=== PATIENT | male | born 1940 | race Caucasian/White ===

== ENCOUNTER → 2018-02-15 | Outpatient (CLI) | payer MEDICARE ==
[~2018-02-15] MED LIST: ADAL40KI SQ; AMLO10TA6 PO; APIX2.5T PO; ATOR40TA71 PO; FLUR15CA14 PO; FURO40TA5 PO; LEVO25TA54 PO; METO-409 PO; OMEP20CA10 PO; POTA10CA44 PO; PRAM0.5T3 PO; RAMI10CA69 PO; REGADENOSON 0.4 MG/5 ML PF SYG IVP SCH
== END | disposition home or self-care (01) ==
LOC: SHCH 07:44
PROVIDERS: ATTEND Internal Medicine Cardiovascular Disease
DX: I25.10 Atherosclerotic heart disease of native coronary artery without angina pectoris (principal); I11.0 Hypertensive heart disease with heart failure; I50.22 Chronic systolic (congestive) heart failure; I48.2 Chronic atrial fibrillation
CPT/HCPCS: 78452; 93017; 96374; A9500 ×2; J2785

== ENCOUNTER → 2018-03-01 | Outpatient (CLI) | payer MEDICARE ==
[~2018-03-01] MED LIST changes: -AMLO10TA6 PO; +AMLO10TA7 PO; -REGADENOSON 0.4 MG/5 ML PF SYG IVP SCH
== END | disposition home or self-care (01) ==
LOC: SHCH 10:26
PROVIDERS: ATTEND Internal Medicine Cardiovascular Disease
DX: I25.10 Atherosclerotic heart disease of native coronary artery without angina pectoris (principal); I50.22 Chronic systolic (congestive) heart failure; I48.2 Chronic atrial fibrillation; I87.2 Venous insufficiency (chronic) (peripheral)
CPT/HCPCS: 93306

== ENCOUNTER → 2018-03-19 | Outpatient (CLI) | payer MEDICARE ==
[~2018-03-19] MED LIST changes: +AMLO10TA6 PO; -AMLO10TA7 PO
== END | disposition home or self-care (01) ==
LOC: RAH 09:32
PROVIDERS: ATTEND Internal Medicine
DX: M25.552 Pain in left hip (principal)
CPT/HCPCS: 73502

== ENCOUNTER → 2021-05-03 | Outpatient (CLI) | payer MEDICARE ==
[~2021-05-03] MED LIST changes: +AMLO-258 PO; -AMLO10TA6 PO; -OMEP20CA10 PO; +OMEP20CA12 PO
== END | disposition home or self-care (01) ==
LOC: RAH 07:39
PROVIDERS: ATTEND Internal Medicine
DX: K80.20 Calculus of gallbladder without cholecystitis without obstruction (principal); K76.89 Other specified diseases of liver
CPT/HCPCS: 76705

== ENCOUNTER 2022-03-18 09:18 | Emergency (ER) | payer MEDICARE ==
[~2022-03-18] VITALS: Ht 185.4 cm; Wt 93.0 kg
[~2022-03-18 09:18] MED LIST changes: -POTA10CA44 PO; +POTA10CA45 PO
[2022-03-18 10:01] LABS: BASOPHILS % (AUTO) 0.3 % (0.0-5.0); EOSINOPHILS % (AUTO) 2.2 % (0.0-8.0); HEMATOCRIT 40.7 % (42-54); LYMPHOCYTES % (AUTO) 12.9 % (21.0-51.0); MEAN CORPUSCULAR HEMOGLOBIN 32.6 pg (27.0-33.0); MEAN CORPUSCULAR HGB CONC 32.7 g/dL (32.0-36.0); MEAN CORPUSCULAR VOLUME 99.8 fL (79-99); MONOCYTES % (AUTO) 10.4 % (3.0-13.0); NEUTROPHILS % (AUTO) 73.5 % (40.0-77.0); PLATELET COUNT (AUTO) 134 K/uL (130-400); RED BLOOD CELL COUNT(AUTO) 4.08 MIL/uL (4.50-6.20); RED CELL DISTRIBUTION WIDTH 14.9 % (11.0-15.5); WHITE BLOOD COUNT (AUTO) 7.7 K/uL (4.8-10.8)
[2022-03-18 10:10] LABS: CREATININE 1.3 mg/dL (0.5-1.5); POTASSIUM 3.3 mmol/L (3.5-5.1)
[2022-03-18 10:15] LABS: ALBUMIN 3.1 g/dL (3.5-5.0); TOTAL PROTEIN, SERUM 6.9 g/dL (6.0-8.3)
[2022-03-18] MEDS ORDERED: ZOSYN 3.375GM +NS 50ML IV STA (10:33)
[2022-03-18] MEDS ORDERED: CLINDAMYCIN IVPB 300MG/50ML 50 ML IV SCH (11:00)
[2022-03-18] MEDS ORDERED: AMOX1TAB16 PO (12:05)
[2022-03-18] MEDS ORDERED: CLIN-141 PO (12:05)
[2022-03-18 12:28] VITALS: BP 127/72
== END 2022-03-18 12:27 | disposition home or self-care (01) ==
LOC: EDH 09:18
DX: S81.812A Laceration without foreign body, left lower leg, initial encounter (principal); L97.929 Non-pressure chronic ulcer of unspecified part of left lower leg with unspecified severity; L03.116 Cellulitis of left lower limb; I11.9 Hypertensive heart disease without heart failure; I48.91 Unspecified atrial fibrillation; Z79.01 Long term (current) use of anticoagulants; Z79.899 Other long term (current) drug therapy; Z95.5 Presence of coronary angioplasty implant and graft; Z95.810 Presence of automatic (implantable) cardiac defibrillator; W45.8XXA Other foreign body or object entering through skin, initial encounter; Y93.89 Activity, other specified; Y92.89 Other specified places as the place of occurrence of the external cause; Y99.8 Other external cause status
CPT/HCPCS: 99284; 96365; 80053; 85025; 87040 ×2; 36415; 96368; J2543; J3490; 96375

== ENCOUNTER → 2022-03-23 | Outpatient (CLI) | payer MEDICARE ==
[~2022-03-23] MED LIST changes: +AMOX1TAB16 PO; +CLIN-141 PO
== END | disposition home or self-care (01) ==
LOC: WHH 09:06
PROVIDERS: ATTEND Family Medicine
DX: I87.333 Chronic venous hypertension (idiopathic) with ulcer and inflammation of bilateral lower extremity (principal); L97.812 Non-pressure chronic ulcer of other part of right lower leg with fat layer exposed; L97.822 Non-pressure chronic ulcer of other part of left lower leg with fat layer exposed; I89.0 Lymphedema, not elsewhere classified; I11.9 Hypertensive heart disease without heart failure; I48.20 Chronic atrial fibrillation, unspecified; Z79.01 Long term (current) use of anticoagulants; Z79.899 Other long term (current) drug therapy; Z95.810 Presence of automatic (implantable) cardiac defibrillator; Z95.5 Presence of coronary angioplasty implant and graft
CPT/HCPCS: 11042; A6021; A6197; A4450

== ENCOUNTER → 2022-03-30 | Outpatient (CLI) | payer MEDICARE ==
[~2022-03-30] MED LIST changes: +LIDOCAINE HCL 4% LTA SOL 4 ML VIAL TP ONE
== END | disposition home or self-care (01) ==
LOC: WHH 09:01
PROVIDERS: ATTEND Family Medicine
DX: I87.333 Chronic venous hypertension (idiopathic) with ulcer and inflammation of bilateral lower extremity (principal); E11.622 Type 2 diabetes mellitus with other skin ulcer; L97.812 Non-pressure chronic ulcer of other part of right lower leg with fat layer exposed; L97.822 Non-pressure chronic ulcer of other part of left lower leg with fat layer exposed; I89.0 Lymphedema, not elsewhere classified; I11.9 Hypertensive heart disease without heart failure; I48.20 Chronic atrial fibrillation, unspecified; Z79.01 Long term (current) use of anticoagulants; Z79.899 Other long term (current) drug therapy; Z95.810 Presence of automatic (implantable) cardiac defibrillator; Z95.5 Presence of coronary angioplasty implant and graft
CPT/HCPCS: 11042; A6248; A6021; A6197

== ENCOUNTER → 2022-04-10 | Outpatient (CLI) | payer MEDICARE ==
[~2022-04-10] MED LIST changes: +SILVER NITRATE APPLICATOR 1 SWAB TP ONE
== END | disposition home or self-care (01) ==
LOC: WHH 09:42
PROVIDERS: ATTEND Family Medicine
DX: I87.333 Chronic venous hypertension (idiopathic) with ulcer and inflammation of bilateral lower extremity (principal); E11.622 Type 2 diabetes mellitus with other skin ulcer; L97.812 Non-pressure chronic ulcer of other part of right lower leg with fat layer exposed; L97.822 Non-pressure chronic ulcer of other part of left lower leg with fat layer exposed; I89.0 Lymphedema, not elsewhere classified; I11.9 Hypertensive heart disease without heart failure; I48.20 Chronic atrial fibrillation, unspecified; Z79.01 Long term (current) use of anticoagulants; Z79.899 Other long term (current) drug therapy; Z95.810 Presence of automatic (implantable) cardiac defibrillator; Z95.5 Presence of coronary angioplasty implant and graft
CPT/HCPCS: 11042; A6021; A6197

== ENCOUNTER → 2022-04-17 | Outpatient (CLI) | payer MEDICARE ==
[~2022-04-17] MED LIST changes: -SILVER NITRATE APPLICATOR 1 SWAB TP ONE
== END | disposition home or self-care (01) ==
LOC: WHH 10:16
PROVIDERS: ATTEND Family Medicine
DX: I87.333 Chronic venous hypertension (idiopathic) with ulcer and inflammation of bilateral lower extremity (principal); E11.622 Type 2 diabetes mellitus with other skin ulcer; L97.812 Non-pressure chronic ulcer of other part of right lower leg with fat layer exposed; L97.822 Non-pressure chronic ulcer of other part of left lower leg with fat layer exposed; I89.0 Lymphedema, not elsewhere classified; I11.9 Hypertensive heart disease without heart failure; I48.20 Chronic atrial fibrillation, unspecified; Z79.01 Long term (current) use of anticoagulants; Z79.899 Other long term (current) drug therapy; Z95.810 Presence of automatic (implantable) cardiac defibrillator; Z95.5 Presence of coronary angioplasty implant and graft
CPT/HCPCS: 11042; A6021; A6197; A4450

== ENCOUNTER → 2022-04-24 | Outpatient (CLI) | payer MEDICARE | END | disposition home or self-care (01) | LOC: WHH 09:14 | PROVIDERS: ATTEND Family Medicine | DX: I87.333 Chronic venous hypertension (idiopathic) with ulcer and inflammation of bilateral lower extremity (principal); E11.622 Type 2 diabetes mellitus with other skin ulcer; L97.812 Non-pressure chronic ulcer of other part of right lower leg with fat layer exposed; L97.822 Non-pressure chronic ulcer of other part of left lower leg with fat layer exposed; I89.0 Lymphedema, not elsewhere classified; I11.9 Hypertensive heart disease without heart failure; I48.20 Chronic atrial fibrillation, unspecified; Z79.01 Long term (current) use of anticoagulants; Z79.899 Other long term (current) drug therapy; Z95.810 Presence of automatic (implantable) cardiac defibrillator; Z95.5 Presence of coronary angioplasty implant and graft | CPT/HCPCS: 11042; A6021; A6197 ==

== ENCOUNTER → 2022-05-01 | Outpatient (CLI) | payer MEDICARE | END | disposition home or self-care (01) | LOC: WHH 09:51 | PROVIDERS: ATTEND Family Medicine | DX: I87.333 Chronic venous hypertension (idiopathic) with ulcer and inflammation of bilateral lower extremity (principal); E11.622 Type 2 diabetes mellitus with other skin ulcer; L97.812 Non-pressure chronic ulcer of other part of right lower leg with fat layer exposed; L97.822 Non-pressure chronic ulcer of other part of left lower leg with fat layer exposed; I89.0 Lymphedema, not elsewhere classified; I11.9 Hypertensive heart disease without heart failure; I48.20 Chronic atrial fibrillation, unspecified; Z79.01 Long term (current) use of anticoagulants; Z79.899 Other long term (current) drug therapy; Z95.810 Presence of automatic (implantable) cardiac defibrillator; Z95.5 Presence of coronary angioplasty implant and graft | CPT/HCPCS: 11042; A6021; A6197 ==

== ENCOUNTER → 2022-05-09 | Outpatient (CLI) | payer MEDICARE ==
[~2022-05-09] MED LIST changes: -LIDOCAINE HCL 4% LTA SOL 4 ML VIAL TP ONE
== END | disposition home or self-care (01) ==
LOC: SHCH 15:15
PROVIDERS: ATTEND Internal Medicine Cardiovascular Disease
DX: I34.0 Nonrheumatic mitral (valve) insufficiency (principal); I34.81 Nonrheumatic mitral (valve) annulus calcification; I11.9 Hypertensive heart disease without heart failure; E78.5 Hyperlipidemia, unspecified; Z95.2 Presence of prosthetic heart valve; Z95.0 Presence of cardiac pacemaker; Z95.1 Presence of aortocoronary bypass graft
CPT/HCPCS: 93306

== ENCOUNTER → 2022-05-15 | Outpatient (CLI) | payer MEDICARE ==
[~2022-05-15] MED LIST changes: +LIDOCAINE HCL 4% LTA SOL 4 ML VIAL TP ONE
== END | disposition home or self-care (01) ==
LOC: WHH 09:03
PROVIDERS: ATTEND Family Medicine
DX: I87.333 Chronic venous hypertension (idiopathic) with ulcer and inflammation of bilateral lower extremity (principal); E11.622 Type 2 diabetes mellitus with other skin ulcer; L97.812 Non-pressure chronic ulcer of other part of right lower leg with fat layer exposed; L97.822 Non-pressure chronic ulcer of other part of left lower leg with fat layer exposed; I89.0 Lymphedema, not elsewhere classified; I11.9 Hypertensive heart disease without heart failure; I48.20 Chronic atrial fibrillation, unspecified; Z79.01 Long term (current) use of anticoagulants; Z79.899 Other long term (current) drug therapy; Z95.810 Presence of automatic (implantable) cardiac defibrillator; Z95.5 Presence of coronary angioplasty implant and graft
CPT/HCPCS: 11042; A6021; A6197

== ENCOUNTER → 2022-05-22 | Outpatient (CLI) | payer MEDICARE | END | disposition home or self-care (01) | LOC: WHH 08:48 | PROVIDERS: ATTEND Family Medicine | DX: I87.333 Chronic venous hypertension (idiopathic) with ulcer and inflammation of bilateral lower extremity (principal); E11.622 Type 2 diabetes mellitus with other skin ulcer; L97.822 Non-pressure chronic ulcer of other part of left lower leg with fat layer exposed; L97.812 Non-pressure chronic ulcer of other part of right lower leg with fat layer exposed; I89.0 Lymphedema, not elsewhere classified; I11.9 Hypertensive heart disease without heart failure; I48.20 Chronic atrial fibrillation, unspecified; Z79.01 Long term (current) use of anticoagulants; Z79.899 Other long term (current) drug therapy; Z95.810 Presence of automatic (implantable) cardiac defibrillator; Z95.5 Presence of coronary angioplasty implant and graft | CPT/HCPCS: 11042; A6021; A6197 ==

== ENCOUNTER → 2022-05-23 | Outpatient (CLI) | payer MEDICARE ==
[~2022-05-23] MED LIST changes: -LIDOCAINE HCL 4% LTA SOL 4 ML VIAL TP ONE
== END | disposition home or self-care (01) ==
LOC: SHCH 09:45
PROVIDERS: ATTEND Internal Medicine Cardiovascular Disease
DX: I87.2 Venous insufficiency (chronic) (peripheral) (principal)
CPT/HCPCS: 93970

== ENCOUNTER → 2022-06-06 | Outpatient (CLI) | payer MEDICARE ==
[~2022-06-06] MED LIST changes: +HONEY 1 APPL/ML TUBE TP ONE; +LIDOCAINE HCL 4% LTA SOL 4 ML VIAL TP ONE
== END | disposition home or self-care (01) ==
LOC: WHH 09:15
PROVIDERS: ATTEND Family Medicine
DX: I87.333 Chronic venous hypertension (idiopathic) with ulcer and inflammation of bilateral lower extremity (principal); E11.622 Type 2 diabetes mellitus with other skin ulcer; L97.822 Non-pressure chronic ulcer of other part of left lower leg with fat layer exposed; L97.812 Non-pressure chronic ulcer of other part of right lower leg with fat layer exposed; I89.0 Lymphedema, not elsewhere classified; I11.9 Hypertensive heart disease without heart failure; I48.20 Chronic atrial fibrillation, unspecified; Z79.01 Long term (current) use of anticoagulants; Z79.899 Other long term (current) drug therapy; Z95.810 Presence of automatic (implantable) cardiac defibrillator; Z95.5 Presence of coronary angioplasty implant and graft
CPT/HCPCS: 11042; A6197; A4450

== ENCOUNTER → 2022-06-13 | Outpatient (CLI) | payer MEDICARE ==
[~2022-06-13] MED LIST changes: -HONEY 1 APPL/ML TUBE TP ONE
== END | disposition home or self-care (01) ==
LOC: WHH 08:59
PROVIDERS: ATTEND Family Medicine
DX: I87.333 Chronic venous hypertension (idiopathic) with ulcer and inflammation of bilateral lower extremity (principal); E11.622 Type 2 diabetes mellitus with other skin ulcer; L97.812 Non-pressure chronic ulcer of other part of right lower leg with fat layer exposed; L97.822 Non-pressure chronic ulcer of other part of left lower leg with fat layer exposed; I89.0 Lymphedema, not elsewhere classified; I11.9 Hypertensive heart disease without heart failure; I48.20 Chronic atrial fibrillation, unspecified; Z79.01 Long term (current) use of anticoagulants; Z79.899 Other long term (current) drug therapy; Z95.810 Presence of automatic (implantable) cardiac defibrillator; Z95.5 Presence of coronary angioplasty implant and graft
CPT/HCPCS: 11042; A6197

== ENCOUNTER → 2022-07-04 | Outpatient (CLI) | payer MEDICARE | END | disposition home or self-care (01) | LOC: WHH 10:29 | PROVIDERS: ATTEND Family Medicine | DX: I87.333 Chronic venous hypertension (idiopathic) with ulcer and inflammation of bilateral lower extremity (principal); E11.622 Type 2 diabetes mellitus with other skin ulcer; L97.812 Non-pressure chronic ulcer of other part of right lower leg with fat layer exposed; L97.822 Non-pressure chronic ulcer of other part of left lower leg with fat layer exposed; I89.0 Lymphedema, not elsewhere classified; I11.9 Hypertensive heart disease without heart failure; E78.5 Hyperlipidemia, unspecified; I25.10 Atherosclerotic heart disease of native coronary artery without angina pectoris; I48.20 Chronic atrial fibrillation, unspecified; Z79.01 Long term (current) use of anticoagulants; Z79.899 Other long term (current) drug therapy; Z95.810 Presence of automatic (implantable) cardiac defibrillator; Z95.5 Presence of coronary angioplasty implant and graft | CPT/HCPCS: 11042; A6196; A4450 ==

== ENCOUNTER → 2022-07-11 | Outpatient (CLI) | payer MEDICARE ==
[~2022-07-11] MED LIST changes: -LIDOCAINE HCL 4% LTA SOL 4 ML VIAL TP ONE; +REGADENOSON 0.4 MG/5 ML PF SYG IVP ONE
== END | disposition home or self-care (01) ==
LOC: SHCH 08:15
PROVIDERS: ATTEND Internal Medicine Cardiovascular Disease
DX: I25.110 Atherosclerotic heart disease of native coronary artery with unstable angina pectoris (principal); I48.91 Unspecified atrial fibrillation; R94.39 Abnormal result of other cardiovascular function study; I11.9 Hypertensive heart disease without heart failure; I25.5 Ischemic cardiomyopathy; I87.2 Venous insufficiency (chronic) (peripheral); I87.1 Compression of vein; E78.49 Other hyperlipidemia; Z95.1 Presence of aortocoronary bypass graft; Z95.0 Presence of cardiac pacemaker; Z79.899 Other long term (current) drug therapy
CPT/HCPCS: 78452; 96374; 93017; J2785; A9500 ×2

== ENCOUNTER → 2023-05-14 | Outpatient (CLI) | payer MEDICARE ==
[~2023-05-14] MED LIST changes: +LIDOCAINE HCL 4% LTA SOL 4 ML VIAL TP ONE; -POTA10CA45 PO; +POTA10CA85 PO; -REGADENOSON 0.4 MG/5 ML PF SYG IVP ONE
== END | disposition home or self-care (01) ==
LOC: WHH 09:41
PROVIDERS: ATTEND Nurse Practitioner Family
DX: S81.812A Laceration without foreign body, left lower leg, initial encounter (principal); L97.822 Non-pressure chronic ulcer of other part of left lower leg with fat layer exposed; K21.9 Gastro-esophageal reflux disease without esophagitis; I73.9 Peripheral vascular disease, unspecified; G25.81 Restless legs syndrome; I10 Essential (primary) hypertension; E03.9 Hypothyroidism, unspecified; H26.9 Unspecified cataract; I25.10 Atherosclerotic heart disease of native coronary artery without angina pectoris; Z87.891 Personal history of nicotine dependence; Z79.899 Other long term (current) drug therapy; W22.8XXA Striking against or struck by other objects, initial encounter; Y93.89 Activity, other specified; Y92.89 Other specified places as the place of occurrence of the external cause; Y99.8 Other external cause status
CPT/HCPCS: 11042; 87070; 87077; 87186; 11045; A6248; A4450; A6260

== ENCOUNTER → 2023-05-21 | Outpatient (CLI) | payer MEDICARE ==
[~2023-05-21] MED LIST changes: -LIDOCAINE HCL 4% LTA SOL 4 ML VIAL TP ONE
== END | disposition home or self-care (01) ==
LOC: WHH 09:43
PROVIDERS: ATTEND Nurse Practitioner Family
DX: S81.812D Laceration without foreign body, left lower leg, subsequent encounter (principal); S81.802D Unspecified open wound, left lower leg, subsequent encounter; L97.822 Non-pressure chronic ulcer of other part of left lower leg with fat layer exposed; K21.9 Gastro-esophageal reflux disease without esophagitis; I73.9 Peripheral vascular disease, unspecified; G25.81 Restless legs syndrome; I10 Essential (primary) hypertension; E03.9 Hypothyroidism, unspecified; H26.9 Unspecified cataract; M10.9 Gout, unspecified; I25.10 Atherosclerotic heart disease of native coronary artery without angina pectoris; Z98.49 Cataract extraction status, unspecified eye; Z90.49 Acquired absence of other specified parts of digestive tract; Z87.891 Personal history of nicotine dependence; Z79.899 Other long term (current) drug therapy; W22.8XXD Striking against or struck by other objects, subsequent encounter
CPT/HCPCS: 11042; 11045; A6250; A6197

== ENCOUNTER → 2023-05-28 | Outpatient (CLI) | payer MEDICARE | END | disposition home or self-care (01) | LOC: WHH 09:40 | PROVIDERS: ATTEND Nurse Practitioner Family | DX: S81.812D Laceration without foreign body, left lower leg, subsequent encounter (principal); L97.822 Non-pressure chronic ulcer of other part of left lower leg with fat layer exposed; K21.9 Gastro-esophageal reflux disease without esophagitis; I73.9 Peripheral vascular disease, unspecified; I10 Essential (primary) hypertension; I25.10 Atherosclerotic heart disease of native coronary artery without angina pectoris; E03.9 Hypothyroidism, unspecified; M10.9 Gout, unspecified; G25.81 Restless legs syndrome; Z87.891 Personal history of nicotine dependence; Z79.899 Other long term (current) drug therapy; Z98.49 Cataract extraction status, unspecified eye; Z90.49 Acquired absence of other specified parts of digestive tract; W22.8XXD Striking against or struck by other objects, subsequent encounter | CPT/HCPCS: 11042; 11045; A6250; A6197; A6260 ==

== ENCOUNTER → 2023-05-29 | Outpatient (CLI) | payer MEDICARE | END | disposition home or self-care (01) | LOC: WHH 10:12 | PROVIDERS: ATTEND Nurse Practitioner Family | DX: S81.812D Laceration without foreign body, left lower leg, subsequent encounter (principal); L97.822 Non-pressure chronic ulcer of other part of left lower leg with fat layer exposed; K21.9 Gastro-esophageal reflux disease without esophagitis; I73.9 Peripheral vascular disease, unspecified; I10 Essential (primary) hypertension; I25.10 Atherosclerotic heart disease of native coronary artery without angina pectoris; E03.9 Hypothyroidism, unspecified; M10.9 Gout, unspecified; G25.81 Restless legs syndrome; Z98.49 Cataract extraction status, unspecified eye; Z90.49 Acquired absence of other specified parts of digestive tract; Z87.891 Personal history of nicotine dependence; Z79.899 Other long term (current) drug therapy; W22.8XXD Striking against or struck by other objects, subsequent encounter | CPT/HCPCS: 93922; A6197 ==

== ENCOUNTER → 2023-06-04 | Outpatient (CLI) | payer MEDICARE ==
[~2023-06-04] MED LIST changes: +LIDOCAINE HCL 4% LTA SOL 4 ML VIAL TP ONE
== END | disposition home or self-care (01) ==
LOC: WHH 10:25
PROVIDERS: ATTEND Nurse Practitioner Family
DX: S81.812D Laceration without foreign body, left lower leg, subsequent encounter (principal); L97.822 Non-pressure chronic ulcer of other part of left lower leg with fat layer exposed; K21.9 Gastro-esophageal reflux disease without esophagitis; I73.9 Peripheral vascular disease, unspecified; I10 Essential (primary) hypertension; I25.10 Atherosclerotic heart disease of native coronary artery without angina pectoris; E03.9 Hypothyroidism, unspecified; M10.9 Gout, unspecified; G25.81 Restless legs syndrome; Z98.49 Cataract extraction status, unspecified eye; Z90.49 Acquired absence of other specified parts of digestive tract; Z87.891 Personal history of nicotine dependence; Z79.899 Other long term (current) drug therapy; W22.8XXD Striking against or struck by other objects, subsequent encounter
CPT/HCPCS: 11042; 11045; A6197; A4450

== ENCOUNTER → 2023-06-11 | Outpatient (CLI) | payer MEDICARE | END | disposition home or self-care (01) | LOC: WHH 09:59 | PROVIDERS: ATTEND Nurse Practitioner Family | DX: S81.812D Laceration without foreign body, left lower leg, subsequent encounter (principal); L97.822 Non-pressure chronic ulcer of other part of left lower leg with fat layer exposed; I87.8 Other specified disorders of veins; I10 Essential (primary) hypertension; I73.9 Peripheral vascular disease, unspecified; K21.9 Gastro-esophageal reflux disease without esophagitis; I25.10 Atherosclerotic heart disease of native coronary artery without angina pectoris; E03.9 Hypothyroidism, unspecified; M10.9 Gout, unspecified; G25.81 Restless legs syndrome; Z98.49 Cataract extraction status, unspecified eye; Z90.49 Acquired absence of other specified parts of digestive tract; Z87.891 Personal history of nicotine dependence; Z79.899 Other long term (current) drug therapy; W22.8XXD Striking against or struck by other objects, subsequent encounter | CPT/HCPCS: 11042; 11045; A6196; A6022 ==

== ENCOUNTER → 2023-06-18 | Outpatient (CLI) | payer MEDICARE | END | disposition home or self-care (01) | LOC: WHH 09:47 | PROVIDERS: ATTEND Nurse Practitioner Family | DX: S81.802D Unspecified open wound, left lower leg, subsequent encounter (principal); I87.8 Other specified disorders of veins; I10 Essential (primary) hypertension; I73.9 Peripheral vascular disease, unspecified; K21.9 Gastro-esophageal reflux disease without esophagitis; I25.10 Atherosclerotic heart disease of native coronary artery without angina pectoris; E03.9 Hypothyroidism, unspecified; M10.9 Gout, unspecified; G25.81 Restless legs syndrome; Z98.49 Cataract extraction status, unspecified eye; Z90.49 Acquired absence of other specified parts of digestive tract; Z87.891 Personal history of nicotine dependence; Z79.899 Other long term (current) drug therapy; W22.8XXD Striking against or struck by other objects, subsequent encounter | CPT/HCPCS: 11042; 11045; A6197; A6022 ==

== ENCOUNTER → 2023-06-25 | Outpatient (CLI) | payer MEDICARE | END | disposition home or self-care (01) | LOC: WHH 08:29 | PROVIDERS: ATTEND Nurse Practitioner Family | DX: L97.822 Non-pressure chronic ulcer of other part of left lower leg with fat layer exposed (principal); S81.802D Unspecified open wound, left lower leg, subsequent encounter; I87.8 Other specified disorders of veins; I10 Essential (primary) hypertension; I73.9 Peripheral vascular disease, unspecified; K21.9 Gastro-esophageal reflux disease without esophagitis; E03.9 Hypothyroidism, unspecified; I25.10 Atherosclerotic heart disease of native coronary artery without angina pectoris; G25.81 Restless legs syndrome; M10.9 Gout, unspecified; Z98.49 Cataract extraction status, unspecified eye; Z90.49 Acquired absence of other specified parts of digestive tract; Z87.891 Personal history of nicotine dependence; Z79.899 Other long term (current) drug therapy; W22.8XXD Striking against or struck by other objects, subsequent encounter | CPT/HCPCS: 11042; A6250; A6197; A6022 ==

== ENCOUNTER → 2023-06-29 | Emergency (ER) | payer MEDICARE ==
[~2023-06-29] VITALS: Ht 185.4 cm; Wt 90.7 kg
[~2023-06-29] MED LIST changes: -LIDOCAINE HCL 4% LTA SOL 4 ML VIAL TP ONE
[2023-06-29 11:24] LABS: BASOPHILS # (AUTO) 0.05 K/uL (0.00-0.20); BASOPHILS % (AUTO) 0.7 % (0.0-5.0); EOSINOPHILS % (AUTO) 2.8 % (0.0-8.0); HEMATOCRIT 32.7 % (42-54); IMMATURE GRANULOCYTE ABSOLUTE 0.03 K/uL (0-1); LYMPHOCYTES # (AUTO) 1.1 K/uL (1.0-4.8); LYMPHOCYTES % (AUTO) 15.1 % (21.0-51.0); MEAN CORPUSCULAR HEMOGLOBIN 28.6 pg (27.0-33.0); MEAN CORPUSCULAR HGB CONC 30.9 g/dL (32.0-36.0); MEAN CORPUSCULAR VOLUME 92.6 fL (79-99); MONOCYTES # (AUTO) 0.6 K/uL (0.1-1.0); MONOCYTES % (AUTO) 8.3 % (3.0-13.0); NEUTROPHILS # (AUTO) 5.2 K/uL (1.8-7.7); NEUTROPHILS % (AUTO) 72.7 % (40.0-77.0); PLATELET COUNT (AUTO) 169 K/uL (130-400); RED BLOOD CELL COUNT(AUTO) 3.53 MIL/uL (4.50-6.20); RED CELL DISTRIBUTION WIDTH 17.4 % (11.0-15.5); WHITE BLOOD COUNT (AUTO) 7.2 K/uL (4.8-10.8)
[2023-06-29 11:36] LABS: INR 1.07 (0.85-1.15); PROTHROMBIN TIME 12.6 SEC (9.6-11.6)
[2023-06-29 11:37] LABS: PARTIAL THROMBOPLASTIN TIME 34.8 SEC (26.3-35.5)
[2023-06-29 11:41] LABS: ALBUMIN 3.1 g/dL (3.5-5.0); BILIRUBIN,TOTAL 1.9 mg/dL (0.2-1.0); CREATININE 1.8 mg/dL (0.5-1.3); TOTAL PROTEIN, SERUM 6.8 g/dL (6.0-8.3)
[2023-06-29 12:11] LABS: APPEARANCE,URINE CLEAR (CLEAR); BILIRUBIN,URINE NEGATIVE (NEGATIVE); COLOR,URINE LIGHT-YELLOW (YELLOW); GLUCOSE, URINE (UA) NEGATIVE (NEGATIVE); KETONES,URINE NEGATIVE (NEGATIVE); LEUKOCYTE ESTERASE ,URINE NEGATIVE Leu/uL (NEGATIVE); NITRATE,URINE NEGATIVE (NEGATIVE); OCCULT BLOOD,URINE NEGATIVE (NEGATIVE); PH,URINE 5.5 (5.0-8.0); PROTEIN,URINE NEGATIVE (NEGATIVE); UROBILINOGEN,URINE 0.2 mg/dL (0.2-1.0)
[2023-06-29] MEDS: POTASSIUM CHLORIDE 20MEQ/100ML 100 ML IV ONE (12:11)
[2023-06-29 12:12] LABS: ADD UA MICROSCOPIC NO
[2023-06-29 12:16] LABS: B-TYPE NATRIURETIC PEPTIDE 602 pg/mL (0-100)
[2023-06-29 14:19] VITALS: BP 145/87; PULSE 87; RESP 18; O2SAT 94
== END ==
LOC: EDH 10:52
DX: I50.23 Acute on chronic systolic (congestive) heart failure (principal); L97.829 Non-pressure chronic ulcer of other part of left lower leg with unspecified severity; R06.02 Shortness of breath; I10 Essential (primary) hypertension; I48.91 Unspecified atrial fibrillation; Z79.899 Other long term (current) drug therapy; Z95.5 Presence of coronary angioplasty implant and graft; Z98.890 Other specified postprocedural states
CPT/HCPCS: 99285; 96365; 71045; 84484; 80053; 83880; 85025; 85610; 85730; 81003; 36415; 93005; J3480

== ENCOUNTER → 2023-07-02 | Outpatient (CLI) | payer MEDICARE ==
[~2023-07-02] MED LIST changes: +LIDOCAINE HCL 4% LTA SOL 4 ML VIAL TP ONE
== END | disposition home or self-care (01) ==
LOC: WHH 09:38
PROVIDERS: ATTEND Nurse Practitioner Family
DX: L97.822 Non-pressure chronic ulcer of other part of left lower leg with fat layer exposed (principal); S81.802D Unspecified open wound, left lower leg, subsequent encounter; I87.8 Other specified disorders of veins; I10 Essential (primary) hypertension; I73.9 Peripheral vascular disease, unspecified; K21.9 Gastro-esophageal reflux disease without esophagitis; E03.9 Hypothyroidism, unspecified; I25.10 Atherosclerotic heart disease of native coronary artery without angina pectoris; G25.81 Restless legs syndrome; M10.9 Gout, unspecified; Z98.49 Cataract extraction status, unspecified eye; Z90.49 Acquired absence of other specified parts of digestive tract; Z87.891 Personal history of nicotine dependence; Z79.899 Other long term (current) drug therapy; W22.8XXD Striking against or struck by other objects, subsequent encounter
CPT/HCPCS: 11042; A6197; A6022; A4450

== ENCOUNTER 2024-02-05 19:18 | Inpatient (IN) | payer MEDICARE ==
[~2024-02-05] VITALS: Ht 182.9 cm; Wt 95.6 kg
[~2024-02-05 19:18] MED LIST changes: -LIDOCAINE HCL 4% LTA SOL 4 ML VIAL TP ONE; -POTA10CA85 PO; +POTA10CA95 PO; -RAMI10CA69 PO; +RAMI10CA76 PO
[2024-02-05 20:24] LABS: BASOPHILS # (AUTO) 0.02 K/uL (0.00-0.20); BASOPHILS % (AUTO) 0.2 % (0.0-5.0); EOSINOPHILS # (AUTO) 0.07 K/uL (0.00-0.70); EOSINOPHILS % (AUTO) 0.8 % (0.0-8.0); HEMATOCRIT 35.5 % (42-54); IMMATURE GRANULOCYTE ABSOLUTE 0.02 K/uL (0-1); LYMPHOCYTES # (AUTO) 1.1 K/uL (1.0-4.8); LYMPHOCYTES % (AUTO) 11.9 % (21.0-51.0); MEAN CORPUSCULAR HEMOGLOBIN 28.8 pg (27.0-33.0); MEAN CORPUSCULAR HGB CONC 32.1 g/dL (32.0-36.0); MEAN CORPUSCULAR VOLUME 89.6 fL (79-99); MONOCYTES # (AUTO) 0.6 K/uL (0.1-1.0); MONOCYTES % (AUTO) 6.4 % (3.0-13.0); NEUTROPHILS # (AUTO) 7.2 K/uL (1.8-7.7); NEUTROPHILS % (AUTO) 80.5 % (40.0-77.0); PLATELET COUNT (AUTO) 160 K/uL (130-400); RED BLOOD CELL COUNT(AUTO) 3.96 MIL/uL (4.50-6.20); RED CELL DISTRIBUTION WIDTH 18.6 % (11.0-15.5)
[2024-02-05 20:45] LABS: ALBUMIN 3.2 g/dL (3.5-5.0); BILIRUBIN,TOTAL 3.2 mg/dL (0.2-1.0); CREATININE 1.4 mg/dL (0.5-1.3); POTASSIUM 3.1 mmol/L (3.5-5.1); TOTAL PROTEIN, SERUM 7.1 g/dL (6.0-8.3)
[2024-02-05 20:51] LABS: APPEARANCE,URINE CLEAR (CLEAR); BILIRUBIN,URINE NEGATIVE (NEGATIVE); COLOR,URINE LIGHT-YELLOW (YELLOW); GLUCOSE, URINE (UA) NEGATIVE (NEGATIVE); KETONES,URINE NEGATIVE (NEGATIVE); LEUKOCYTE ESTERASE ,URINE NEGATIVE Leu/uL (NEGATIVE); NITRATE,URINE NEGATIVE (NEGATIVE); OCCULT BLOOD,URINE NEGATIVE (NEGATIVE); PH,URINE 6.5 (5.0-8.0); PROTEIN,URINE NEGATIVE (NEGATIVE); UROBILINOGEN,URINE 0.2 mg/dL (0.2-1.0)
--- NOTE | 2024-02-05 20:54 | HMCIMG ---
CHEST 1VW CLINICAL HISTORY: PAIN COMPARISON: 06/29/2023 TECHNIQUE: Single view of the chest was obtained. FINDINGS: Lungs are clear. The cardiac size is enlarged but stable. Again demonstrates changes of prior median sternotomy. The pacemaker is unchanged. IMPRESSION: Stable cardiomegaly
[2024-02-05 20:56] LABS: ADD UA MICROSCOPIC NO
--- NOTE | 2024-02-05 21:08 | HMCIMG ---
CT ABDOMEN/PELVIS W/O CONTRAST CLINICAL HISTORY: PAIN COMPARISON: 04/13/2016 TECHNIQUE: Sequential axial images of abdomen and pelvis without contrast and with sagittal and coronal reconstructions. CT was performed with one or more of the following dose reduction techniques: automated exposure control, adjustment of the mA and/or kV according to patient size, or use of iterative reconstruction technique FINDINGS: There is mild atelectasis lung bases. There is demonstrated is cardiomegaly and artifact from pacemaker wires. The liver is and spleen are unremarkable. There are multiple gallbladder calculi. The pancreas adrenal glands and right kidney and bladder are unremarkable. Note is made of a stable exophytic left renal cortical cyst and left renal cortical thinning. There is no identified bowel obstruction. There is no bulky abdominal or retroperitoneal lymphadenopathy. There is no free air or free fluid. The appendix is not identified but there are no findings to suggest acute appendicitis. The prostate gland appears unremarkable. There is stable advanced degenerative changes of the spine. There is also very mild calcified atherosclerotic vascular disease of the aorta without aneurysm dilatation. IMPRESSION: Stable cardiomegaly. Cholelithiasis. Left renal exophytic cortical cyst with renal cortical thinning.
--- NOTE | 2024-02-05 21:56 | ERN ---
ED Note History of Present Illness Stated Complaint: DIARRHEA, LUQ ABDOMINAL PAIN Chief Complaint: Abdominal Pain Time Seen by MD: 19:32 Time Seen by Midlevel: 19:32 Dictation: 84-year-old male who presents to the emergency department per EMS due to re ported having epigastric pain and left upper quadrant pain that began 1 hour prior to arrival. He states that the pain was particularly sharp and lasted approximately 20 minutes. There was no report of any fever or chills associated with this. Patient does report having some mild difficulty when this occurred. At this time, he denies having any chest pain, chest pressure or shortness of breath. Patient states that he does have a longstanding cardiac history and is concerned that this might be related to it. 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: IV Home Meds Active Scripts Clindamycin HCl (Clindamycin HCl) 300 Mg Capsule, 1 CAP PO QID for 10 Days, #40 CAP 0 Refills Prov:ARTEMIO PINEDO MD 03/18/22 Amoxicillin/Potassium Clav (Amox Tr-K Clv 875-125 mg Tab) 1 Each Tablet, 1 EACH PO BID for 10 Days, #20 TAB Prov:ARTEMIO PINEDO MD 03/18/22 Reported Medications Potassium Chloride (Potassium Chloride) 10 Meq Capsule.er, 10 MEQ PO DAILY, CAP 04/13/16 Flurazepam HCl (Flurazepam HCl) 15 Mg Capsule, 15 MG PO HS, CAP 04/13/16 Amlodipine Besylate (Amlodipine Besylate) 10 Mg Tablet, 10 MG PO DAILY, TAB 04/13/16 Metoprolol Succinate (Metoprolol Succinate) 100 Mg Tab.er.24h, 100 MG PO DAILY, TAB 04/13/16 Ramipril (Ramipril) 10 Mg Capsule, 20 MG PO DAILY, CAP 06/06/15 Pramipexole Di-HCl (Mirapex) 0.5 Mg Tablet, 0.5 MG PO HS, TAB 06/06/15 Omeprazole (Omeprazole) 20 Mg Capsule.dr, 20 MG PO DAILY, CAP 06/06/15 Levothyroxine Sodium (Levothyroxine Sodium) 25 Mcg Tablet, 25 MCG PO BID, TAB 06/06/15 Furosemide (Furosemide) 40 Mg Tablet, 40 MG PO DAILY, TAB 06/06/15 Apixaban (Eliquis) 2.5 Mg Tablet, 5 MG PO BID, TAB 06/06/15 Atorvastatin Calcium (Atorvastatin Calcium) 40 Mg Tablet, 40 MG PO DAILY, TAB 06/06/15 Adalimumab (Humira) 40 Mg/0.8 Ml Kit, 40 MG SQ [id number], KIT 03/17/14 Past Medical History Past Medical History: A-Fib, Heart Disease, Hypertension Surgical History: Pacer/AICD Surgical History Other: HEART STENTS, PIG VALVE Social History: ETOH, Lives with family RN Note Reviewed/Agreed w/PFSH: Yes Review of System Dictation Respiratory: Shortness of breath Abdomen/GI: Abdominal pain Initial Vital Sign VS Vital Signs Date Time Temp Pulse Resp B/P (MAP) Pulse Ox O2 Delivery O2 Flow Rate FiO2 02/05/24 19:20 110 20 139/92 98 Room Air 0 02/05/24 20:16 98.8 21 Physical Exam Dictation General: awake, alert, NAD Head/Face: Normocephalic, atraumatic Eyes: PERRL, EOMI ENT: Oral mucosa moist Neck: Trachea midline, supple Cardiovascular: Irregular, 1+ pitting edema both lower extremities Respiratory: Symmetrical, non-labored Abdomen: Soft, non-tender, non-distended, no guarding. Skin: Warm, dry, good turgor, no rash MS/Extremity: Pulses equal, no cyanosis, neurovascular intact, FROM Neuro: COAx4, GCS 15, steady gait, Psych: Normal behavior, mood, and affect normal Results (Laboratory/Radiology) Laboratory/Radiology Laboratory Tests Test 02/05/24 19:51 02/05/24 20:11 02/05/24 21:20 Urine Color LIGHT-YELLOW (YELLOW) Urine Appearance CLEAR (CLEAR) Urine pH 6.5 (5.0-8.0) Urine Specific [place] 1.008 (1.001-1.031) Urine Protein NEGATIVE mg/dL (NEGATIVE) Urine Glucose (UA) NEGATIVE mg/dL (NEGATIVE) Urine Ketones NEGATIVE mg/dL (NEGATIVE) Urine Occult Blood NEGATIVE (NEGATIVE) Urine Nitrate NEGATIVE (NEGATIVE) Urine Bilirubin NEGATIVE mg/dL (NEGATIVE) Urine Urobilinogen 0.2 mg/dL (0.2-1.0) Urine Leukocyte Esterase NEGATIVE Vin/uL White Blood Count 9.0 K/uL (4.8-10.8) Red Blood Count 3.96 MIL/uL (4.50-6.20) L Hemoglobin 11.4 g/dL (14.0-18.0) L Hematocrit 35.5 % (42-54) L Mean Corpuscular Volume 89.6 fL (79-99) Mean Corpuscular Hemoglobin 28.8 pg (27.0-33.0) Mean Corpuscular Hemoglobin Concent 32.1 g/dL (32.0-36.0) Red Cell Distribution Width 18.6 % (11.0-15.5) H Platelet Count 160 K/uL (130-400) Mean Platelet Volume 12.0 fL (7.5-10.5) H Immature Granulocyte % (Auto) 0.2 % (0-1) Neutrophils (%) (Auto) 80.5 % (40.0-77.0) H Lymphocytes (%) (Auto) 11.9 % (21.0-51.0) L Monocytes (%) (Auto) 6.4 % (3.0-13.0) Eosinophils (%) (Auto) 0.8 % (0.0-8.0) Basophils (%) (Auto) 0.2 % (0.0-5.0) Neutrophils # (Auto) 7.2 K/uL (1.8-7.7) Lymphocytes # (Auto) 1.1 K/uL (1.0-4.8) Monocytes # (Auto) 0.6 K/uL (0.1-1.0) Eosinophils # (Auto) 0.07 K/uL (0.00-0.70) Basophils # (Auto) 0.02 K/uL (0.00-0.20) Absolute Immature Granulocyte (auto 0.02 K/uL (0-1) Nucleated Red Blood Cells 0.0 % (0.0-0.19) Red Blood Cell Morphology See comments Sodium Level 140 mmol/L (136-145) Potassium Level 3.1 mmol/L (3.5-5.1) L Chloride Level 102 mmol/L (101-111) Carbon Dioxide Level 27 mmol/L (21-32) Blood Urea Nitrogen 20 mg/dL (7-18) H Creatinine 1.4 mg/dL (0.5-1.3) H Glomerular Filtration Rate Calc 49 mL/min (>90) Random Glucose 112 mg/dL (70-105) H Total Calcium 8.7 mg/dL (8.5-10.1) Total Bilirubin 3.2 mg/dL (0.2-1.0) H Aspartate Amino Transf (AST/SGOT) 21 U/L (10-37) Alanine Aminotransferase (ALT/SGPT) 20 U/L (12-78) Alkaline Phosphatase 175 U/L (50-136) H Troponin I High Sensitivity 84 ng/L (4-75) *H Total Protein 7.1 g/dL (6.0-8.3) Albumin 3.2 g/dL (3.5-5.0) L Lipase 40 U/L (16-77) B-Type Natriuretic Peptide 699 pg/mL (0-100) H Labs Reviewed?: Yes EKG Comment: EKG DONE 02/05/2024 AT 7:39 P.M. VENTRICULAR RATE 98 BEATS PER MINUTE QRS 113 MS QT 389 MS ATRIAL FIBRILLATION WITH A CONTROLLED RATE. ED Course ED Course Orders Procedure Category Date Status Time 12 Lead Ekg Tracing- EKG 02/05/24 Logged Technical 19:48 Urinalysis Profile LAB 02/05/24 Complete 19:50 Troponin I High LAB 02/05/24 Complete Sensitivity 20:00 Cbc With Differential LAB 02/05/24 Complete 20:00 Comprehensive LAB 02/05/24 Complete Metabolic Panel 20:00 Lipase LAB 02/05/24 Complete 20:00 Chest 1vw RAD 02/05/24 Resulted 20:01 Ct Abdomen/Pelvis W/O CT 02/05/24 Resulted Contrast 20:03 B-Type Natriuretic LAB 02/05/24 Complete Peptide 21:49 Troponin I High LAB 02/05/24 In Process Sensitivity 21:49 Arterial Blood Gas + RT 02/05/24 Transmitted 22:01 Drug Screen Urine LAB 02/05/24 In Process 22:03 Aspirin 81mg Chew Tab PHA 02/05/24 Verified (Aspirin 81mg Chew 23:00 Vital Signs Date Time Temp Pulse Resp B/P (MAP) Pulse Ox O2 Delivery O2 Flow Rate FiO2 02/05/24 20:16 98.8 102 22 136/86 94 Room Air* 0 21 02/05/24 19:20 110 20 139/92 98 Room Air 0 HEART Score Response (Comments) Value History: Moderate suspicion (+1) 1 EKG: Normal 0 Age: > 65yrs (+2) 2 Risk Factors: 3+ risk factors (+2) 2 Initial Troponin: 1-3x Normal Limit (+1) 1 HEART Score Risk: Mod Risk for MACE (4-6) Total 6 Medical Decision Making MDM MDM: DIFFERENTIAL DIAGNOSIS: ACUTE ABDOMINAL PAIN, ACUTE PANCREATITIS, NON STEMI. RATIONALE: TESTS CONSIDERED AND ORDERED SECONDARY TO SHARED DECISION MAKING INCLUDE: PREVIOUS OUTSIDE RECORDS REVIEWED: OLD ER VISITS. RISK OF COMPLICATION AND/OR MORBIDITY OR MORTALITY OF PATIENT MANAGEMENT: NONE MEDICATIONS-PER MEDICATION RECONCILIATION NEED FOR HOSPITALIZATION: PATIENT DOES NOT MEET CRITERIA FOR HOSPITALIZATION. NEED FOR EMERGENCY MAJOR/MINOR SURGERY: NO THERE ARE NO SOCIAL CONCERNS WITH THIS PATIENT. PRESCRIPTION DRUG MANAGEMENT PRESCRIPTIONS WILL INCLUDE SYMPTOMATIC CARE PATIENT'S PRIOR EXTERNAL MEDICAL RECORDS FROM OTHER ER VISITS WERE REVIEWED BY ME INDICATED. PRIOR TESTING AND RESULTS FROM PREVIOUS VISITS WERE REVIEWED. PRIOR TESTS WERE TAKEN INTO ACCOUNT WITH MEDICAL DECISION MAKING AND RESOURCE UTILIZATION, INDEPENDENT HISTORIAN/HISTORIANS WERE USED TO OBTAIN COMPLETE MEDICAL HISTORY. I INDEPENDENTLY INTERPRETED THE TEST THAT WERE PERFORMED, RESULTS WERE REVIEWED BY ME AND CONSIDERED FINDINGS ON RADIOLOGY IF ORDERED. MEDICAL MANAGEMENT AND EXAMINATION INTERPRETATION DISCUSSIONS WERE HAD BY ME WITH OTHER QUALIFIED HEALTHCARE PROFESSIONALS INDICATED FOR THE PATIENT'S CARE. DX & DISP Disposition: Inpatient Decision to Admit Date: Feb 05, 2024 Decision to Admit Time: 20:20 Departure Impression: Primary Impression: Elevated troponin Additional Impressions: Acute abdominal pain, History of atrial fibrillation, Acute hypokalemia Condition: Stable Referrals: JAG MCMAHAN MD (PCP) I have reviewed the case, and I agree with, Diagnosis and Plan DORIE YAÑEZ Feb 05, 2024 21:56
[2024-02-05 22:19] LABS: AMPHET/METH SCREEN,URINE NEGATIVE (NEGATIVE); BARBITURATE SCREEN, URINE NEGATIVE (NEGATIVE); BENZODIAZEPINES SCREEN,URINE NEGATIVE (NEGATIVE); CANNABINOID SCREEN,URINE NEGATIVE (NEGATIVE); COCAINE SCREEN,URINE NEGATIVE (NEGATIVE); OPIATE SCREEN,URINE NEGATIVE (NEGATIVE); PHENCYCLIDINE SCREEN,URINE NEGATIVE (NEGATIVE)
[2024-02-05 22:43] LABS: ABG BASE EXCESS -0.5 mmol/L (-2.0-3.0); ABG HCO3 22.2 mmol/L (21.0-28.0); ABG OXYGEN SATURATION 90.9 % (94.0-98.0); ABG PCO2 30 mmHg (35-48); ABG PH 7.482 (7.350-7.450); CARBON MONOXIDE 0.3 % (0.5-1.5); PO2, ARTERIAL BG 63.2 mmHg (83.0-108.0); VENT MODE, BG ROOMAIR (ROOM AIR)
[2024-02-05] MEDS ORDERED: ALLO100T PO (23:10)
[2024-02-05] MEDS ORDERED: LEVO50CA4 PO (23:10)
[2024-02-05] MEDS: PoTASSium BIcarbonate/CIT AC 25 MEQ TABLET.EFF PO ONE (23:16)
[2024-02-05] MEDS: ASPIRIN 81MG CHEW TAB PO ONE (23:16)
[2024-02-05] MEDS ORDERED: GABA-529 PO (23:26)
[2024-02-05] MEDS ORDERED: ROPI1TAB46 PO (23:26)
[2024-02-05] MEDS ORDERED: APIX2.5T PO (23:26)
[2024-02-05] MEDS ORDERED: POTA-200 PO (23:26)
[2024-02-05] MEDS ORDERED: DOXY100C5 PO (23:26)
[2024-02-05] MEDS ORDERED: ATOR10 PO (23:26)
[2024-02-05] MEDS ORDERED: BUME2TAB5 PO (23:26)
[2024-02-05] MEDS ORDERED: IBUP-2070 PO (23:26)
[2024-02-05] MEDS ORDERED: METO-391 PO (23:26)
[2024-02-05] MEDS ORDERED: NITR0.4T50 SL (23:26)
[2024-02-05] MEDS ORDERED: LORA2ORA5 PO ×2 (23:26)
--- NOTE | 2024-02-05 23:26 | HP ---
[facility] HISTORY [facility] PHYSICAL Date of Service: Feb 05, 2024 Time of Service: 23:26 PCP: Kevin Doyle HISTORY OF PRESENT ILLNESS: This is an 84-year-old male with bilateral hearing impairment a winter [place] from [place] with past medical history of hypertension, hyperlipidemia, hypothyroidism, CHF, atrial fibrillation on chronic anticoagulation, coronary artery disease with cardiac stent ,Pig valve and AICD who was brought by EMS to the ED for complaints of sudden onset of epigastric pain and left upper quadrant pain associated with shortness of breath.Patient described pain as sharp .Patient states he had an extensive cardiac history and concerned for hearet attack that he had in 2009 he said.Patient reports Seen and examined patient in the ED awake,alert and coherent appears uncomfortable continue to complain of abdominal pain and mild shortness of breath on 2 L nasal cannula,on palpation has tenderness to right upper quadrant on palpation.Patient also reports having 2 episodes of loose BM prior to ER arrival.Patient denies fever,chills,nausea,vomiting,chest pain,palpitation and cough. Vital signs upon arrival to ER heart rate 110, blood pressure 139/92 saturation 98%. Latest vital signs temperature 98.8, heart rate 102, respiration 22, blood pressure 136/86 saturation 94% on room air. Labs: Hemoglobin 11.4, hematocrit 35.5, platelet count 160. Potassium 3.1, BUN 20, creatinine 1.4, GFR 49 total bilirubin 3.2: Phosphatase 175 troponin 84 to 93 , BNP 699 albumin 3.2. Urine toxicology negative. Urinalysis is normal. ECG result revealed atrial fibrillation heart rate 98 with ventricular premature complex incomplete left bundle branch block probable left ventricular hypertrophy. CT abdomen and pelvis without contrast result revealed stable cardiomegaly. Cholelithiasis. Left renal exophytic cortical cyst with renal cortical thinning. Chest x-ray result revealed stable cardiomegaly. While in the ER patient received potassium 25 mEq p.o. and aspirin 324 mg p.o. we will admit patient for further medical management. REVIEW OF SYSTEMS CONSTITUTIONAL: Denies fevers, chills, or night sweats. No unintentional weight loss reported. NEUROLOGICAL: Denies headache, amaurosis fugax, motor weakness, sensory deficit, vertigo/spinning sensation, gait abnormalities, or tremors. ENT: No hearing loss, otalgia, otorrhea, rhinitis, rhinorrhea, hoarseness, or sore throat. CARDIOVASCULAR: Denies any exertional angina, dyspnea on exertion, orthopnea, paroxysmal nocturnal dyspnea, palpitations, life-threatening arrhythmias, claudication. PULMONARY: Positive shortness of breath Denies cough, phlegm/sputum, hemoptysis, pleuritic chest pain. SLEEP: Denies morning headaches, daytime somnolence or napping. Denies difficulty falling asleep, staying asleep, waking from sleep. Denies knowledge of snoring. GASTROINTESTINAL: Positive abdominal pain and diarrhea Denies any type of dysphagia to either liquids or solids. Denies nausea, vomiting, pyrosis, early satiety, constipation, or changes in stool consistency or caliber. Denies coffee-ground emesis, hematemesis, hematochezia, or melanotic stools. GENITOURINARY: Denies frequency, urgency, nocturia, hematuria or incontinence (Storage/Irritative symptoms.) Low urinary stream, straining to void, urinary intermittency or hesitancy, splitting of the voiding stream, terminal dribbling. ENDOCRINOLOGIC: Denies polyuria, polydipsia, polyphagia or heat/cold intoler ances. HEMATOLOGIC: Denies thrombophilia/previous clots, or coagulopathy/bleeding disorders. ONCOLOGIC: Denies personal history of malignancy. DERMATOLOGIC: Denies rashes or pruritus. PSYCHIATRIC: Denies any suicidal or homicidal ideation. Denies hallucinations. PAST MEDICAL HISTORY: [ hypertension, hyperlipidemia, hypothyroidism, CHF, atrial fibrillation on chronic anticoagulation, coronary artery disease with cardiac stent ,Pig valve and AICD ] PAST SURGICAL HISTORY: [ AICD, cardiac stent x4 2010, pig valve ] PAST SOCIAL HISTORY: [ Patient is a winter [place] he lives with his . Patient denies cigarette smoking and recreational drug use admits to drinking 2-3 glasses of wine per ] FAMILY HISTORY: [ Hypertension and cardiovascular disease] Coded Allergies: No Known Allergies (Verified Allergy, Unknown, 06/04/23) PHYSICAL EXAM GENERAL APPEARANCE: The patient is awake, alert, and oriented, in no acute cardiopulmonary distress. NEUROLOGICAL: Cranial nerves II-XII grossly intact. Motor is 5/5 in bilateral upper and lower extremities proximal to distal. No sensory deficits. HEENT: Face is symmetric. Pupils are equal and reactive. Extraocular movements are intact. NECK: Supple. No JVD. No thyromegaly. No submental, submandibular, pre- /postauricular, occipital or supraclavicular lymphadenopathy. CHEST: Normal chest expansion. No Telemetry. LUNGS: Absence of any rales, rhonchi or any wheezing. CARDIOVASCULAR: Regular. S1 and S2 normal. No appreciable rubs, murmurs or gallops. ABDOMEN: Positive tenderness around right upper quadrant Soft and nondistended. There is voluntary guarding, or rigidity. : Deferred. No Castañeda. EXTREMITIES: Trace edema to bilateral lower extremities SKIN: No skin breakdown. Vital Sign (Last 24 Hours) 02/05/24 20:16 Temp 98.8 Pulse 102 Resp 22 B/P (MAP) 136/86 Pulse Ox 94 O2 Delivery Room Air* O2 Flow Rate 0 FiO2 21 LABS: Laboratory: Test 02/05/24 22:41 02/05/24 21:20 02/05/24 20:11 02/05/24 19:51 Range/Units Blood Gas Specimen Type Arterial Arterial Blood pH 7.482 H 7.350-7.450 Arterial Blood Partial Pressure CO2 30 L 35-48 mmHg Arterial Blood Partial Pressure O2 63.2 L 83.0-108.0 mmHg Arterial Blood HCO3 22.2 21.0-28.0 mmol/L Arterial Blood Oxygen Saturation 90.9 L 94.0-98.0 % Arterial Blood Base Excess -0.5 -2.0-3.0 mmol/L Hemoglobin (Blood Gas) 12.0 L 13.5-17.5 g/dL Sodium (Blood Gas) 141 136-145 MMOL/L Bedside Potassium (Blood Gas) 3.2 L 3.4-4.5 MMOL/L Bedside Chloride (Blood Gas) 104 98-107 MMOL/L Bedside Glucose (Blood Gas) 97 H 65-95 MG/DL Bedside Ionized Calcium (Blood Gas) 1.10 L 1.15-1.33 MMOL/L Bedside Lactic Acid (Blood Gas) 2.26 H 0.36-0.75 MMOL/L Blood Gas Temperature 37.0 35.5-37.0 CELSIUS Blood Gas Vent Mode ROOMAIR ROOM AIR FiO2 21.0 % Blood Gas Specimen Comment RB Troponin I High Sensitivity 93 *H 4-75 ng/L B-Type Natriuretic Peptide 699 H 0-100 pg/mL Urine Opiates Screen NEGATIVE NEGATIVE Urine Barbiturates Screen NEGATIVE NEGATIVE Urine Phencyclidine Screen NEGATIVE NEGATIVE Urine Amphetamines Screen NEGATIVE NEGATIVE Urine Benzodiazepines Screen NEGATIVE NEGATIVE Urine Cocaine Screen NEGATIVE NEGATIVE Urine Marijuana (THC) Screen NEGATIVE NEGATIVE White Blood Count 9.0 4.8-10.8 K/uL Red Blood Count 3.96 L 4.50-6.20 MIL/uL Hemoglobin 11.4 L 14.0-18.0 g/dL Hematocrit 35.5 L 42-54 % Mean Corpuscular Volume 89.6 79-99 fL Mean Corpuscular Hemoglobin 28.8 27.0-33.0 pg Mean Corpuscular Hemoglobin Concent 32.1 32.0-36.0 g/dL Red Cell Distribution Width 18.6 H 11.0-15.5 % Platelet Count 160 130-400 K/uL Mean Platelet Volume 12.0 H 7.5-10.5 fL Immature Granulocyte % (Auto) 0.2 0-1 % Neutrophils (%) (Auto) 80.5 H 40.0-77.0 % Lymphocytes (%) (Auto) 11.9 L 21.0-51.0 % Monocytes (%) (Auto) 6.4 3.0-13.0 % Eosinophils (%) (Auto) 0.8 0.0-8.0 % Basophils (%) (Auto) 0.2 0.0-5.0 % Neutrophils # (Auto) 7.2 1.8-7.7 K/uL Lymphocytes # (Auto) 1.1 1.0-4.8 K/uL Monocytes # (Auto) 0.6 0.1-1.0 K/uL Eosinophils # (Auto) 0.07 0.00-0.70 K/uL Basophils # (Auto) 0.02 0.00-0.20 K/uL Absolute Immature Granulocyte (auto 0.02 0-1 K/uL Nucleated Red Blood Cells 0.0 0.0-0.19 % Red Blood Cell Morphology See comments Sodium Level 140 136-145 mmol/L Potassium Level 3.1 L 3.5-5.1 mmol/L Chloride Level 102 101-111 mmol/L Carbon Dioxide Level 27 21-32 mmol/L Blood Urea Nitrogen 20 H 7-18 mg/dL Creatinine 1.4 H 0.5-1.3 mg/dL Glomerular Filtration Rate Calc 49 >90 mL/min Random Glucose 112 H 70-105 mg/dL Total Calcium 8.7 8.5-10.1 mg/dL Total Bilirubin 3.2 H 0.2-1.0 mg/dL Aspartate Amino Transf (AST/SGOT) 21 10-37 U/L Alanine Aminotransferase (ALT/SGPT) 20 12-78 U/L Alkaline Phosphatase 175 H 50-136 U/L Total Protein 7.1 6.0-8.3 g/dL Albumin 3.2 L 3.5-5.0 g/dL Lipase 40 16-77 U/L Urine Color LIGHT-YELLOW YELLOW Urine Appearance CLEAR CLEAR Urine pH 6.5 5.0-8.0 Urine Specific [place] 1.008 1.001-1.031 Urine Protein NEGATIVE NEGATIVE mg/dL Urine Glucose (UA) NEGATIVE NEGATIVE mg/dL Urine Ketones NEGATIVE NEGATIVE mg/dL Urine Occult Blood NEGATIVE NEGATIVE Urine Nitrate NEGATIVE NEGATIVE Urine Bilirubin NEGATIVE NEGATIVE mg/dL Urine Urobilinogen 0.2 0.2-1.0 mg/dL Urine Leukocyte Esterase NEGATIVE NEGATIVE Vin/uL DIAGNOSTICS / RADIOLOGY: [ ] ASSESSMENT: Elevated troponin rule out ACS POA Acute on chronic CHF POA Acute respiratory failure POA Persistent atrial fibrillation POA Hypokalemia POA Intractable abdominal pain POA Suspected gastroenteritis POA Elevated liver enzymes POA Acute on chronic renal insufficiency POA Anemia POA Hypertension POA Hyperlipidemia POA Hypothyroidism POA Coronary artery disease with cardiac stent x4 POA History of aortic valve replacement POA AICD status POA PLAN: We will admit patient in PCCU We will keep patient nothing by mouth We will continue aspirin 81 mg p.o. daily We will start on Famotidine 20 mg IV daily for GI prophylaxis We will replace electrolytes as needed per protocol We will start on insulin sliding scale AC & HS with hypoglycemia protocol We will add prn medication for fever,pain,nausea and vomiting We will reconcile home meds once medlist available We will trend troponin q.6 x3 We will obtain echocardiogram We will seek Cardiology consultation We will seek pulmonology consultation May continue oxygen supplementation We will request labs in am Further orders to follow depending on above results Case discussed with attending physician and came up with above treatment and plan of care. ADVANCED CARE PLANNING 1. Which of the following were discussed? Hospice Care - No Therapeutic options - Yes Advance Directives - No Other discussions - 2. Discussed with who? Patient 3. Voluntary nature of this service was explained to the patient? Yes 4. Amount of time spent - __20 5. Reviewed by Physician? (if this service was performed by NPP) Yes Patient seen and examined by me. Agree with note by EYELET PUNCH OPERATOR SEE ADDITIONAL ORDERS PER CHART DISCUSSED WITH NURSING STAFF NORAH WHITE NURSING DIRECTOR Feb 05, 2024 23:26
[2024-02-06] VITALS (17 sets, daily range): BP systolic 105–123; BP diastolic 67–77; PULSE 63–95; RESP 16–20; TEMP 97.7–98.2; O2SAT 92–99
[2024-02-06] MEDS ORDERED: ondanSETRON 4MG INJ IV PRN
[2024-02-06] MEDS ORDERED: NITROGLYCERIN 0.4 MG SL TAB SL SCH
[2024-02-06] MEDS ORDERED: hydrALAZine 20MG/ML VIAL IV PRN
[2024-02-06] MEDS ORDERED: acetaMINOPHEN 325 MG TAB PO PRN ×2
[2024-02-06] MEDS: IpraTROPium/alBUTERol SULFATE 3 ML SOLUTION IH SCH (02:00)
[2024-02-06 05:09] LABS: BASOPHILS # (AUTO) 0.03 K/uL (0.00-0.20); BASOPHILS % (AUTO) 0.5 % (0.0-5.0); EOSINOPHILS # (AUTO) 0.06 K/uL (0.00-0.70); EOSINOPHILS % (AUTO) 1.1 % (0.0-8.0); IMMATURE GRANULOCYTE ABSOLUTE 0.02 K/uL (0-1); LYMPHOCYTES # (AUTO) 1.1 K/uL (1.0-4.8); LYMPHOCYTES % (AUTO) 19.4 % (21.0-51.0); MEAN CORPUSCULAR HEMOGLOBIN 28.6 pg (27.0-33.0); MEAN CORPUSCULAR HGB CONC 31.2 g/dL (32.0-36.0); MEAN CORPUSCULAR VOLUME 91.6 fL (79-99); MONOCYTES # (AUTO) 0.5 K/uL (0.1-1.0); MONOCYTES % (AUTO) 8.7 % (3.0-13.0); NEUTROPHILS # (AUTO) 3.9 K/uL (1.8-7.7); NEUTROPHILS % (AUTO) 69.9 % (40.0-77.0); PLATELET COUNT (AUTO) 129 K/uL (130-400); RED BLOOD CELL COUNT(AUTO) 3.71 MIL/uL (4.50-6.20); RED CELL DISTRIBUTION WIDTH 18.6 % (11.0-15.5); WHITE BLOOD COUNT (AUTO) 5.6 K/uL (4.8-10.8)
[2024-02-06 05:31] LABS: HEMOGLOBIN A1C 5.9 % (4.0-6.0)
[2024-02-06 05:37] LABS: ALBUMIN 2.9 g/dL (3.5-5.0); BILIRUBIN,TOTAL 3.4 mg/dL (0.2-1.0); CREATININE 1.4 mg/dL (0.5-1.3); MAGNESIUM 1.5 mg/dL (1.80-2.40); THYROID STIMULATING HORMONE 9.73 uIU/mL (0.36-3.74); TOTAL PROTEIN, SERUM 6.2 g/dL (6.0-8.3)
[2024-02-06 05:41] LABS: B-TYPE NATRIURETIC PEPTIDE 775 pg/mL (0-100)
[2024-02-06] MEDS: levoTHYROxine 50 MCG TABLET PO SCH (06:06)
[2024-02-06] MEDS: PoTASSium chloRIDE 10MEQ/100ML 100 ML IV PRN (06:15)
[2024-02-06 06:23] LABS: ERYTHROCYTE SEDIMENTATION RATE 22 MM/HR (0-20)
[2024-02-06] MEDS ORDERED: PoTASSium chloRIDE 20MEQ/100ML 100 ML IV PRN ×2 (06:30)
--- NOTE | 2024-02-06 06:53 | EKG ---
[facility] Test Date: 2024-02-05 Test Time: 19:39:44 Pat Name: MEGAN ODELL Department: [facility] Room: 223 1 Gender: M Electronic Assembler Group Leader: [id number] : 1940 Requested By: DORIE YAÑEZ Order Number: [id number] Reading MD: Desean Gama Measurements Intervals [place] Rate: 98 P: 0 MO: 0 QRS: -29 QRSD: 113 T: 58 QT: 389 QTc: 496 Interpretive Statements Atrial fibrillation Ventricular premature complex Incomplete left bundle branch block Probable left ventricular hypertrophy Compared to ECG 06/29/2023 10:54:55 Left bundle-branch block now present Intraventricular conduction delay no longer present Electronically Signed On 02-07-2024 18:33:27 HOSPITAL CARRIER by Desean Gama Please click the below link to view image of tracing.
[2024-02-06] MEDS: metRONIDazole 500MG/100ML BAG 100 ML IVPB SCH (06:54)
[2024-02-06] MEDS ORDERED: MAGNESIUM 2GM PREMIX 50ML 50 ML IV PRN (07:00)
[2024-02-06] MEDS ORDERED: alloPURInol 100 MG TABLET PO SCH (09:00)
[2024-02-06] MEDS ORDERED: PoTASSium chloRIDE 10MEQ SR 10 MEQ/TAB TAB.SR.24H PO SCH (09:00)
[2024-02-06] MEDS: metOPROLol sucCINATE 50 MG TAB.SR.24H PO SCH (09:05)
[2024-02-06] MEDS: BUMETANIDE 1 MG TAB PO SCH (09:06)
[2024-02-06] MEDS: ropiNIRole HCL 1 MG TABLET PO SCH (09:07)
[2024-02-06] MEDS: ASPIRIN 81 MG EC TAB PO SCH (09:12)
[2024-02-06] MEDS: GABApentin 100 MG CAPSULE PO SCH ×2 (09:13→22:11)
[2024-02-06] MEDS: FAMOTIDINE 20MG VIAL IV SCH (09:14)
[2024-02-06] MEDS: APIXaban 2.5 MG TABLET PO SCH (09:14)
--- NOTE | 2024-02-06 09:16 | HMCIMG ---
US ABDOMINAL COMPLETE HISTORY: Abdominal pain COMPARISON: None TECHNIQUE: Multiple transverse and longitudinal ultrasound images of the abdomen were obtained. FINDINGS: Abdominal aorta and inferior vena cava are unremarkable. The visualized portion of the pancreas is within normal limits. Liver measures 16.2 cm. Liver is echogenic consistent with liver parenchymal disease. Gallstones are seen in the distended gallbladder. Common duct measures 3 mm. No evidence of gallbladder wall thickening is seen. There is right renal cyst measuring 10 mm x 13 mm. There is left renal cyst measuring 2.4 cm x 3.3 cm. The study is limited due to overlying bowel gas. Both kidneys are seen. Right kidney measures 11.5 x 6.4 x 5.7 cm. Left kidney measures 10 x 5.2 x 5.9 cm. No hydronephrosis is seen of the both kidneys. Spleen measures 11.9 cm. The spleen is grossly unremarkable. IMPRESSION: 1. Gallstones in the distended gallbladder. No ductal dilatation is seen. 2. No hydronephrosis is seen. Bilateral renal cysts.
[2024-02-06] MEDS: LORazepam 0.5 MG TABLET PO PRN (09:35)
--- NOTE | 2024-02-06 11:22 | PN ---
[facility] PROGRESS NOTE Date of Service: Feb 06, 2024 Time of Service: 11:17 SUBJECTIVE: The patient has been seen and examined during my rounding, no acute events overnight, BP 114/70, afebrile, saturating normal on room air, he denied chest pain, shortness shortness for breath, no nausea, no vomiting, no abdominal discomfort. No family members at bedside during my visit. REVIEW OF SYSTEMS CONSTITUTIONAL: Denies fevers, chills, or night sweats. No unintentional weight loss reported. NEUROLOGICAL: Denies headache, amaurosis fugax, motor weakness, sensory deficit, vertigo/spinning sensation, gait abnormalities, or tremors. ENT: No hearing loss, otalgia, otorrhea, rhinitis, rhinorrhea, hoarseness, or sore throat. CARDIOVASCULAR: Denies any exertional angina, dyspnea on exertion, orthopnea, paroxysmal nocturnal dyspnea, palpitations, life-threatening arrhythmias, claudication. PULMONARY: Positive shortness of breath Denies cough, phlegm/sputum, hemoptysis, pleuritic chest pain. SLEEP: Denies morning headaches, daytime somnolence or napping. Denies difficulty falling asleep, staying asleep, waking from sleep. Denies knowledge of snoring. GASTROINTESTINAL: Positive abdominal pain and diarrhea Denies any type of dysphagia to either liquids or solids. Denies nausea, vomiting, pyrosis, early satiety, constipation, or changes in stool consistency or caliber. Denies coffee-ground emesis, hematemesis, hematochezia, or melanotic stools. GENITOURINARY: Denies frequency, urgency, nocturia, hematuria or incontinence (Storage/Irritative symptoms.) Low urinary stream, straining to void, urinary intermittency or hesitancy, splitting of the voiding stream, terminal dribbling. ENDOCRINOLOGIC: Denies polyuria, polydipsia, polyphagia or heat/cold intolerances. HEMATOLOGIC: Denies thrombophilia/previous clots, or coagulopathy/bleeding disorders. ONCOLOGIC: Denies personal history of malignancy. DERMATOLOGIC: Denies rashes or pruritus. PSYCHIATRIC: Denies any suicidal or homicidal ideation. Denies hallucinations. PHYSICAL EXAM GENERAL APPEARANCE: The patient is awake, alert, and oriented, in no acute cardiopulmonary distress. NEUROLOGICAL: Cranial nerves II-XII grossly intact. Motor is 5/5 in bilateral upper and lower extremities proximal to distal. No sensory deficits. HEENT: Face is symmetric. Pupils are equal and reactive. Extraocular movements are intact. NECK: Supple. No JVD. No thyromegaly. No submental, submandibular, pre- /postauricular, occipital or supraclavicular lymphadenopathy. CHEST: Normal chest expansion. No Telemetry. LUNGS: Absence of any rales, rhonchi or any wheezing. CARDIOVASCULAR: Regular. S1 and S2 normal. No appreciable rubs, murmurs or gallops. ABDOMEN: Positive tenderness around right upper quadrant Soft and nondistended. There is voluntary guarding, or rigidity. : Deferred. No Castañeda. EXTREMITIES: Trace edema to bilateral lower extremities SKIN: No skin breakdown. Vital Signs (last 8hr) Date Time Temp Pulse Resp B/P (MAP) Pulse Ox O2 Delivery O2 Flow Rate FiO2 02/06/24 09:43 95 20 N/A Room Air 21 02/06/24 09:40 95 18 02/06/24 07:38 97.9 63 18 114/70 96 Nasal Cannula 2.0 02/06/24 06:17 83 18 N/Cannula Low lpm 2.0 28 02/06/24 06:15 86 18 02/06/24 04:30 98.2 88 18 123/77 96 Nasal Cannula 02/06/24 04:15 96 Nasal Cannula* 2 28 02/06/24 04:01 91 18 125/84 97 Nasal Cannula* 2 28 LABS: Laboratory: Test 02/06/24 04:45 02/05/24 22:41 02/05/24 21:20 02/05/24 20:11 Range/Units White Blood Count 5.6 # 4.8-10.8 K/uL Red Blood Count 3.71 L 4.50-6.20 MIL/uL Hemoglobin 10.6 L 14.0-18.0 g/dL Hematocrit 34.0 L 42-54 % Mean Corpuscular Volume 91.6 79-99 fL Mean Corpuscular Hemoglobin 28.6 27.0-33.0 pg Mean Corpuscular Hemoglobin Concent 31.2 L 32.0-36.0 g/dL Red Cell Distribution Width 18.6 H 11.0-15.5 % Platelet Count 129 L 130-400 K/uL Mean Platelet Volume 11.9 H 7.5-10.5 fL Immature Granulocyte % (Auto) 0.4 0-1 % Neutrophils (%) (Auto) 69.9 40.0-77.0 % Lymphocytes (%) (Auto) 19.4 L 21.0-51.0 % Monocytes (%) (Auto) 8.7 3.0-13.0 % Eosinophils (%) (Auto) 1.1 0.0-8.0 % Basophils (%) (Auto) 0.5 0.0-5.0 % Neutrophils # (Auto) 3.9 1.8-7.7 K/uL Lymphocytes # (Auto) 1.1 1.0-4.8 K/uL Monocytes # (Auto) 0.5 0.1-1.0 K/uL Eosinophils # (Auto) 0.06 0.00-0.70 K/uL Basophils # (Auto) 0.03 0.00-0.20 K/uL Absolute Immature Granulocyte (auto 0.02 0-1 K/uL Nucleated Red Blood Cells 0.0 0.0-0.19 % Erythrocyte Sedimentation Rate 22 H 0-20 MM/HR Sodium Level 141 136-145 mmol/L Potassium Level 3.0 *L 3.5-5.1 mmol/L Chloride Level 103 101-111 mmol/L Carbon Dioxide Level 28 21-32 mmol/L Blood Urea Nitrogen 20 H 7-18 mg/dL Creatinine 1.4 H 0.5-1.3 mg/dL Glomerular Filtration Rate Calc 49 >90 mL/min Random Glucose 107 H 70-105 mg/dL Hemoglobin A1c 5.9 4.0-6.0 % Estimated Average Glucose (eAG) 123 70-126 mg/dL Total Calcium 8.4 L 8.5-10.1 mg/dL Magnesium Level 1.50 L 1.80-2.40 mg/dL Total Bilirubin 3.4 H 0.2-1.0 mg/dL Aspartate Amino Transf (AST/SGOT) 22 10-37 U/L Alanine Aminotransferase (ALT/SGPT) 16 12-78 U/L Alkaline Phosphatase 157 H 50-136 U/L Troponin I High Sensitivity 107 *H 4-75 ng/L B-Type Natriuretic Peptide 775 H 0-100 pg/mL Total Protein 6.2 6.0-8.3 g/dL Albumin 2.9 L 3.5-5.0 g/dL Triglycerides Level 61 30-200 mg/dL Cholesterol Level 78 <200 mg/dL LDL Cholesterol 41 0-99 mg/dL HDL Cholesterol 37 29-71 mg/dL Thyroid Stimulating Hormone (TSH) 9.73 H 0.36-3.74 uIU/mL Blood Gas Specimen Type Arterial Arterial Blood pH 7.482 H 7.350-7.450 Arterial Blood Partial Pressure CO2 30 L 35-48 mmHg Arterial Blood Partial Pressure O2 63.2 L 83.0-108.0 mmHg Arterial Blood HCO3 22.2 21.0-28.0 mmol/L Arterial Blood Oxygen Saturation 90.9 L 94.0-98.0 % Arterial Blood Base Excess -0.5 -2.0-3.0 mmol/L Hemoglobin (Blood Gas) 12.0 L 13.5-17.5 g/dL Sodium (Blood Gas) 141 136-145 MMOL/L Bedside Potassium (Blood Gas) 3.2 L 3.4-4.5 MMOL/L Bedside Chloride (Blood Gas) 104 98-107 MMOL/L Bedside Glucose (Blood Gas) 97 H 65-95 MG/DL Bedside Ionized Calcium (Blood Gas) 1.10 L 1.15-1.33 MMOL/L Bedside Lactic Acid (Blood Gas) 2.26 H 0.36-0.75 MMOL/L Blood Gas Temperature 37.0 35.5-37.0 CELSIUS Blood Gas Vent Mode ROOMAIR ROOM AIR FiO2 21.0 % Blood Gas Specimen Comment KIM PELAYO Urine Opiates Screen NEGATIVE NEGATIVE Urine Barbiturates Screen NEGATIVE NEGATIVE Urine Phencyclidine Screen NEGATIVE NEGATIVE Urine Amphetamines Screen NEGATIVE NEGATIVE Urine Benzodiazepines Screen NEGATIVE NEGATIVE Urine Cocaine Screen NEGATIVE NEGATIVE Urine Marijuana (THC) Screen NEGATIVE NEGATIVE Red Blood Cell Morphology See comments Lipase 40 16-77 U/L Test 02/05/24 19:51 Range/Units Urine Color LIGHT-YELLOW YELLOW Urine Appearance CLEAR CLEAR Urine pH 6.5 5.0-8.0 Urine Specific [place] 1.008 1.001-1.031 Urine Protein NEGATIVE NEGATIVE mg/dL Urine Glucose (UA) NEGATIVE NEGATIVE mg/dL Urine Ketones NEGATIVE NEGATIVE mg/dL Urine Occult Blood NEGATIVE NEGATIVE Urine Nitrate NEGATIVE NEGATIVE Urine Bilirubin NEGATIVE NEGATIVE mg/dL Urine Urobilinogen 0.2 0.2-1.0 mg/dL Urine Leukocyte Esterase NEGATIVE NEGATIVE Vin/uL Current Medications Medications (Trade) Dose Ordered Sig/Trisha Route PRN Reason Start Time Stop Time Status Last Admin Dose Admin Acetaminophen (TYLenol 325MG TAB) 650 mg Q4H PRN PO MILD PAIN (1-3) 02/06/24 00:00 03/07/24 00:00 Acetaminophen (TYLenol 325MG TAB) 650 mg Q6H PRN PO TEMPERATURE GREATER THAN 101.5 02/06/24 00:00 03/07/24 00:00 Albuterol (DUOneb) 1 udvial [id number] IH 02/06/24 02:00 03/07/24 01:59 02/06/24 09:39 1 UDVIAL Allopurinol (ZYLOprim 100MG) 200 mg DAILY PO 02/06/24 09:00 03/07/24 08:59 Hold Apixaban (EliquIS 2.5 mg) 2.5 mg BID PO 02/06/24 09:00 03/07/24 08:59 02/06/24 09:14 2.5 MG Aspirin (Aspirin 81mg Ec Tab) 81 mg DAILY PO 02/06/24 09:00 03/07/24 08:59 02/06/24 09:12 81 MG Atorvastatin Calcium (LIPItor 20MG) 20 mg HS PO 02/06/24 21:00 03/07/24 20:59 Bumetanide (Bumex 1mg Tab) 2 mg DAILY PO 02/06/24 09:00 03/07/24 08:59 02/06/24 09:06 2 MG Famotidine (Pepcid 20mg Vial) 20 mg DAILY IV 02/06/24 09:00 03/07/24 08:59 02/06/24 09:14 20 MG Gabapentin (NEURontin 100 mg CAP) 300 mg DAILY PO 02/06/24 09:00 03/07/24 08:59 02/06/24 09:13 300 MG Hydralazine HCl (APRESOLine 20MG INJ) 10 mg Q6H PRN IV For:SBP above 160;DBP above 90 02/06/24 00:00 03/07/24 00:00 Levothyroxine Sodium (SYNTHroid 50MCG TAB) 50 mcg SYN PO 02/06/24 06:30 03/07/24 06:29 Lorazepam (AtiVAN) 0.5 mg Q6H PRN PO ANXIETY/AGITATION 02/06/24 00:30 12/6/24 00:29 02/06/24 09:35 0.5 MG Magnesium Sulfate 50 ml @ 0 mls/hr PROTOCOL PRN IV OTHER [SEE ORDER COMMENTS] 02/06/24 00:00 03/07/24 00:00 Magnesium Sulfate 50 ml @ 0 mls/hr PROTOCOL PRN IV LOW MAGNESIUM 02/06/24 07:00 03/07/24 06:59 Metoprolol Succinate (TopROL XL) 50 mg DAILY PO 02/06/24 09:00 03/07/24 08:59 02/06/24 09:05 50 MG Metronidazole/ Sodium Chloride 100 ml @ 100 mls/hr Q8H6 IVPB 02/06/24 06:00 02/16/24 05:59 02/06/24 06:54 100 MLS/HR Nitroglycerin (Nitrostat) 0.4 mg AD SL 02/06/24 00:00 03/07/24 00:00 Ondansetron HCl (zoFRAN 4MG INJ) 4 mg Q6H PRN IV NAUSEA/VOMITING 02/06/24 00:00 03/07/24 00:00 Potassium Chloride 100 ml @ 50 mls/hr AD PRN IV POTASSIUM PROTOCOL 02/06/24 06:30 02/06/24 06:35 DC Potassium Chloride 100 ml @ 100 mls/hr AD PRN IV POTASSIUM PROTOCOL 02/06/24 00:00 02/06/24 06:34 DC 02/06/24 06:15 100 MLS/HR Potassium Chloride 100 ml @ 100 mls/hr AD PRN IV POTASSIUM PROTOCOL 02/06/24 06:30 03/07/24 06:29 Potassium Chloride (K-Dur 10meq Sr Tab) 10 meq DAILY PO 02/06/24 09:00 02/06/24 06:34 DC Potassium Chloride (K-Dur/Klor-Con 20meq) 20 meq AD PRN PO POTASSIUM PROTOCOL 02/06/24 06:30 03/07/24 06:29 Potassium Chloride (KCl 10% Elixir 20meq/15ml) 20 meq AD PRN PO POTASSIUM PROTOCOL 02/06/24 06:30 03/07/24 06:29 Ropinirole HCl (REquip) 1 mg BID PO 02/06/24 09:00 03/07/24 08:59 02/06/24 09:07 1 MG DIAGNOSTICS / RADIOLOGY: [ ] CHEST 1VW CLINICAL HISTORY: PAIN COMPARISON: 06/29/2023 TECHNIQUE: Single view of the chest was obtained. FINDINGS: Lungs are clear. The cardiac size is enlarged but stable. Again demonstrates changes of prior median sternotomy. The pacemaker is unchanged. 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 daily Continue on Famotidine 20 mg IV daily for GI prophylaxis We will replace electrolytes as needed per protocol Continue on insulin sliding scale AC & HS with hypoglycemia protocol Continue prn medication for fever,pain,nausea and vomiting Reconcile home meds Replace electrolytes IV per protocol GI and DVT prophylaxis Further orders to follow depending on above results Plan of action discussed, all questions answered, agreed and understood the information provided Total time spent greater than 30 minutes LAURA GRAJEDA MD Feb 06, 2024 11:22
--- NOTE | 2024-02-06 11:29 | CONS ---
[facility] CONSULTATION NOTE Date Patient Seen: Feb 06, 2024 Time of Visit: 11:29 Supervising Physician: Keith Smith MD Reason for Consultation: Acute resp failure Primary Care Physician: Kevin Doyle MD Outpatient Specialists: Inpatient Consults: Dr Desean Gama MD, LUTHER Carrasco Attending physician: Daniel Chang MD PROBLEM LIST: Acute hypoxic respiratory failure, POA Acute metabolic encephalopathy, POA Elevated troponin, POA Acute on chronic CHF POA Suspected CAP, POA Chronic atrial fibrillation on chronic anticoagulation with Eliquis, POA Hypokalemia POA Intractable abdominal pain POA Gallstones in the distended gallbladder, POA on ultrasound 02/06/24 Bilateral renal cysts, POA 02/06/24 Cardiomegaly, POA Elevated liver enzymes POA Liver parenchymal disease, POA ALVINO on CKD, POA Normocytic Anemia POA Thrombocytopenia, not POA Hypertension POA Hyperlipidemia POA Hypothyroidism POA CAD s/p CABG in 2009, with bioprosthetic aortic valve replacement History of aortic valve replacement POA s/p Medtronic [place] XT NSR MRI [id number] VVIR pacemaker implantation in [place], [place] S/p Pat[place] Vein ablation to the [facility] on 04/19/2018 Days ETOH 2-3 one glasses today Former Occasional smoker for 10 years HPI: This is a winteran, 84-year-old male with a pertinent history for hypertension, hyperlipidemia, hypothyroidism, CHF, atrial fibrillation on chronic anticoagulation, CAD status post CABG, in 2009 with bioprosthetic aortic valve replacement, who is brought in on 02/05/24 for epigastric pain that radiated to left upper quadrant with the associated shortness of breath. Patient was admitted by the [facility] team to PCCU and we were consulted for acute respiratory failure. On assessment patient was awake alert but confused. As per who was at be dside that is not his baseline progressively been confused prior to admission. Patient is afebrile heart rate in the 80s respiratory 18 unlabored saturating 95% with 2 L via nasal cannula hemodynamically stable with a blood pressure 105/71. On laboratory today patient has been H&H slightly decreased from yesterday from 11.4/35.5 to 10.6/34 platelet count is decreased from yesterday from 160-129 today. Neutrophils have improved from yesterday which were 80.5 today 69.9. Sodium 140 potassium is 3.0 BUN is 20 creatinine 1.6 GFR of 42 slightly decreased from yesterday total bili 4.1 AST 26 ALT 15 alkaline phosphatase 165, BNP 775, albumin 3.1. TSH is 9.73. Chest x-ray from 02/05/24 shows stable cardiomegaly, increased pulmonary vascular congestion and pacemaker in place. On CT abdomen and pelvis without contrast shows stable cardiomegaly cholelithiasis left renal exophytic cortisol cyst with renal cortical thinning. On ultrasound of the abdomen gallstones and distended gallbladder no ductal dilation is seen no hydronephrosis bilateral renal cyst. Liver measures 16.2 cm liver is echogenic consistent with liver parenchyma disease. General surgery has been consulted for distended gallbladder. Cardiology following for elevated troponin and CHF. PAST MEDICAL HX: winter from [place] Hypertension Hyperlipidemia Chronic atrial fibrillation on chronic anticoagulation with Eliquis Combined systolic and diastolic heart failure, 2D echo in 05/2022 with an EF of 40-45% PAST SURGICAL HX: CAD status post CABG in 2009 Bioprosthetic aortic valve replacement in 2009, s/p Medtronic [id number] [place] XT SR MRI pacemaker implantation on 12/02/2021 in [place], [place], SOCIAL HISTORY: No tobacco, Drinks 2-3 one glasses today No illicit drug use Coded Allergies: No Known Allergies (Verified Allergy, Unknown, 06/04/23) REVIEW OF SYSTEMS: Unable to obtain due to patient confused. PHYSICAL EXAM: GENERAL: alert, awake generalized weakness oriented to name HEENT: EOMI, Sclera non icteric, moist mucosa NECK: Supple, no JVD, trachea midline LUNGS: Diminished breath sounds bilaterally. wheezes HEART: Regular rate and rhythm. Normal S1 and S2, without murmurs ABD: Abdomen soft, nontender. Bowel sounds present EXT: No clubbing cyanosis or edema NEURO: Alert and oriented to person, follows commands Vital Signs (last 8hr) Date Time Temp Pulse Resp B/P (MAP) Pulse Ox O2 Delivery O2 Flow Rate FiO2 02/06/24 09:43 95 20 N/A Room Air 21 02/06/24 09:40 95 18 02/06/24 07:38 97.9 63 18 114/70 96 Nasal Cannula 2.0 02/06/24 06:17 83 18 N/Cannula Low lpm 2.0 28 02/06/24 06:15 86 18 02/06/24 04:30 98.2 88 18 123/77 96 Nasal Cannula 02/06/24 04:15 96 Nasal Cannula* 2 28 02/06/24 04:01 91 18 125/84 97 Nasal Cannula* 2 28 LABS: Hematology Labs: Test 02/06/24 04:45 02/05/24 20:11 Range/Units White Blood Count 5.6 # 4.8-10.8 K/uL Red Blood Count 3.71 L 4.50-6.20 MIL/uL Hemoglobin 10.6 L 14.0-18.0 g/dL Hematocrit 34.0 L 42-54 % Mean Corpuscular Volume 91.6 79-99 fL Mean Corpuscular Hemoglobin 28.6 27.0-33.0 pg Mean Corpuscular Hemoglobin Concent 31.2 L 32.0-36.0 g/dL Red Cell Distribution Width 18.6 H 11.0-15.5 % Platelet Count 129 L 130-400 K/uL Mean Platelet Volume 11.9 H 7.5-10.5 fL Immature Granulocyte % (Auto) 0.4 0-1 % Neutrophils (%) (Auto) 69.9 40.0-77.0 % Lymphocytes (%) (Auto) 19.4 L 21.0-51.0 % Monocytes (%) (Auto) 8.7 3.0-13.0 % Eosinophils (%) (Auto) 1.1 0.0-8.0 % Basophils (%) (Auto) 0.5 0.0-5.0 % Neutrophils # (Auto) 3.9 1.8-7.7 K/uL Lymphocytes # (Auto) 1.1 1.0-4.8 K/uL Monocytes # (Auto) 0.5 0.1-1.0 K/uL Eosinophils # (Auto) 0.06 0.00-0.70 K/uL Basophils # (Auto) 0.03 0.00-0.20 K/uL Absolute Immature Granulocyte (auto 0.02 0-1 K/uL Nucleated Red Blood Cells 0.0 0.0-0.19 % Erythrocyte Sedimentation Rate 22 H 0-20 MM/HR Red Blood Cell Morphology See comments Chemistry Labs: Test 02/06/24 04:45 02/05/24 20:11 Range/Units Sodium Level 141 136-145 mmol/L Potassium Level 3.0 *L 3.5-5.1 mmol/L Chloride Level 103 101-111 mmol/L Carbon Dioxide Level 28 21-32 mmol/L Blood Urea Nitrogen 20 H 7-18 mg/dL Creatinine 1.4 H 0.5-1.3 mg/dL Glomerular Filtration Rate Calc 49 >90 mL/min Random Glucose 107 H 70-105 mg/dL Hemoglobin A1c 5.9 4.0-6.0 % Estimated Average Glucose (eAG) 123 70-126 mg/dL Total Calcium 8.4 L 8.5-10.1 mg/dL Magnesium Level 1.50 L 1.80-2.40 mg/dL Total Bilirubin 3.4 H 0.2-1.0 mg/dL Aspartate Amino Transf (AST/SGOT) 22 10-37 U/L Alanine Aminotransferase (ALT/SGPT) 16 12-78 U/L Alkaline Phosphatase 157 H 50-136 U/L Troponin I High Sensitivity 107 *H 4-75 ng/L B-Type Natriuretic Peptide 775 H 0-100 pg/mL Total Protein 6.2 6.0-8.3 g/dL Albumin 2.9 L 3.5-5.0 g/dL Triglycerides Level 61 30-200 mg/dL Cholesterol Level 78 <200 mg/dL LDL Cholesterol 41 0-99 mg/dL HDL Cholesterol 37 29-71 mg/dL Thyroid Stimulating Hormone (TSH) 9.73 H 0.36-3.74 uIU/mL Lipase 40 16-77 U/L DIAGNOSTICS / RADIOLOGY RESULTS: Signed PATIENT: MEGAN ODELL MR#: [id number] : 1940 SEX: M AGE: 84 LOCATION: [facility] ORDER 01 STATUS: REG REPORT#: [id number] SERVICE 00 REASON: PAIN ORDERING PHYSICIAN: DORIE YAÑEZ PROCEDURE: CXR1VW - CHEST 1VW CHEST 1VW CLINICAL HISTORY: PAIN COMPARISON: 06/29/2023 TECHNIQUE: Single view of the chest was obtained. FINDINGS: Lungs are clear. The cardiac size is enlarged but stable. Again demonstrates changes of prior median sternotomy. The pacemaker is unchanged. IMPRESSION: Stable cardiomegaly DICTATED BY: AXEL NGUYEN DO DATE: 02/05/242050 ELECTRONICALLY SIGNED BY: AXEL NGUYEN DO DATE: 02/05/242053 PATIENT: MEGAN ODELL MR#: [id number] : 1940 SEX: M AGE: 84 LOCATION: [facility] ORDER 02 STATUS: REG ER REPORT#: [id number] SERVICE 02 REASON: PAIN ORDERING PHYSICIAN: DORIE YAÑEZ PROCEDURE: ABD PEL WO - CT ABDOMEN/PELVIS W/O CONTRAST CT ABDOMEN/PELVIS W/O CONTRAST CLINICAL HISTORY: PAIN COMPARISON: 04/13/2016 TECHNIQUE: Sequential axial images of abdomen and pelvis without contrast and with sagittal and coronal reconstructions. CT was performed with one or more of the following dose reduction techniques: automated exposure control, adjustment of the mA and/or kV according to patient size, or use of iterative reconstruction technique FINDINGS: There is mild atelectasis lung bases. There is demonstrated is cardiomegaly and artifact from pacemaker wires. The liver is and spleen are unremarkable. There are multiple gallbladder calculi. The pancreas adrenal glands and right kidney and bladder are unremarkable. Note is made of a stable exophytic left renal cortical cyst and left renal cortical thinning. There is no identified bowel obstruction. There is no bulky abdominal or retroperitoneal lymphadenopathy. There is no free air or free fluid. The appendix is not identified but there are no findings to suggest acute appendicitis. The prostate gland appears unremarkable. There is stable advanced degenerative changes of the spine. There is also very mild calcified atherosclerotic vascular disease of the aorta without aneurysm dilatation. IMPRESSION: Stable cardiomegaly. Cholelithiasis. Left renal exophytic cortical cyst with renal cortical thinning. DICTATED BY: AXEL NGUYEN DO DATE: 02/05/242058 ELECTRONICALLY SIGNED BY: AXEL NGUYEN DO DATE: 02/05/242107 Signed PATIENT: MEGAN ODELL MR#: [id number] : 1940 SEX: M AGE: 84 LOCATION: [facility] ORDER 9 STATUS: ADM IN REPORT#: [id number] SERVICE 0529 REASON: abdominal pain ORDERING PHYSICIAN: NORAH WHITE PROCEDURE: ABDOMEN - US ABDOMINAL COMPLETE US ABDOMINAL COMPLETE HISTORY: Abdominal pain COMPARISON: None TECHNIQUE: Multiple transverse and longitudinal ultrasound images of the abdomen were obtained. FINDINGS: Abdominal aorta and inferior vena cava are unremarkable. The visualized portion of the pancreas is within normal limits. Liver measures 16.2 cm. Liver is echogenic consistent with liver parenchymal disease. Gallstones are seen in the distended gallbladder. Common duct measures 3 mm. No evidence of gallbladder wall thickening is seen. There is right renal cyst measuring 10 mm x 13 mm. There is left renal cyst measuring 2.4 cm x 3.3 cm. The study is limited due to overlying bowel gas. Both kidneys are seen. Right kidney measures 11.5 x 6.4 x 5.7 cm. Left kidney measures 10 x 5.2 x 5.9 cm. No hydronephrosis is seen of the both kidneys. Spleen measures 11.9 cm. The spleen is grossly unremarkable. IMPRESSION: 1. Gallstones in the distended gallbladder. No ductal dilatation is seen. 2. No hydronephrosis is seen. Bilateral renal cysts. DICTATED BY: VISHNU ROBLEDO MD DATE: 02/06/24908 ELECTRONICALLY SIGNED BY: VISHNU ROBLEDO MD DATE: 02/06/24915 PLAN Telemetry monitoring CBC, CMP BNP in a.m. Monitor electrolytes and replace accordingly Supplement O2 as needed to maintain saturations above 92% ABG as needed for symptoms of respiratory failure Chest x-ray in a.m. Strict I&O and daily weights Hydralazine p.r.n. for hypertension Continue with Bumex 2 mg p.o. b.i.d. Pending 2D echo reading Fluid restriction of 1.5 L a day Continue with aspirin, Eliquis Statin therapy Respiratory culture Influenza and COVID-19 swabs NEURO: Minimize central acting medications as possible. Maintain fall precautions, adequate lighting during the day PULMONARY: Supplemental 02 as needed. Maintain aspiration precautions at all times CARDIOVASCULAR: Follow hemodynamics. Vital signs per facility protocol GI & NUTRITION: Continue with nutritional support. Continue stool softeners and laxatives as needed. KIDNEYS & ELECTROLYTES: Strict monitoring of intake, output and overall fluid balance. Avoid nephrotoxic medications to the extent possible. Medications to be dosed according to renal function. Monitor electrolytes and replace as needed ENDOCRINE: Maintain blood glucose between 100-180 at all times. Hypoglycemia protocol in place INFECTIOUS DISEASE: Trend temperature, WBC and procalcitonin level Follow cultures, deescalate antibiotics as soon as possible. Panculture if new onset fever ONCOLOGY/HEMATOLOGY/COAGULATION: Monitor for s/s of bleeding Monitor hemoglobin, coagulation studies as needed SKIN: Pressure ulcer prevention per facility protocol Specialty mattress ORTHO/REHAB: Continue PT/OT Prophylaxis: Continue GI and DVT prophylaxis Code Status: Full Resuscitation Disposition: TBD Other: Total patient care time exceeds 35 minutes excluding all procedures. CRISTIN LUNA [facility] Feb 06, 2024 11:29
[2024-02-06] MEDS: PoTASSium chl 10% ELIXIR 20MEQ 20 MEQ/15 ML UDCUP PO PRN (15:10)
[2024-02-06] MEDS: DOXYCYCLINE 100MG+NS 250ML 250 ML IV SCH (15:11)
[2024-02-06] MEDS: ZOSYN 3.375GM +NS 50ML IV SCH (15:11)
[2024-02-06] MEDS: MAGNESIUM 2GM PREMIX 50ML 50 ML IV PRN (15:11)
[2024-02-06 16:41] LABS: ALBUMIN 3.1 g/dL (3.5-5.0); BILIRUBIN,TOTAL 4.1 mg/dL (0.2-1.0); CREATININE 1.6 mg/dL (0.5-1.3); TOTAL PROTEIN, SERUM 6.8 g/dL (6.0-8.3)
--- NOTE | 2024-02-06 17:07 | CONS ---
[facility] CARDIOLOGY CONSULTATION REPORT Cardiology consultation note dictated for Per Sifuentes MD Primary Bleach Boiler Packer: Desean Gama MD Date Patient Seen: Feb 06, 2024 Requesting Physician: ANNMARIE Arteaga Reason for Consultation: Elevated Troponin, CHF History of Present Illness: This is an 84[facility] [place] with a past medical history of hypertension, hyperlipidemia, chronic atrial fibrillation on chronic anticoagulation with Eliquis, combined systolic and diastolic heart failure, CAD s/p CABG in 2009, with bioprosthetic aortic valve replacement, s/p Medtronic [id number] Luda XT SR MRI pacemaker implantation on 12/02/2021 in [place], [place], 2D echo in 05/2022 with an EF of 40-45% with peak gradient of 15mmHg, Lexiscan stress test in 07/2022 demonstrated a moderate size area of mild mid and distal anterior wall ischemia with an EF 49%, severe bilateral venous insuf ficiency, May-Thurner syndrome, RLS, hypothyroidism, Crohn's disease, hard of hearing, and dementia who presented to the ED with complaints of shortness of breath and epigastric pain. Abdominal ultrasound demonstrated gallstones in the distended gallbladder. CT of the abdomen revealed cholelithiasis. The patient is pending a HIDA scan and a general surgery consult. Cardiology was consulted for elevated troponin and CHF exacerbation. The patient is confused, the at bedside also has memory problems but was able to aid in HPI in addition to medical records. The was able to state the patient began to have abdominal pain, shortness of breath and loose stools yesterday. Troponin 84, 93, 108, 107, and 105 which are mildly elevated and in a flat pattern. EKG on admission demonstrated atrial fibrillation with a heart rate of 98bpm with a PVC and is ventricular pacing, without signs of ischemia. The patient denies chest pain, chest pressure, palpitations, dizziness, nausea, or vomiting. The patient does admit to intermittent shortness of breath and right upper abdominal quadrant pain upon palpation. BNP OF 775. Chest x-ray with cardiomegaly. Upon assessment, no signs of JVD. He is short of breath with movement. Past Medical History: As per HPI and summarized Past Surgical History: s/p Medtronic Luda XT NSR MRI [id number] VVIR pacemaker implantation in [place], [place] CAD s/p CABG in 2009, with bioprosthetic aortic valve replacement S/p Patito Vein ablation to the SV on 04/19/2018 Family History: Noncontributory Social History: The patient lives with his . Habits: The denies that the patient uses alcohol, tobacco, or illicit drugs. Home Meds: Current Meds: Current Medications Medications Dose Ordered Sig/Trisha Start Time Stop Time Status Last Admin Allopurinol 200 mg DAILY 02/06/24 09:00 03/07/24 08:59 Hold Apixaban 2.5 mg BID 02/06/24 09:00 03/07/24 08:59 02/06/24 09:14 Atorvastatin Calcium 20 mg HS 02/06/24 21:00 03/07/24 20:59 Gabapentin 300 mg DAILY 02/06/24 09:00 03/07/24 08:59 02/06/24 09:13 Metoprolol Succinate 50 mg DAILY 02/06/24 09:00 03/07/24 08:59 02/06/24 09:05 Nitroglycerin 0.4 mg AD 02/06/24 00:00 03/07/24 00:00 Ropinirole HCl 1 mg BID 02/06/24 09:00 03/07/24 08:59 02/06/24 09:07 Bumetanide 2 mg DAILY 02/06/24 09:00 03/07/24 08:59 02/06/24 09:06 Levothyroxine Sodium 50 mcg SYN 02/06/24 06:30 03/07/24 06:29 Lorazepam 0.5 mg Q6H PRN 02/06/24 00:30 03/07/24 00:29 02/06/24 09:35 Acetaminophen 650 mg Q6H PRN 02/06/24 00:00 03/07/24 00:00 Acetaminophen 650 mg Q4H PRN 02/06/24 00:00 03/07/24 00:00 Ondansetron HCl 4 mg Q6H PRN 02/06/24 00:00 03/07/24 00:00 Albuterol 1 udvial [id number] 02/06/24 02:00 03/07/24 01:59 02/06/24 13:45 Hydralazine HCl 10 mg Q6H PRN 02/06/24 00:00 03/07/24 00:00 Famotidine 20 mg DAILY 02/06/24 09:00 03/07/24 08:59 02/06/24 09:14 Aspirin 81 mg DAILY 02/06/24 09:00 03/07/24 08:59 02/06/24 09:12 Magnesium Sulfate 50 ml @ 0 mls/hr PROTOCOL PRN 02/06/24 00:00 03/07/24 00:00 02/06/24 15:11 Potassium Chloride 100 ml @ 100 mls/hr AD PRN 02/06/24 06:30 03/07/24 06:29 Potassium Chloride 20 meq AD PRN 02/06/24 06:30 03/07/24 06:29 02/06/24 15:10 Potassium Chloride 20 meq AD PRN 02/06/24 06:30 03/07/24 06:29 Magnesium Sulfate 50 ml @ 0 mls/hr PROTOCOL PRN 02/06/24 07:00 03/07/24 06:59 Piperacillin Sod/ Tazobactam Sod 3.375 gm Q8H 02/06/24 14:00 02/16/24 13:59 02/06/24 15:11 Doxycycline Hyclate 250 ml @ 125 mls/hr Q12H 02/06/24 12:00 02/16/24 11:59 02/06/24 15:11 Review of Systems: CONST: No fever, fatigue, or weight changes. EYES: No recent vision problems. ENT: No congestion, ear pain, or sore throat. C/V: No chest pain, palpitations, or edema. RESP: No cough, congestion, wheezing or shortness of breath. GI: Admits to right upper quadrant pain upon palpation. No nausea, vomiting, or constipation. Admits to loose stools. : No incontinence or dysuria. SKIN: No rash. NEURO: No headache, focal numbness or weakness, dizziness, or seizures. PSYCH: No depression or anxiety. HEME: No abnormal bruising or bleeding. LYMPH: No swollen glands. Physical Examination: GENERAL: No acute distress. HEAD: Normal with no signs of head trauma. EYES: PERRLA, EOMI, conjunctiva and sclera normal. ENT: Hearing grossly intact, normal oropharynx. NECK: Supple without JVD. There is no tenderness, lymphadenopathy, or masses. No thyromegaly. Normal carotid upstrokes without bruits. LUNGS: Minimal rales to bases bilaterally. HEART: Irregularly irregular rate and rhythm. VASC: Unable to palpate bilateral DP pulses. BLE with darkened discoloration and scaly skin. ABD: Bowel sounds normal, soft, no masses, no organomegaly. No audible bruits. RUQ with pain upon palpation. : Not examined LYMPH: No lymphadenopathy noted. EXT: No clubbing, cyanosis or edema. SKIN: No rashes or lesions noted. NEURO: Alert, confused. Unable to answer some questions appropriately. Vital Signs (last 8hr) Date Time Temp Pulse Resp B/P (MAP) Pulse Ox O2 Delivery O2 Flow Rate FiO2 02/06/24 13:45 90 18 02/06/24 12:11 97.7 85 18 105/71 89 Nasal Cannula 2.0 02/06/24 09:43 95 20 N/A Room Air 21 02/06/24 09:40 95 18 Laboratory: Hematology Labs: Test 02/06/24 04:45 02/05/24 20:11 Range/Units White Blood Count 5.6 # 4.8-10.8 K/uL Red Blood Count 3.71 L 4.50-6.20 MIL/uL Hemoglobin 10.6 L 14.0-18.0 g/dL Hematocrit 34.0 L 42-54 % Mean Corpuscular Volume 91.6 79-99 fL Mean Corpuscular Hemoglobin 28.6 27.0-33.0 pg Mean Corpuscular Hemoglobin Concent 31.2 L 32.0-36.0 g/dL Red Cell Distribution Width 18.6 H 11.0-15.5 % Platelet Count 129 L 130-400 K/uL Mean Platelet Volume 11.9 H 7.5-10.5 fL Immature Granulocyte % (Auto) 0.4 0-1 % Neutrophils (%) (Auto) 69.9 40.0-77.0 % Lymphocytes (%) (Auto) 19.4 L 21.0-51.0 % Monocytes (%) (Auto) 8.7 3.0-13.0 % Eosinophils (%) (Auto) 1.1 0.0-8.0 % Basophils (%) (Auto) 0.5 0.0-5.0 % Neutrophils # (Auto) 3.9 1.8-7.7 K/uL Lymphocytes # (Auto) 1.1 1.0-4.8 K/uL Monocytes # (Auto) 0.5 0.1-1.0 K/uL Eosinophils # (Auto) 0.06 0.00-0.70 K/uL Basophils # (Auto) 0.03 0.00-0.20 K/uL Absolute Immature Granulocyte (auto 0.02 0-1 K/uL Nucleated Red Blood Cells 0.0 0.0-0.19 % Erythrocyte Sedimentation Rate 22 H 0-20 MM/HR Red Blood Cell Morphology See comments Chemistry Labs: Test 02/06/24 12:10 02/06/24 04:45 02/05/24 20:11 Range/Units Troponin I High Sensitivity 105 *H 4-75 ng/L Sodium Level 141 136-145 mmol/L Potassium Level 3.0 *L 3.5-5.1 mmol/L Chloride Level 103 101-111 mmol/L Carbon Dioxide Level 28 21-32 mmol/L Blood Urea Nitrogen 20 H 7-18 mg/dL Creatinine 1.4 H 0.5-1.3 mg/dL Glomerular Filtration Rate Calc 49 >90 mL/min Random Glucose 107 H 70-105 mg/dL Hemoglobin A1c 5.9 4.0-6.0 % Estimated Average Glucose (eAG) 123 70-126 mg/dL Total Calcium 8.4 L 8.5-10.1 mg/dL Magnesium Level 1.50 L 1.80-2.40 mg/dL Total Bilirubin 3.4 H 0.2-1.0 mg/dL Aspartate Amino Transf (AST/SGOT) 22 10-37 U/L Alanine Aminotransferase (ALT/SGPT) 16 12-78 U/L Alkaline Phosphatase 157 H 50-136 U/L B-Type Natriuretic Peptide 775 H 0-100 pg/mL Total Protein 6.2 6.0-8.3 g/dL Albumin 2.9 L 3.5-5.0 g/dL Triglycerides Level 61 30-200 mg/dL Cholesterol Level 78 <200 mg/dL LDL Cholesterol 41 0-99 mg/dL HDL Cholesterol 37 29-71 mg/dL Thyroid Stimulating Hormone (TSH) 9.73 H 0.36-3.74 uIU/mL Lipase 40 16-77 U/L Diagnostics / Radiology: Impression and Plan: Cholelithiasis with distended gallbladder Acute on chronic combined systolic and diastolic heart failure Elevated troponin Electrolyte derangement CKD stage IIIA HTN HLD Chronic atrial fibrillation on chronic anticoagulation with Eliquis Combined systolic and diastolic heart failure CAD s/p CABG in 2009, with bioprosthetic aortic valve replacement S/p Medtronic [id number] Luda XT SR MRI pacemaker implantation on 12/02/2021 in [place], [place] 2D echo in 05/2022 with an EF of 40-45%, peak gradient of 15mmHg Lexiscan stress test in 07/2022 demonstrated a moderate size area of mild mid and distal anterior wall ischemia with an EF 49% Severe bilateral venous insufficiency May-Thurner syndrome RLS Hypothyroidism Crohn's disease Hard of hearing Dementia Cholelithiasis with distended gallbladder -HIDA scan pending -General surgery consultation pending -If surgery is indicated, Eliquis will need to be held Acute on chronic combined systolic and diastolic heart failure BNP 775 Chest x-ray demonstrating cardiomegaly The patient is short of breath with movement -Lasix 20mg IV x1 -Continue on home medication of Bumex 2mg daily tomorrow -Continue metoprolol succinate 50 mg daily -Initiate Lisinopril 5mg daily as part of GDMT -Observe renal function, BMP and Mg in AM Elevated troponin Troponin 84, 93, 108, 107, and 105 which are mildly elevated and in a flat pattern EKG on admission demonstrated atrial fibrillation with a heart rate of 98bpm with a PVC and is ventricular pacing, without signs of ischemia The patient denies chest pain, chest pressure, palpitations, dizziness, nausea, or vomiting. -Of note, outpatient [facility] was cancelled by the as they were out of state in August 2023 Chronic atrial fibrillation on chronic anticoagulation with Eliquis Telemetry reporting NSR hr 90's -Continue metoprolol succinate 50 mg daily and Eliquis 2.5 mg b.i.d. ATTESTATION BY PHYSICIAN I have seen and examined the patient, reviewed the above documentation, participated in medical decision making, made necessary modifications, and agree with the treatment plan as documented by my mid-level provider above. My best impression is that the patient has borderline elevation of troponin relates to his noncardiac medical illness, not to an acute coronary syndrome. Patient is well known to Dr. Gama who will assume care of his case in the morning. MD ZOE Gabriel VALERIE L [facility] Feb 06, 2024 17:07 PER SIFUENTES MD Feb 06, 2024 21:53
[2024-02-06] MEDS: furoSEMIDE 20MG VIAL IV ONE (18:02)
[2024-02-06] MEDS ORDERED: BUMETANIDE 1 MG TAB PO SCH (19:00)
[2024-02-06] MEDS: monteLUKAST sodIUM 10 MG TAB PO SCH (22:11)
[2024-02-06] MEDS: atorVAStatin 20 MG TABLET PO SCH (22:11)
[2024-02-06] MEDS: predniSONE 20 MG TABLET PO SCH (22:11)
[2024-02-06] MEDS: IpraTROPium 0.5 MG/2.5 ML INH IH SCH (22:46)
[2024-02-06] MEDS: SODIUM CHLORIDE 3% FOR INHALATION 4 ML/AMP VIAL.NEB IH ONE (22:46)
[2024-02-07] VITALS (13 sets, daily range): BP systolic 114–141; BP diastolic 83–104; PULSE 63–137; RESP 16–20; TEMP 96.7–98.3; O2SAT 96–98
--- NOTE | 2024-02-07 00:28 | HMCIMG ---
NM HIDA WO EF/CCK REASON: Distended gallbladder. COMPARISON: None TECHNIQUE: Hepatobiliary imaging study was performed with 6.5 mCi of Choletec through intravenous route. 2 hour delayed images were obtained. FINDINGS: Normal visualization of gallbladder and bowel activity. IMPRESSION: Normal hepatobiliary imaging study.
[2024-02-07] MEDS: HALOPERIDOL INJ 5 MG/ML VIAL IM ONE (00:47)
[2024-02-07] MEDS: ZIPRASIDONE MESYLATE 20 MG/VIAL IM ONE ×2 (01:33→04:24)
[2024-02-07 04:13] LABS: HEMATOCRIT 37.2 % (42-54); MEAN CORPUSCULAR HEMOGLOBIN 28.3 pg (27.0-33.0); MEAN CORPUSCULAR HGB CONC 30.6 g/dL (32.0-36.0); MEAN CORPUSCULAR VOLUME 92.3 fL (79-99); RED BLOOD CELL COUNT(AUTO) 4.03 MIL/uL (4.50-6.20); RED CELL DISTRIBUTION WIDTH 18.9 % (11.0-15.5); WHITE BLOOD COUNT (AUTO) 7.9 K/uL (4.8-10.8)
[2024-02-07 04:39] LABS: ALBUMIN 3.3 g/dL (3.5-5.0); BILIRUBIN,TOTAL 4.8 mg/dL (0.2-1.0); CREATININE 1.8 mg/dL (0.5-1.3); POTASSIUM 4.3 mmol/L (3.5-5.1)
--- NOTE | 2024-02-07 05:42 | EKG ---
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
[2024-02-07] MEDS: BUMETANIDE 1MG/4ML VIAL IVP SCH (06:18)
[2024-02-07] MEDS: SODIUM CHLORIDE 3% FOR INHALATION 4 ML/AMP VIAL.NEB IH ONE ×2 (06:37→14:27)
[2024-02-07] MEDS: metoPROLOL tartRATE 1 MG/ML 5ML VIAL IV PRN (06:56)
--- NOTE | 2024-02-07 07:32 | PN ---
PROGRESS NOTE PROBLEM LIST: Cholelithiasis with distended gallbladder Acute on chronic combined systolic and diastolic heart failure Elevated troponin Electrolyte derangement CKD stage IIIA HTN HLD Chronic atrial fibrillation on chronic anticoagulation with Eliquis Combined systolic and diastolic heart failure CAD s/p CABG in 2009, with bioprosthetic aortic valve replacement S/p Medtronic [id number] Luda XT SR MRI pacemaker implantation on 12/02/2021 in [place], [place] 2D echo in 05/2022 with an EF of 40-45%, peak gradient of 15mmHg Lexiscan stress test in 07/2022 demonstrated a moderate size area of mild mid and distal anterior wall ischemia with an EF 49% Severe bilateral venous insufficiency May-Thurner syndrome RLS Hypothyroidism Crohn's disease Hard of hearing Dementia INTERIM HISTORY OF PRESENT ILLNESS: Patient had significant issues with being combative last night he was had to receive Haldol this morning. He has also been kept NPO and he has had episodes of tachycardia from his atrial fibrillation likely because of beta juan manuel withdrawal. He did have intravenous Lopressor administered this morning. HIDA scan results are pending. Other imaging studies did show evidence of cholelithiasis REVIEW OF SYSTEMS: No fever, headache, chest pain, abdominal pain, nausea, vomiting, or diarrhea. VITAL SIGNS Vital Signs Date Time Temp Pulse Resp B/P (MAP) Pulse Ox O2 Delivery O2 Flow Rate FiO2 02/07/24 06:56 118 141/100 02/07/24 06:29 20 N/Cannula Low lpm 2.0 28 02/07/24 04:30 97.5 97 Laboratory Tests 02/06/24 15:47 02/07/24 04:03 LABS/MEDS Laboratory Tests Test 02/06/24 12:10 02/06/24 15:47 02/07/24 04:03 Troponin I High Sensitivity 105 ng/L (4-75) *H Sodium Level 140 mmol/L (136-145) 141 mmol/L (136-145) Potassium Level 3.0 mmol/L (3.5-5.1) *L 4.3 mmol/L (3.5-5.1) Chloride Level 101 mmol/L (101-111) 102 mmol/L (101-111) Carbon Dioxide Level 30 mmol/L (21-32) 25 mmol/L (21-32) Blood Urea Nitrogen 20 mg/dL (7-18) H 23 mg/dL (7-18) H Creatinine 1.6 mg/dL (0.5-1.3) H 1.8 mg/dL (0.5-1.3) H Glomerular Filtration Rate Calc 42 mL/min (>90) 36 mL/min (>90) Random Glucose 100 mg/dL (70-105) 159 mg/dL (70-105) #H Total Calcium 8.6 mg/dL (8.5-10.1) 8.9 mg/dL (8.5-10.1) Total Bilirubin 4.1 mg/dL (0.2-1.0) #H 4.8 mg/dL (0.2-1.0) H Aspartate Amino Transf (AST/SGOT) 26 U/L (10-37) 36 U/L (10-37) Alanine Aminotransferase (ALT/SGPT) 15 U/L (12-78) 17 U/L (12-78) Alkaline Phosphatase 165 U/L (50-136) H 164 U/L (50-136) H Total Protein 6.8 g/dL (6.0-8.3) 7.0 g/dL (6.0-8.3) Albumin 3.1 g/dL (3.5-5.0) L 3.3 g/dL (3.5-5.0) L White Blood Count 7.9 K/uL (4.8-10.8) # Red Blood Count 4.03 MIL/uL (4.50-6.20) L Hemoglobin 11.4 g/dL (14.0-18.0) L Hematocrit 37.2 % (42-54) L Mean Corpuscular Volume 92.3 fL (79-99) Mean Corpuscular Hemoglobin 28.3 pg (27.0-33.0) Mean Corpuscular Hemoglobin Concent 30.6 g/dL (32.0-36.0) L Red Cell Distribution Width 18.9 % (11.0-15.5) H Platelet Count 152 K/uL (130-400) Mean Platelet Volume 11.5 fL (7.5-10.5) H Nucleated Red Blood Cells 0.0 % (0.0-0.19) Ammonia 18 umol/L (11-32) Current Medications Aspirin 324 mg ONCE ONCE PO Last administered on 02/05/24at 23:16; Start 02/05/24 at 23:00; Stop 02/05/24 at 23:01; Status DC Potassium Bicarbonate 25 meq ONCE ONCE PO Last administered on 02/05/24at 23:16; Start 02/05/24 at 23:00; Stop 02/05/24 at 23:01; Status DC Allopurinol 200 mg DAILY PO; Start 02/06/24 at 09:00; Stop 02/06/24 at 17:11; Status DC Apixaban 2.5 mg BID PO Last administered on 02/06/24at 22:11; Start 02/06/24 at 09:00; Stop 02/07/24 at 07:24; Status DC Atorvastatin Calcium 20 mg HS PO Last administered on 02/06/24at 22:11; Start 02/06/24 at 21:00; Stop 03/07/24 at 20:59 Gabapentin 300 mg DAILY PO Last administered on 02/06/24at 09:13; Start 02/06/24 at 09:00; Stop 02/06/24 at 18:47; Status DC Metoprolol Succinate 50 mg DAILY PO Last administered on 02/06/24at 09:05; Start 02/06/24 at 09:00; Stop 03/07/24 at 08:59 Nitroglycerin 0.4 mg AD SL; Start 02/06/24 at 00:00; Stop 03/07/24 at 00:00 Potassium Chloride 10 meq DAILY PO; Start 02/06/24 at 09:00; Stop 02/06/24 at 06:34; Status DC Ropinirole HCl 1 mg BID PO Last administered on 02/06/24at 22:11; Start 02/06/24 at 09:00; Stop 03/07/24 at 08:59 Bumetanide 2 mg DAILY PO Last administered on 02/06/24at 09:06; Start 02/06/24 at 09:00; Stop 02/06/24 at 18:44; Status DC Levothyroxine Sodium 50 mcg SYN PO; Start 02/06/24 at 06:30; Stop 03/07/24 at 06:29 Lorazepam 0.5 mg Q6H PRN PO Last administered on 02/06/24at 22:11; Start 02/06/24 at 00:30; Stop 02/07/24 at 00:35; Status DC Acetaminophen 650 mg Q6H PRN PO; Start 02/06/24 at 00:00; Stop 03/07/24 at 00:00 Acetaminophen 650 mg Q4H PRN PO; Start 02/06/24 at 00:00; Stop 03/07/24 at 00:00 Ondansetron HCl 4 mg Q6H PRN IV; Start 02/06/24 at 00:00; Stop 03/07/24 at 00:00 Albuterol 1 udvial [id number] IH Last administered on 02/06/24at 18:41; Start 02/06/24 at 02:00; Stop 02/06/24 at 18:47; Status DC Hydralazine HCl 10 mg Q6H PRN IV; Start 02/06/24 at 00:00; Stop 03/07/24 at 00:00 Famotidine 20 mg DAILY IV Last administered on 02/06/24at 09:14; Start 02/06/24 at 09:00; Stop 03/07/24 at 08:59 Aspirin 81 mg DAILY PO Last administered on 02/06/24at 09:12; Start 02/06/24 at 09:00; Stop 03/07/24 at 08:59 Potassium Chloride 100 ml @ 100 mls/hr AD PRN IV Last administered on 02/06/24at 06:15; Start 02/06/24 at 00:00; Stop 02/06/24 at 06:34; Status DC Magnesium Sulfate 50 ml @ 0 mls/hr PROTOCOL PRN IV Last administered on 02/06/24at 15:11; Start 02/06/24 at 00:00; Stop 03/07/24 at 00:00 Metronidazole/ Sodium Chloride 100 ml @ 100 mls/hr Q8H6 IVPB Last administered on 02/06/24at 06:54; Start 02/06/24 at 06:00; Stop 02/06/24 at 11:43; Status DC Potassium Chloride 100 ml @ 100 mls/hr AD PRN IV; Start 02/06/24 at 06:30; Stop 03/07/24 at 06:29 Potassium Chloride 20 meq AD PRN PO Last administered on 02/06/24at 22:15; Start 02/06/24 at 06:30; Stop 03/07/24 at 06:29 Potassium Chloride 20 meq AD PRN PO; Start 02/06/24 at 06:30; Stop 03/07/24 at 06:29 Potassium Chloride 100 ml @ 50 mls/hr AD PRN IV; Start 02/06/24 at 06:30; Stop 02/06/24 at 06:35; Status DC Magnesium Sulfate 50 ml @ 0 mls/hr PROTOCOL PRN IV; Start 02/06/24 at 07:00; Stop 02/06/24 at 17:11; Status DC Piperacillin Sod/ Tazobactam Sod 3.375 gm Q8H IV Last administered on 02/07/24at 06:18; Start 02/06/24 at 14:00; Stop 02/16/24 at 13:59 Doxycycline Hyclate 250 ml @ 125 mls/hr Q12H IV Last administered on 02/07/24at 01:38; Start 02/06/24 at 12:00; Stop 02/16/24 at 11:59 Furosemide 20 mg ONCE ONCE IV Last administered on 02/06/24at 18:02; Start 02/06/24 at 17:00; Stop 02/06/24 at 17:01; Status DC Lisinopril 5 mg DAILY PO; Start 02/07/24 at 09:00; Stop 03/08/24 at 08:59 Bumetanide 2 mg BID PO; Start 02/06/24 at 19:00; Stop 02/06/24 at 19:08; Status DC Gabapentin 100 mg BID PO Last administered on 02/06/24at 22:11; Start 02/06/24 at 21:00; Stop 03/07/24 at 08:59 Prednisone 20 mg BID PO Last administered on 02/06/24at 22:11; Start 02/06/24 at 21:00; Stop 02/11/24 at 20:59 Ipratropium [place] 0.5 MG [id number] IH Last administered on 02/07/24at 06:26; Start 02/06/24 at 22:00; Stop 03/07/24 at 21:59 Montelukast Sodium 10 mg HS PO Last administered on 02/06/24at 22:11; Start 02/06/24 at 21:00; Stop 03/07/24 at 20:59 Bumetanide 2 mg BID PO; Start 02/07/24 at 09:00; Stop 02/06/24 at 19:12; Status DC Bumetanide 1 mg BID IVP Last administered on 02/07/24at 06:18; Start 02/07/24 at 06:00; Stop 03/08/24 at 05:59 Sodium Chloride 4 ml STK-MED ONCE IH Last administered on 02/06/24at 22:46; Start 02/06/24 at 22:35; Stop 02/06/24 at 22:35; Status DC Haloperidol Lactate 2.5 mg ONCE ONCE IM Last administered on 02/07/24at 00:47; Start 02/07/24 at 00:30; Stop 02/07/24 at 00:35; Status DC Ziprasidone 10 mg ONCE ONCE IM Last administered on 02/07/24at 04:24; Start 02/07/24 at 01:30; Stop 02/07/24 at 01:31; Status DC Ziprasidone 20 mg STK-MED ONCE IM; Start 02/07/24 at 01:26; Stop 02/07/24 at 01:27; Status DC Sterile Water 10 ml STK-MED ONCE .ROUTE Last administered on 02/07/24at 04:24; Start 02/07/24 at 01:27; Stop 02/07/24 at 01:27; Status DC Sodium Chloride 4 ml STK-MED ONCE IH Last administered on 02/07/24at 06:37; Start 02/07/24 at 06:35; Stop 02/07/24 at 06:35; Status DC Metoprolol Tartrate 10 mg AD PRN IV Last administered on 02/07/24at 06:56; Start 02/07/24 at 07:00; Stop 03/08/24 at 06:59 PHYSICAL EXAMINATION: GENERAL: No acute distress. HEENT: Normocephalic, atraumatic. CARDIAC: Positive S1 and S2, irregularly irregular tachycardic. No murmurs. LUNGS: Clear to auscultation bilaterally. ABDOMEN: Bowel sounds present, soft, nontender. EXTREMITIES: No edema bilaterally. NEUROLOGIC: Cranial nerves 2-12 grossly intact. PSYCHIATRIC: Calm. TELEMETRY: AFib with RVR ASSESSMENT: [] See above PLAN: [] At this time I am going to schedule intravenous Lopressor ordered at 10 mg q.6 hours. We will await Dr. Graf and patient may be kept NPO. Patient has had an abnormal stress test in the past related to mid and distal anterior wall ischemia treated medically. I would not recommend any invasive studies from an angiographic standpoint coronary giordano on this admission and patient moving forward would be considered intermediate risk to proceed with low risk operation. We will continue to follow. Patient should continue on telemetry. I anticoagulation will be held. ANNA LOPEZ MD Feb 07, 2024 07:32
[2024-02-07] MEDS ORDERED: LISINOPRIL 5 MG TABLET PO SCH (09:00)
[2024-02-07] MEDS ORDERED: BUMETANIDE 1 MG TAB PO SCH (09:00)
[2024-02-07] MEDS: metoPROLOL tartRATE 1 MG/ML 5ML VIAL IV SCH (09:23)
--- NOTE | 2024-02-07 10:21 | HMCIMG ---
CT HEAD/BRAIN W/O CONTRAST HISTORY: Altered mental status COMPARISON: None TECHNIQUE: Multiple sequential axial images of the head were obtained from the base of the skull through vertex. Patient was not given contrast through intravenous route. FINDINGS: The ventricles and extraventricular CSF spaces are dilated consistent with cerebral atrophy. Nonspecific white matter changes seen. There is no midline shift, mass effect or herniation. No acute intracranial bleed is seen. Visualized portion of the paranasal sinuses are grossly within normal limits. There is atherosclerosis. IMPRESSION: 1. No acute intracranial bleed is seen. 2. Atrophy with white matter changes. CT was performed with one or more following dose reduction techniques: automated exposure control, adjustment of the mA and kv according to patient's size, or use of a iterative reconstruction technique.
--- NOTE | 2024-02-07 10:54 | CONS ---
CONSULT NOTE: Consulting physician: Dr. Chang Consulting service: General surgery Reason for consultation: Cholecystitis History of present illness: This is an 84-year-old male with a significant medical history listed below with bilateral hearing impairment that has been consulted to surgery for concerns of possible cholecystitis. Patient with at bedside and helping with patient's HPI due to patient's slightly confused state for medication reports that patient had began with the epigastric discomfort and mild shortness of breath prompting her to bring patient to the hospital for further evaluation. Patient with an extensive cardiac history all noted below. On presentation patient noted to have elevated troponins. WBCs unremarkable and hemoglobin stable patient however with an elevated bilirubin of 4.8 and normal LFTs. For that reason patient was sent for HIDA scan which was negative cholecystitis. At time of exam patient showing no abdominal pain on palpation. Patient currently NPO. Patient is pending cardiac workup at this time Medical history: hypertension, hyperlipidemia, hypothyroidism, CHF, atrial fibrillation on chronic anticoagulation, coronary artery disease with cardiac stent ,Pig valve and AICD PAST SURGICAL HISTORY: AICD, cardiac stent x4 2010, pig valve PAST SOCIAL HISTORY: Patient is a winter [place] he lives with his . Patient denies cigarette smoking and recreational drug use admits to drinking 2-3 glasses of wine per FAMILY HISTORY: Hypertension and cardiovascular disease Coded Allergies: No Known Allergies (Verified Allergy, Unknown, 06/04/23) Review of systems: General: No Fever, No Chills, No Night Sweats, No Fatigue, No Malaise, No Appetite, No Other HEENT: No Head Aches, No Visual Changes, No Eye Pain, No Ear Pain, No Dysphasia, No Sinus Congestion, No Post Nasal Drip, No Sore Throat, No Other Pulmonary: No Dyspnea, No Cough, No Pleuritic Chest Pain, No Other Cardiovascular: No: Chest Pain, Palpitations, Orthopnea, Paroxysmal No Dyspnea, Edema, Lt Headedness, Other Gastrointestinal: No: Nausea, Vomiting, Diarrhea, Constipation, Melena, Hematochezia, Other Genitourinary: No Dysuria, No Frequency, No Incontinence, No Hematuria, No Retention, No Other Musculoskeletal: No: other, neck pain, shoulder pain, arm pain, back pain, hand pain, leg pain, foot pain Skin: No Urticaria, No Rash, No Other Neurological: No: Weakness, Numbness, Incoordination, Change in speech, Confusion, Seizures, Other Physical exam: General: Confused Heart: Regular rate and rhythm} Lungs: [Clear to auscultation no distress Abdomen: [Soft, nontender, nondistended Assessment: This is an 84-year-old male consulted to surgery for concerns of cholecystitis recently pulled out with HIDA scan Plan: Recommendation will be for MRCP afebrile to be performed with patient's history AICD No immediate surgical intervention planned at this time Patient is cleared from surgical standpoint to have liquids if cleared by primary team Patient to continue with current cardiac workup for elevated troponins Dr. Graf to be updated in patient's status and surgical team to follow patient closely OMAR CARO Jr. Feb 07, 2024 10:54
--- NOTE | 2024-02-07 11:32 | PN ---
[facility] PROGRESS NOTE Date Patient Seen: Feb 07, 2024 Time of Visit: 11:32 Supervising Physician: Hank Pinon MD Primary Care Physician: Kevin Doyle MD Outpatient Specialists: Inpatient Consults: Dr Desean Gama MD, LUTHER Carrasco Attending physician: Daniel Chang MD PROBLEM LIST: Acute hypoxic respiratory failure, POA Acute metabolic encephalopathy, POA Elevated troponin, POA Acute on chronic CHF POA Suspected CAP, POA Chronic atrial fibrillation on chronic anticoagulation with Eliquis, POA Hypokalemia POA Intractable abdominal pain POA Gallstones in the distended gallbladder, POA on ultrasound 02/06/24 Bilateral renal cysts, POA 02/06/24 Cardiomegaly, POA Elevated liver enzymes POA Liver parenchymal disease, POA ALVINO on CKD, POA Normocytic Anemia POA Thrombocytopenia, not POA Hypertension POA Hyperlipidemia POA Hypothyroidism POA CAD s/p CABG in 2009, with bioprosthetic aortic valve replacement History of aortic valve replacement POA s/p [employer] [place] XT NSR MRI [id number] VVIR pacemaker implantation in [place], [place] S/p Pat[place] Vein ablation to the [facility] on 04/19/2018 Days ETOH 2-3 one glasses today Former Occasional smoker for 10 years INTERVAL HISTORY: Patient is awake alert and oriented times name but continues confused. Overnight became increasingly aggressive. CT of the head was performed and negative for any intracranial bleeding or acute processes. Shows atrophy with white matter changes. He is hemodynamically stable AFib in the 90s on tele monitor. O2 saturation 98% on 2 L via nasal cannula. Started patient on thiamine and folic acid IV given his history of drinking wine daily. Patient on CIWA protocol. We will continue to wean O2 as tolerated to maintain O2 sats above 92%. We will continue to wean Bumex as needed. REVIEW OF SYSTEMS: Unable to obtain due to patient confused. PHYSICAL EXAM: GENERAL: alert, awake generalized weakness oriented to name HEENT: EOMI, Sclera non icteric, moist mucosa NECK: Supple, no JVD, trachea midline LUNGS: Diminished breath sounds bilaterally. wheezes HEART: Regular rate and rhythm. Normal S1 and S2, without murmurs ABD: Abdomen soft, nontender. Bowel sounds present EXT: No clubbing cyanosis or edema NEURO: Alert and oriented to person, follows commands Vital Signs (last 8hr) Date Time Temp Pulse Resp B/P (MAP) Pulse Ox O2 Delivery O2 Flow Rate FiO2 02/07/24 09:23 103 118/86 02/07/24 07:00 98 Room Air* 0 21 02/07/24 07:00 97.2 106 18 118/86 98 Nasal Cannula 2.0 02/07/24 06:56 118 141/100 02/07/24 06:53 141/100 02/07/24 06:29 121 20 N/Cannula Low lpm 2.0 28 02/07/24 06:26 121 18 02/07/24 04:30 97.5 137 20 134/104 97 Room Air LABS: Hematology Labs: Test 02/07/24 04:03 02/06/24 04:45 02/05/24 20:11 Range/Units White Blood Count 7.9 # 4.8-10.8 K/uL Red Blood Count 4.03 L 4.50-6.20 MIL/uL Hemoglobin 11.4 L 14.0-18.0 g/dL Hematocrit 37.2 L 42-54 % Mean Corpuscular Volume 92.3 79-99 fL Mean Corpuscular Hemoglobin 28.3 27.0-33.0 pg Mean Corpuscular Hemoglobin Concent 30.6 L 32.0-36.0 g/dL Red Cell Distribution Width 18.9 H 11.0-15.5 % Platelet Count 152 130-400 K/uL Mean Platelet Volume 11.5 H 7.5-10.5 fL Nucleated Red Blood Cells 0.0 0.0-0.19 % Immature Granulocyte % (Auto) 0.4 0-1 % Neutrophils (%) (Auto) 69.9 40.0-77.0 % Lymphocytes (%) (Auto) 19.4 L 21.0-51.0 % Monocytes (%) (Auto) 8.7 3.0-13.0 % Eosinophils (%) (Auto) 1.1 0.0-8.0 % Basophils (%) (Auto) 0.5 0.0-5.0 % Neutrophils # (Auto) 3.9 1.8-7.7 K/uL Lymphocytes # (Auto) 1.1 1.0-4.8 K/uL Monocytes # (Auto) 0.5 0.1-1.0 K/uL Eosinophils # (Auto) 0.06 0.00-0.70 K/uL Basophils # (Auto) 0.03 0.00-0.20 K/uL Absolute Immature Granulocyte (auto 0.02 0-1 K/uL Erythrocyte Sedimentation Rate 22 H 0-20 MM/HR Red Blood Cell Morphology See comments Chemistry Labs: Test 02/07/24 11:18 02/07/24 04:03 02/06/24 12:10 02/06/24 04:45 Range/Units Whole Blood Glucose 113 H 70-110 MG/DL Bedside Glucose Comment Notified Nurse Sodium Level 141 136-145 mmol/L Potassium Level 4.3 3.5-5.1 mmol/L Chloride Level 102 101-111 mmol/L Carbon Dioxide Level 25 21-32 mmol/L Blood Urea Nitrogen 23 H 7-18 mg/dL Creatinine 1.8 H 0.5-1.3 mg/dL Glomerular Filtration Rate Calc 36 >90 mL/min Random Glucose 159 #H 70-105 mg/dL Total Calcium 8.9 8.5-10.1 mg/dL Total Bilirubin 4.8 H 0.2-1.0 mg/dL Aspartate Amino Transf (AST/SGOT) 36 10-37 U/L Alanine Aminotransferase (ALT/SGPT) 17 12-78 U/L Alkaline Phosphatase 164 H 50-136 U/L Ammonia 18 11-32 umol/L Total Protein 7.0 6.0-8.3 g/dL Albumin 3.3 L 3.5-5.0 g/dL Troponin I High Sensitivity 105 *H 4-75 ng/L Hemoglobin A1c 5.9 4.0-6.0 % Estimated Average Glucose (eAG) 123 70-126 mg/dL Magnesium Level 1.50 L 1.80-2.40 mg/dL B-Type Natriuretic Peptide 775 H 0-100 pg/mL Triglycerides Level 61 30-200 mg/dL Cholesterol Level 78 <200 mg/dL LDL Cholesterol 41 0-99 mg/dL HDL Cholesterol 37 29-71 mg/dL Thyroid Stimulating Hormone (TSH) 9.73 H 0.36-3.74 uIU/mL Test 02/05/24 20:11 Range/Units Lipase 40 16-77 U/L DIAGNOSTICS / RADIOLOGY RESULTS: Signed PATIENT: MEGAN ODELL MR#: [id number] : 1940 SEX: M AGE: 84 LOCATION: 2D ORDER 1133 STATUS: ADM IN REPORT#: [id number] SERVICE 1132 REASON: Hypoxic respiratory failure ORDERING PHYSICIAN: CRISTIN LUNA PROCEDURE: CXR1VW - CHEST 1VW CHEST 1VW HISTORY: Hypoxia COMPARISON: 02/05/2024 FINDINGS: A frontal projection of the chest was obtained. Mild bilateral pulmonary infiltrates are seen may be related to mild pulmonary vascular congestion with possible superimposed pneumonitis. Poststernotomy changes are seen. The heart is markedly enlarged. Degenerative changes of the thoracolumbar spine are present. Pacemaker is seen entering from the left. No evidence of aortic calcification is seen. IMPRESSION: 1. Mild bilateral pulmonary infiltrates are seen may be related to mild pulmonary vascular congestion with possible superimposed pneumonitis. Markedly enlarged heart. DICTATED BY: VISHNU ROBLEDO MD DATE: 02/07/24 134 ELECTRONICALLY SIGNED BY: VISHNU ROBLEDO MD DATE: 02/07/24 1345 PLAN Telemetry monitoring CBC, CMP BNP in a.m. Monitor electrolytes and replace accordingly Supplement O2 as needed to maintain saturations above 92% ABG as needed for symptoms of respiratory failure Chest x-ray in a.m. Strict I&O and daily weights Hydralazine p.r.n. for hypertension Bumex 1 mg IV push b.i.d. Fluid restriction of 1.5 L a day Continue with aspirin, Eliquis Statin therapy Respiratory culture Influenza and COVID-19 swabs Melatonin 10 mg p.o. at night Reorient patient frequently, during the day keep light on. Thiamine and folic acid NEURO: Minimize central acting medications as possible. Maintain fall precautions, adequate lighting during the day PULMONARY: Supplemental 02 as needed. Maintain aspiration precautions at all times CARDIOVASCULAR: Follow hemodynamics. Vital signs per facility protocol GI & NUTRITION: Continue with nutritional support. Continue stool softeners and laxatives as needed. KIDNEYS & ELECTROLYTES: Strict monitoring of intake, output and overall fluid balance. Avoid nephrotoxic medications to the extent possible. Medications to be dosed according to renal function. Monitor electrolytes and replace as needed ENDOCRINE: Maintain blood glucose between 100-180 at all times. Hypoglycemia protocol in place INFECTIOUS DISEASE: Trend temperature, WBC and procalcitonin level Follow cultures, deescalate antibiotics as soon as possible. Panculture if new onset fever ONCOLOGY/HEMATOLOGY/COAGULATION: Monitor for s/s of bleeding Monitor hemoglobin, coagulation studies as needed SKIN: Pressure ulcer prevention per facility protocol Specialty mattress ORTHO/REHAB: Continue PT/OT Prophylaxis: Continue GI and DVT prophylaxis Code Status: Full Resuscitation Disposition: TBD Other: Total patient care time exceeds 35 minutes excluding all procedures. CRISTIN LUNA [facility] Feb 07, 2024 11:32
[2024-02-07] MEDS ORDERED: COMPOUND IV MISC 1 EACH IVSOLN MISC PRN (12:00)
[2024-02-07] MEDS ORDERED: COMPOUND IV REFRIGERATED 1 EACH IVSOLN MISC PRN (12:00)
[2024-02-07] MEDS: M.V.I. IV [ADULT] 10 ML, FOLic ACID 5 MG/ML VIAL 1 MG, THIAMINE HCL 100 MG in 0.9%NACL ... IV SCH (12:46)
--- NOTE | 2024-02-07 12:48 | PN ---
[facility] PROGRESS NOTE Date of Service: Feb 07, 2024 Time of Service: 12:44 SUBJECTIVE: The patient has been seen and examined during my rounding, no acute events overnight, BP 114/70, afebrile, saturating normal on room air, he denied chest pain, shortness shortness for breath, no nausea, no vomiting, no abdominal discomfort. No family members at bedside during my visit. 02/06 the patient has been seen and examined during my rounding today, per my discussion with the nurse that is taking care of the patient, he became confused last night, during my visit sitter is at bedside, the patient following simple commands, but not agitated, not combative. is at bedside during my visit, updated. Results of HIDA scan reviewed, discussed with her. All questions ans wered. REVIEW OF SYSTEMS CONSTITUTIONAL: Denies fevers, chills, or night sweats. No unintentional weight loss reported. NEUROLOGICAL: Denies headache, amaurosis fugax, motor weakness, sensory deficit, vertigo/spinning sensation, gait abnormalities, or tremors. ENT: No hearing loss, otalgia, otorrhea, rhinitis, rhinorrhea, hoarseness, or sore throat. CARDIOVASCULAR: Denies any exertional angina, dyspnea on exertion, orthopnea, paroxysmal nocturnal dyspnea, palpitations, life-threatening arrhythmias, claudication. PULMONARY: Positive shortness of breath Denies cough, phlegm/sputum, hemoptysis, pleuritic chest pain. SLEEP: Denies morning headaches, daytime somnolence or napping. Denies difficulty falling asleep, staying asleep, waking from sleep. Denies knowledge of snoring. GASTROINTESTINAL: Positive abdominal pain and diarrhea Denies any type of dysphagia to either liquids or solids. Denies nausea, vomiting, pyrosis, early satiety, constipation, or changes in stool consistency or caliber. Denies coffee-ground emesis, hematemesis, hematochezia, or melanotic stools. GENITOURINARY: Denies frequency, urgency, nocturia, hematuria or incontinence (Storage/Irritative symptoms.) Low urinary stream, straining to void, urinary intermittency or hesitancy, splitting of the voiding stream, terminal dribbling. ENDOCRINOLOGIC: Denies polyuria, polydipsia, polyphagia or heat/cold intolerances. HEMATOLOGIC: Denies thrombophilia/previous clots, or coagulopathy/bleeding disorders. ONCOLOGIC: Denies personal history of malignancy. DERMATOLOGIC: Denies rashes or pruritus. PSYCHIATRIC: Denies any suicidal or homicidal ideation. Denies hallucinations. PHYSICAL EXAM GENERAL APPEARANCE: Resting comfortably in bed, confused, dry oral mucosa noted. NEUROLOGICAL: Cranial nerves II-XII grossly intact. Motor is 5/5 in bilateral upper and lower extremities proximal to distal. No sensory deficits. HEENT: Face is symmetric. Pupils are equal and reactive. Extraocular movements are intact. NECK: Supple. No JVD. No thyromegaly. No submental, submandibular, pre- /postauricular, occipital or supraclavicular lymphadenopathy. CHEST: Normal chest expansion. No Telemetry. LUNGS: Absence of any rales, rhonchi or any wheezing. CARDIOVASCULAR: Regular. S1 and S2 normal. No appreciable rubs, murmurs or gallops. ABDOMEN: No rebound tenderness : Deferred. No Castañeda. EXTREMITIES: Trace edema to bilateral lower extremities SKIN: No skin breakdown. Vital Signs (last 8hr) Date Time Temp Pulse Resp B/P (MAP) Pulse Ox O2 Delivery O2 Flow Rate FiO2 02/07/24 11:00 97.0 100 16 130/91 99 Nasal Cannula 02/07/24 09:23 103 118/86 02/07/24 07:00 98 Room Air* 0 21 02/07/24 07:00 97.2 106 18 118/86 98 Nasal Cannula 2.0 02/07/24 06:56 118 141/100 02/07/24 06:53 141/100 02/07/24 06:29 121 20 N/Cannula Low lpm 2.0 28 02/07/24 06:26 121 18 LABS: Laboratory: Test 02/07/24 11:18 02/07/24 04:03 02/06/24 12:10 02/06/24 04:45 Range/Units Whole Blood Glucose 113 H 70-110 MG/DL Bedside Glucose Comment Notified Nurse White Blood Count 7.9 # 4.8-10.8 K/uL Red Blood Count 4.03 L 4.50-6.20 MIL/uL Hemoglobin 11.4 L 14.0-18.0 g/dL Hematocrit 37.2 L 42-54 % Mean Corpuscular Volume 92.3 79-99 fL Mean Corpuscular Hemoglobin 28.3 27.0-33.0 pg Mean Corpuscular Hemoglobin Concent 30.6 L 32.0-36.0 g/dL Red Cell Distribution Width 18.9 H 11.0-15.5 % Platelet Count 152 130-400 K/uL Mean Platelet Volume 11.5 H 7.5-10.5 fL Nucleated Red Blood Cells 0.0 0.0-0.19 % Sodium Level 141 136-145 mmol/L Potassium Level 4.3 3.5-5.1 mmol/L Chloride Level 102 101-111 mmol/L Carbon Dioxide Level 25 21-32 mmol/L Blood Urea Nitrogen 23 H 7-18 mg/dL Creatinine 1.8 H 0.5-1.3 mg/dL Glomerular Filtration Rate Calc 36 >90 mL/min Random Glucose 159 #H 70-105 mg/dL Total Calcium 8.9 8.5-10.1 mg/dL Magnesium Level 2.00 1.6-2.6 mg/dL Total Bilirubin 4.8 H 0.2-1.0 mg/dL Aspartate Amino Transf (AST/SGOT) 36 10-37 U/L Alanine Aminotransferase (ALT/SGPT) 17 12-78 U/L Alkaline Phosphatase 164 H 50-136 U/L Ammonia 18 11-32 umol/L Total Protein 7.0 6.0-8.3 g/dL Albumin 3.3 L 3.5-5.0 g/dL Troponin I High Sensitivity 105 *H 4-75 ng/L Immature Granulocyte % (Auto) 0.4 0-1 % Neutrophils (%) (Auto) 69.9 40.0-77.0 % Lymphocytes (%) (Auto) 19.4 L 21.0-51.0 % Monocytes (%) (Auto) 8.7 3.0-13.0 % Eosinophils (%) (Auto) 1.1 0.0-8.0 % Basophils (%) (Auto) 0.5 0.0-5.0 % Neutrophils # (Auto) 3.9 1.8-7.7 K/uL Lymphocytes # (Auto) 1.1 1.0-4.8 K/uL Monocytes # (Auto) 0.5 0.1-1.0 K/uL Eosinophils # (Auto) 0.06 0.00-0.70 K/uL Basophils # (Auto) 0.03 0.00-0.20 K/uL Absolute Immature Granulocyte (auto 0.02 0-1 K/uL Erythrocyte Sedimentation Rate 22 H 0-20 MM/HR Hemoglobin A1c 5.9 4.0-6.0 % Estimated Average Glucose (eAG) 123 70-126 mg/dL B-Type Natriuretic Peptide 775 H 0-100 pg/mL Triglycerides Level 61 30-200 mg/dL Cholesterol Level 78 <200 mg/dL LDL Cholesterol 41 0-99 mg/dL HDL Cholesterol 37 29-71 mg/dL Thyroid Stimulating Hormone (TSH) 9.73 H 0.36-3.74 uIU/mL Test 02/05/24 22:41 02/05/24 21:20 02/05/24 20:11 02/05/24 19:51 Range/Units Blood Gas Specimen Type Arterial Arterial Blood pH 7.482 H 7.350-7.450 Arterial Blood Partial Pressure CO2 30 L 35-48 mmHg Arterial Blood Partial Pressure O2 63.2 L 83.0-108.0 mmHg Arterial Blood HCO3 22.2 21.0-28.0 mmol/L Arterial Blood Oxygen Saturation 90.9 L 94.0-98.0 % Arterial Blood Base Excess -0.5 -2.0-3.0 mmol/L Hemoglobin (Blood Gas) 12.0 L 13.5-17.5 g/dL Sodium (Blood Gas) 141 136-145 MMOL/L Bedside Potassium (Blood Gas) 3.2 L 3.4-4.5 MMOL/L Bedside Chloride (Blood Gas) 104 98-107 MMOL/L Bedside Glucose (Blood Gas) 97 H 65-95 MG/DL Bedside Ionized Calcium (Blood Gas) 1.10 L 1.15-1.33 MMOL/L Bedside Lactic Acid (Blood Gas) 2.26 H 0.36-0.75 MMOL/L Blood Gas Temperature 37.0 35.5-37.0 CELSIUS Blood Gas Vent Mode ROOMAIR ROOM AIR FiO2 21.0 % Blood Gas Specimen Comment RB Urine Opiates Screen NEGATIVE NEGATIVE Urine Barbiturates Screen NEGATIVE NEGATIVE Urine Phencyclidine Screen NEGATIVE NEGATIVE Urine Amphetamines Screen NEGATIVE NEGATIVE Urine Benzodiazepines Screen NEGATIVE NEGATIVE Urine Cocaine Screen NEGATIVE NEGATIVE Urine Marijuana (THC) Screen NEGATIVE NEGATIVE Red Blood Cell Morphology See comments Lipase 40 16-77 U/L Urine Color LIGHT-YELLOW YELLOW Urine Appearance CLEAR CLEAR Urine pH 6.5 5.0-8.0 Urine Specific Patterson 1.008 1.001-1.031 Urine Protein NEGATIVE NEGATIVE mg/dL Urine Glucose (UA) NEGATIVE NEGATIVE mg/dL Urine Ketones NEGATIVE NEGATIVE mg/dL Urine Occult Blood NEGATIVE NEGATIVE Urine Nitrate NEGATIVE NEGATIVE Urine Bilirubin NEGATIVE NEGATIVE mg/dL Urine Urobilinogen 0.2 0.2-1.0 mg/dL Urine Leukocyte Esterase NEGATIVE NEGATIVE Vin/uL Current Medications Medications (Trade) Dose Ordered Sig/Trisha Route PRN Reason Start Time Stop Time Status Last Admin Dose Admin Acetaminophen (TYLenol 325MG TAB) 650 mg Q4H PRN PO MILD PAIN (1-3) 02/06/24 00:00 03/07/24 00:00 Acetaminophen (TYLenol 325MG TAB) 650 mg Q6H PRN PO TEMPERATURE GREATER THAN 101.5 02/06/24 00:00 03/07/24 00:00 Albuterol (DUOneb) 1 udvial [id number] IH 02/06/24 02:00 02/06/24 18:47 DC 02/06/24 18:41 1 UDVIAL Allopurinol (ZYLOprim 100MG) 200 mg DAILY PO 02/06/24 09:00 02/06/24 17:11 DC Apixaban (EliquIS 2.5 mg) 2.5 mg BID PO 02/06/24 09:00 02/07/24 07:24 DC 02/06/24 22:11 2.5 MG Aspirin (Aspirin 81mg Ec Tab) 81 mg DAILY PO 02/06/24 09:00 03/07/24 08:59 02/07/24 09:23 81 MG Atorvastatin Calcium (LIPItor 20MG) 20 mg HS PO 02/06/24 21:00 03/07/24 20:59 02/06/24 22:11 20 MG Bumetanide (Bumex 1mg Tab) 2 mg BID PO 02/06/24 19:00 02/06/24 19:08 DC Bumetanide (Bumex 1mg Tab) 2 mg BID PO 02/07/24 09:00 02/06/24 19:12 DC Bumetanide (Bumex 1mg Tab) 2 mg DAILY PO 02/06/24 09:00 02/06/24 18:44 DC 02/06/24 09:06 2 MG Bumetanide (Bumex 1mg Vial) 1 mg BID IVP 02/07/24 06:00 03/08/24 05:59 02/07/24 09:24 1 MG Doxycycline Hyclate 250 ml @ 125 mls/hr Q12H IV 02/06/24 12:00 02/16/24 11:59 02/07/24 01:38 125 MLS/HR Famotidine (Pepcid 20mg Vial) 20 mg DAILY IV 02/06/24 09:00 03/07/24 08:59 02/07/24 09:24 20 MG Gabapentin (NEURontin 100 mg CAP) 100 mg BID PO 02/06/24 21:00 03/07/24 08:59 02/07/24 09:24 100 MG Gabapentin (NEURontin 100 mg CAP) 300 mg DAILY PO 02/06/24 09:00 02/06/24 18:47 DC 02/06/24 09:13 300 MG Hydralazine HCl (APRESOLine 20MG INJ) 10 mg Q6H PRN IV For:SBP above 160;DBP above 90 02/06/24 00:00 03/07/24 00:00 Ipratropium Picher (AtrovENT UD) 0.5 MG [id number] IH 02/06/24 22:00 03/07/24 21:59 02/07/24 06:26 0.5 MG Levothyroxine Sodium (SYNTHroid 50MCG TAB) 50 mcg SYN PO 02/06/24 06:30 03/07/24 06:29 Lisinopril (Prinivil 5mg) 5 mg DAILY PO 02/07/24 09:00 02/07/24 07:35 DC Lorazepam (AtiVAN) 0.5 mg Q6H PRN PO ANXIETY/AGITATION 02/06/24 00:30 02/07/24 00:35 DC 02/06/24 22:11 0.5 MG Magnesium Sulfate 50 ml @ 0 mls/hr PROTOCOL PRN IV OTHER [SEE ORDER COMMENTS] 02/06/24 00:00 03/07/24 00:00 02/06/24 15:11 50 MLS/HR Magnesium Sulfate 50 ml @ 0 mls/hr PROTOCOL PRN IV LOW MAGNESIUM 02/06/24 07:00 02/06/24 17:11 DC Metoprolol Succinate (TopROL XL) 50 mg DAILY PO 02/06/24 09:00 03/07/24 08:59 02/06/24 09:05 50 MG Metoprolol Tartrate (loprESSOR) 10 mg AD PRN IV INCREASED HEART RATE 02/07/24 07:00 03/08/24 06:59 02/07/24 06:56 10 MG Metoprolol Tartrate (loprESSOR) 10 mg Q6H IV 02/07/24 08:00 03/08/24 07:59 02/07/24 09:23 10 MG Metronidazole/ Sodium Chloride 100 ml @ 100 mls/hr Q8H6 IVPB 02/06/24 06:00 02/06/24 11:43 DC 02/06/24 06:54 100 MLS/HR Montelukast Sodium (SinguLAIR) 10 mg HS PO 02/06/24 21:00 03/07/24 20:59 02/06/24 22:11 10 MG Multivitamins/ Minerals 10 ml/ Folic Acid 1 mg/ Thiamine HCl 100 mg/Sodium Chloride 1,010 ml @ 75 mls/hr DAILY IV 02/07/24 12:00 03/08/24 11:59 Nitroglycerin (Nitrostat) 0.4 mg AD SL 02/06/24 00:00 03/07/24 00:00 Ondansetron HCl (zoFRAN 4MG INJ) 4 mg Q6H PRN IV NAUSEA/VOMITING 02/06/24 00:00 03/07/24 00:00 Piperacillin Sod/ Tazobactam Sod (Zosyn 3.375gm+NS 50ml) 3.375 gm Q8H IV 02/06/24 14:00 02/16/24 13:59 02/07/24 06:18 3.375 GM Potassium Chloride 100 ml @ 50 mls/hr AD PRN IV POTASSIUM PROTOCOL 02/06/24 06:30 02/06/24 06:35 DC Potassium Chloride 100 ml @ 100 mls/hr AD PRN IV POTASSIUM PROTOCOL 02/06/24 00:00 02/06/24 06:34 DC 02/06/24 06:15 100 MLS/HR Potassium Chloride 100 ml @ 100 mls/hr AD PRN IV POTASSIUM PROTOCOL 02/06/24 06:30 03/07/24 06:29 Potassium Chloride (K-Dur 10meq Sr Tab) 10 meq DAILY PO 02/06/24 09:00 02/06/24 06:34 DC Potassium Chloride (K-Dur/Klor-Con 20meq) 20 meq AD PRN PO POTASSIUM PROTOCOL 02/06/24 06:30 03/07/24 06:29 Potassium Chloride (KCl 10% Elixir 20meq/15ml) 20 meq AD PRN PO POTASSIUM PROTOCOL 02/06/24 06:30 03/07/24 06:29 02/06/24 22:15 20 MEQ Prednisone (deltaSONE/ oraSONE 20MG TAB) 20 mg BID PO 02/06/24 21:00 02/11/24 20:59 02/07/24 09:22 20 MG Ropinirole HCl (REquip) 1 mg BID PO 02/06/24 09:00 03/07/24 08:59 02/07/24 09:23 1 MG DIAGNOSTICS / RADIOLOGY: [ ] NM HIDA WO EF/CCK REASON: Distended gallbladder. COMPARISON: None TECHNIQUE: Hepatobiliary imaging study was performed with 6.5 mCi of Choletec through intravenous route. 2 hour delayed images were obtained. FINDINGS: Normal visualization of gallbladder and bowel activity. IMPRESSION: Normal hepatobiliary imaging study. ASSESSMENT: Elevated troponin rule out ACS POA Acute on chronic CHF POA Acute respiratory failure POA Persistent atrial fibrillation POA Hypokalemia POA Intractable abdominal pain POA Suspected gastroenteritis POA Elevated liver enzymes POA Acute on chronic renal insufficiency POA Anemia POA Hypertension POA Hyperlipidemia POA Hypothyroidism POA Coronary artery disease with cardiac stent x4 POA History of aortic valve replacement POA AICD status POA PLAN: Remains admitted to the PCU Continue bus monitor Currently NPO Cardiology consultation requested, input noted and appreciated HIDA scan unremarkable Continue aspirin 81 mg p.o. daily Continue on Famotidine 20 mg IV daily for GI prophylaxis We will replace electrolytes as needed per protocol Continue on insulin sliding scale AC & HS with hypoglycemia protocol Continue prn medication for fever,pain,nausea and vomiting Reconcile home meds Replace electrolytes IV per protocol GI and DVT prophylaxis Further orders to follow depending on above results Disposition: Patient remains admitted to the PCU, start the patient on multivitamin IV, monitor mental status, CT head without contrast is unremarkable, we will continue with sitter at bedside. Echocardiogram pending to evaluate ejection fraction. cardiology input noted and appreciated, medical management. HIDA scan is unremarkable, discussed with the , all questions answered. Follow creatinine in a.m.. Total time spent greater than 30 minutes LAURA GRAJEDA MD Feb 07, 2024 12:48
[2024-02-07] MEDS: PoTASSium chloRIDE 20MEQ/100ML 100 ML IV ONE (13:00)
--- NOTE | 2024-02-07 13:45 | HMCIMG ---
CHEST 1VW HISTORY: Hypoxia COMPARISON: 02/05/2024 FINDINGS: A frontal projection of the chest was obtained. Mild bilateral pulmonary infiltrates are seen may be related to mild pulmonary vascular congestion with possible superimposed pneumonitis. Poststernotomy changes are seen. The heart is markedly enlarged. Degenerative changes of the thoracolumbar spine are present. Pacemaker is seen entering from the left. No evidence of aortic calcification is seen. IMPRESSION: 1. Mild bilateral pulmonary infiltrates are seen may be related to mild pulmonary vascular congestion with possible superimposed pneumonitis. Markedly enlarged heart.
[2024-02-07] MEDS ORDERED: THIAMINE HCL 100 MG/ML 2ML VIAL IVP SCH (14:00)
[2024-02-07] MEDS ORDERED: PHARMACY COMMUNICATION MISC PRN (14:00)
[2024-02-07] MEDS ORDERED: chlordiazePOXIDE HCL 25 MG CAP PO PRN (14:00)
[2024-02-07] MEDS: THIAMINE HCL 300 MG in 0.9%NACL 100ML 100 ML IV ONE (15:46)
--- NOTE | 2024-02-07 18:05 | HMCSR ---
APPROVED REPORT EXAM: Two-dimensional and M-mode echocardiogram with Doppler and color Doppler. Study Details: hypertension, hyperlipidemia, hypothyroidism, CHF, atrial fibrillation on chronic anti coagulation, coronary artery disease with cardiac stent ,Pig valve and AICD INDICATION ICD: Elevated troponin, shortness of breath 2D Dimensions RVDd5.3 cmLVEF(%)42.6 (>50%)LVED Vol(simp.)180.0 mL IVSd1.1 (0.7-1.1cm)FS(%)22 %LVES Vol(simp.)82.8 mL LVDd6.5 (3.8-5.6cm)LA (2D)5.2 (1.6-4.0cm)LVEF(%, simp.)54 % PWd1.2 (0.7-1.1cm)Ao Root(2D)4.6 (2.0-3.7cm)LA ESV INDEX (4CH)53.50 mL/m2 IVSs1.1 cmLA ESV INDEX (2CH)97.70 mL/m2 LVDs5.1 (2.5-4.0cm)LA ESV INDEX (BP)78.40 mL/m2 PWs1.2 cm Deformation Strain Apical 49.0 % Apical 215.0 % Apical 312.0 % Global Pzcfhl26.0 % M-Mode Dimensions EPSS1.0 cm LA (MM)5.3 (1.6-4.0cm) Ao Root(MM)4.8 (2.0-3.7cm) Aortic Valve AoV VTI0.3 mAo Mean GR9.0 mmHgLVOT VTI0.14 m Mitral Valve MV E Gssn108.3 cm/sDECEL Nftp163 ms MR Max PG98 mmHgP 1/2 T64 ms MVA (PHT)3.4 cm2 TDI E/E' Nequrm34.9E/E' Mrfpiqs48.7 Medial E' Peak V5.20 cm/sLateral E' Peak V8.70 cm/s Pulmonary Valve PV Vmax0.8 m/s PV Peak GR2.7 mmHg Tricuspid Valve TR Vmax2.4 m/s TR Peak GR22.8 mmHg Left Ventricle The left ventricle is severely dilated. Septal dyskinesis There is normal left ventricular wall thick ness. LVEF is 50-55%. Stage III diastolic dysfunction. Right Ventricle The right ventricle is severely dilated. Right ventricular systolic function is severely reduced. Pac er lead noted Atria The left atrium is severely dilated. Evidence of possible PFO by color doppler. The right atrium is s everely dilated. Aortic Valve Prosthetic aortic valve is normal in appearance and well seated. No aortic regurgitation is present. There is no aortic valvular stenosis. Mitral Valve The mitral valve is normal in structure and function. Mitral regurgitation is mild. There is no venkata l valve stenosis. Tricuspid Valve The tricuspid valve is normal in structure and function. No appreciable tricuspid regurgitation docum ented on color flow Doppler interrogation. Pulmonic Valve The pulmonary valve is normal in structure and function. There is no pulmonic valvular regurgitation. Great Vessels The aortic root is normal in size. Pericardium The pericardium appears normal. Conclusion The right ventricle is severely dilated. Right ventricular systolic function is severely reduced. The left atrium is severely dilated. The right atrium is severely dilated. Prosthetic aortic valve is normal in appearance and well seated.
[2024-02-07] MEDS: MELATONIN 5 MG TABLET PO SCH (21:08)
[2024-02-08] VITALS (14 sets, daily range): BP systolic 118–135; BP diastolic 63–89; PULSE 84–108; RESP 18–20; TEMP 97–98.6; O2SAT 87–97
[2024-02-08] MEDS: chlordiazePOXIDE HCL 25 MG CAP PO PRN (03:34)
[2024-02-08 03:54] LABS: BASOPHILS # (AUTO) 0.02 K/uL (0.00-0.20); BASOPHILS % (AUTO) 0.2 % (0.0-5.0); EOSINOPHILS # (AUTO) 0.21 K/uL (0.00-0.70); HEMATOCRIT 38.2 % (42-54); IMMATURE GRANULOCYTE ABSOLUTE 0.06 K/uL (0-1); LYMPHOCYTES # (AUTO) 0.7 K/uL (1.0-4.8); LYMPHOCYTES % (AUTO) 7.2 % (21.0-51.0); MEAN CORPUSCULAR HEMOGLOBIN 28.8 pg (27.0-33.0); MEAN CORPUSCULAR HGB CONC 31.4 g/dL (32.0-36.0); MEAN CORPUSCULAR VOLUME 91.6 fL (79-99); MONOCYTES # (AUTO) 0.4 K/uL (0.1-1.0); MONOCYTES % (AUTO) 3.8 % (3.0-13.0); NEUTROPHILS # (AUTO) 8.9 K/uL (1.8-7.7); NEUTROPHILS % (AUTO) 86.2 % (40.0-77.0); NUCLEATED RED BLOOD CELLS 0.4 % (0.0-0.19); PLATELET COUNT (AUTO) 184 K/uL (130-400); RED BLOOD CELL COUNT(AUTO) 4.17 MIL/uL (4.50-6.20); RED CELL DISTRIBUTION WIDTH 19.8 % (11.0-15.5); WHITE BLOOD COUNT (AUTO) 10.3 K/uL (4.8-10.8)
[2024-02-08 04:17] LABS: BILIRUBIN,TOTAL 5.9 mg/dL (0.2-1.0); CREATININE 2.2 mg/dL (0.5-1.3); POTASSIUM 4.2 mmol/L (3.5-5.1); TOTAL PROTEIN, SERUM 6.4 g/dL (6.0-8.3)
[2024-02-08 04:20] LABS: COVID19 (SARS ANTIGEN RAPID) PRESUMPTIVE NEGATIVE (NEGATIVE); INFLUENZA TYPE A Negative For Type A (NEGATIVE); INFLUENZA TYPE B Negative For Type B (NEGATIVE)
[2024-02-08] MEDS: FOLic ACID 5 MG/ML VIAL IV SCH (09:32)
--- NOTE | 2024-02-08 13:19 | PN ---
[facility] PROGRESS NOTE Date Patient Seen: Feb 08, 2024 Time of Visit: 13:18 Supervising Physician: Hank Pinon MD Primary Care Physician: Kevin Doyle MD Outpatient Specialists: Inpatient Consults: Dr Desean Gama MD, LUTHER Carrasco Attending physician: Daniel Chang MD PROBLEM LIST: Acute hypoxic respiratory failure, POA, resolving Acute metabolic encephalopathy, POA, resolving Elevated troponin, POA Acute on chronic CHF POA Suspected CAP, POA Chronic atrial fibrillation on chronic anticoagulation with Eliquis, POA Hypokalemia POA Intractable abdominal pain POA Gallstones in the distended gallbladder, POA on ultrasound 02/06/24 Bilateral renal cysts, POA 02/06/24 Cardiomegaly, POA Elevated liver enzymes POA Liver parenchymal disease, POA ALVINO on CKD, POA Normocytic Anemia POA Thrombocytopenia, not POA Hypertension POA Hyperlipidemia POA Hypothyroidism POA CAD s/p CABG in 2009, with bioprosthetic aortic valve replacement History of aortic valve replacement POA s/p [employer] [place] XT NSR MRI [id number] VVIR pacemaker implantation in [place], [place] S/p [place] 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 Overnight became increasingly aggressive. CT of the head was performed and negative for any intracranial bleeding or acute processes. Shows atrophy with white matter changes. He is hemodynamically stable AFib in the 90s on tele monitor. O2 saturation 98% on 2 L via nasal cannula. Started patient on thiamine and folic acid IV given his history of drinking wine daily. Patient on CIWA protocol. We will continue to wean O2 as tolerated to maintain O2 sats abo ve 92%. We will continue to wean Bumex as needed. 02/07-patient is awake alert and oriented to name and place. Patient has not been aggressive today. Improving in mental status. H&H is 12/38.2 today platelet count is normal neutrophils 86.2. Chemistry creatinine is 2.2 and GFR is 28 decreased from yesterday. Albumin 3.0. Patient continues on antibiotics for CAP is Rocephin and azithromycin. Plan and respiratory cultures. Patient has been hemodynamically stable afebrile 92 % on bedside monitor without O2 at room air. We will need to 6 minute walk to assess home O2 needs prior to discharge REVIEW OF SYSTEMS: Unable to obtain due to patient confused. PHYSICAL EXAM: GENERAL: alert, awake generalized weakness oriented to name HEENT: EOMI, Sclera non icteric, moist mucosa NECK: Supple, no JVD, trachea midline LUNGS: Diminished breath sounds bilaterally. wheezes HEART: Regular rate and rhythm. Normal S1 and S2, without murmurs ABD: Abdomen soft, nontender. Bowel sounds present EXT: No clubbing cyanosis or edema NEURO: Alert and oriented to person, follows commands Vital Signs (last 8hr) Date Time Temp Pulse Resp B/P (MAP) Pulse Ox O2 Delivery O2 Flow Rate FiO2 02/08/24 11:00 98.6 100 20 126/74 95 Room Air 02/08/24 09:32 109 123/88 02/08/24 07:16 103 18 N/Cannula Low lpm 2.0 28 02/08/24 07:13 103 19 02/08/24 07:00 97.9 100 20 123/88 95 Room Air LABS: Hematology Labs: Test 02/08/24 03:42 Range/Units White Blood Count 10.3 # 4.8-10.8 K/uL Red Blood Count 4.17 L 4.50-6.20 MIL/uL Hemoglobin 12.0 L 14.0-18.0 g/dL Hematocrit 38.2 L 42-54 % Mean Corpuscular Volume 91.6 79-99 fL Mean Corpuscular Hemoglobin 28.8 27.0-33.0 pg Mean Corpuscular Hemoglobin Concent 31.4 L 32.0-36.0 g/dL Red Cell Distribution Width 19.8 H 11.0-15.5 % Platelet Count 184 130-400 K/uL Mean Platelet Volume 12.7 H 7.5-10.5 fL Immature Granulocyte % (Auto) 0.6 0-1 % Neutrophils (%) (Auto) 86.2 H 40.0-77.0 % Lymphocytes (%) (Auto) 7.2 L 21.0-51.0 % Monocytes (%) (Auto) 3.8 3.0-13.0 % Eosinophils (%) (Auto) 2.0 0.0-8.0 % Basophils (%) (Auto) 0.2 0.0-5.0 % Neutrophils # (Auto) 8.9 H 1.8-7.7 K/uL Lymphocytes # (Auto) 0.7 L 1.0-4.8 K/uL Monocytes # (Auto) 0.4 0.1-1.0 K/uL Eosinophils # (Auto) 0.21 0.00-0.70 K/uL Basophils # (Auto) 0.02 0.00-0.20 K/uL Absolute Immature Granulocyte (auto 0.06 0-1 K/uL Nucleated Red Blood Cells 0.4 H 0.0-0.19 % White Cell Morphology Comment See comments Chemistry Labs: Test 02/08/24 11:42 02/08/24 03:42 02/07/24 04:03 Range/Units Whole Blood Glucose 151 H 70-110 MG/DL Bedside Glucose Comment Notified Nurse Sodium Level 143 136-145 mmol/L Potassium Level 4.2 3.5-5.1 mmol/L Chloride Level 105 101-111 mmol/L Carbon Dioxide Level 22 21-32 mmol/L Blood Urea Nitrogen 40 H 7-18 mg/dL Creatinine 2.2 H 0.5-1.3 mg/dL Glomerular Filtration Rate Calc 28 >90 mL/min Random Glucose 122 H 70-105 mg/dL Total Calcium 8.7 8.5-10.1 mg/dL Magnesium Level 2.20 1.6-2.6 mg/dL Total Bilirubin 5.9 #H 0.2-1.0 mg/dL Aspartate Amino Transf (AST/SGOT) 86 H 10-37 U/L Alanine Aminotransferase (ALT/SGPT) 37 # 12-78 U/L Alkaline Phosphatase 141 H 50-136 U/L Total Protein 6.4 6.0-8.3 g/dL Albumin 3.0 L 3.5-5.0 g/dL Ammonia 18 11-32 umol/L DIAGNOSTICS / RADIOLOGY RESULTS: [ ] PLAN Tele to monitor Monitor electrolytes and replace accordingly Supplement O2 as needed to maintain saturations above 92% 6 minute walk before discharge Chest x-ray in a.m. Strict I&O and daily weights Hydralazine p.r.n. for hypertension Fluid restriction of 1.5 L a day Continue with aspirin, Eliquis Statin therapy Respiratory culture Influenza and COVID-19 swabs Melatonin 10 mg p.o. at night Reorient patient frequently, during the day keep light on. Thiamine and folic acid Empiric antibiotic treatment for CAP NEURO: Minimize central acting medications as possible. Maintain fall precautions, adequate lighting during the day PULMONARY: Supplemental 02 as needed. Maintain aspiration precautions at all times CARDIOVASCULAR: Follow hemodynamics. Vital signs per facility protocol GI & NUTRITION: Continue with nutritional support. Continue stool softeners and laxatives as needed. KIDNEYS & ELECTROLYTES: Strict monitoring of intake, output and overall fluid balance. Avoid nephrotoxic medications to the extent possible. Medications to be dosed according to renal function. Monitor electrolytes and replace as needed ENDOCRINE: Maintain blood glucose between 100-180 at all times. Hypoglycemia protocol in place INFECTIOUS DISEASE: Trend temperature, WBC and procalcitonin level Follow cultures, deescalate antibiotics as soon as possible. Panculture if new onset fever ONCOLOGY/HEMATOLOGY/COAGULATION: Monitor for s/s of bleeding Monitor hemoglobin, coagulation studies as needed SKIN: Pressure ulcer prevention per facility protocol Specialty mattress ORTHO/REHAB: Continue PT/OT Prophylaxis: Continue GI and DVT prophylaxis Code Status: Full Resuscitation Disposition: TBD Other: Total patient care time exceeds 35 minutes excluding all procedures. CRISTIN LUNA [facility] Feb 08, 2024 13:18
--- NOTE | 2024-02-08 13:54 | PN ---
[facility] PROGRESS NOTE Date of Service: Feb 08, 2024 Time of Service: 13:52 SUBJECTIVE: The patient has been seen and examined during my rounding, no acute events overnight, BP 114/70, afebrile, saturating normal on room air, he denied chest pain, shortness shortness for breath, no nausea, no vomiting, no abdominal discomfort. No family members at bedside during my visit. 02/06 the patient has been seen and examined during my rounding today, per my discussion with the nurse that is taking care of the patient, he became confused last night, during my visit sitter is at bedside, the patient following simple commands, but not agitated, not combative. is at bedside during my visit, updated. Results of HIDA scan reviewed, discussed with her. All questions ans wered. 02/07 the patient has been seen and examined during my rounding, no acute events overnight, the patient remains with bedside sitter. He is on multivitamin IV, he is still looks more hydrated and more awake today compared to yesterday, not agitated, not combative, he is able to tell me his name. No family members at bedside during my visit. BP 126/74, rest of the vital signs are unremarkable. REVIEW OF SYSTEMS CONSTITUTIONAL: Denies fevers, chills, or night sweats. No unintentional weight loss reported. NEUROLOGICAL: Denies headache, amaurosis fugax, motor weakness, sensory deficit, vertigo/spinning sensation, gait abnormalities, or tremors. ENT: No hearing loss, otalgia, otorrhea, rhinitis, rhinorrhea, hoarseness, or sore throat. CARDIOVASCULAR: Denies any exertional angina, dyspnea on exertion, orthopnea, paroxysmal nocturnal dyspnea, palpitations, life-threatening arrhythmias, claudication. PULMONARY: Positive shortness of breath Denies cough, phlegm/sputum, hemoptysis, pleuritic chest pain. SLEEP: Denies morning headaches, daytime somnolence or napping. Denies difficulty falling asleep, staying asleep, waking from sleep. Denies knowledge of snoring. GASTROINTESTINAL: Positive abdominal pain and diarrhea Denies any type of dysphagia to either liquids or solids. Denies nausea, vomiting, pyrosis, early satiety, constipation, or changes in stool consistency or caliber. Denies coffee-ground emesis, hematemesis, hematochezia, or melanotic stools. GENITOURINARY: Denies frequency, urgency, nocturia, hematuria or incontinence ( Storage/Irritative symptoms.) Low urinary stream, straining to void, urinary intermittency or hesitancy, splitting of the voiding stream, terminal dribbling. ENDOCRINOLOGIC: Denies polyuria, polydipsia, polyphagia or heat/cold intolerances. HEMATOLOGIC: Denies thrombophilia/previous clots, or coagulopathy/bleeding disorders. ONCOLOGIC: Denies personal history of malignancy. DERMATOLOGIC: Denies rashes or pruritus. PSYCHIATRIC: Denies any suicidal or homicidal ideation. Denies hallucinations. PHYSICAL EXAM GENERAL APPEARANCE: Resting comfortably in bed, less confused, dry oral mucosa noted. NEUROLOGICAL: Cranial nerves II-XII grossly intact. Motor is 5/5 in bilateral upper and lower extremities proximal to distal. No sensory deficits. HEENT: Face is symmetric. Pupils are equal and reactive. Extraocular movements are intact. NECK: Supple. No JVD. No thyromegaly. No submental, submandibular, pre- /postauricular, occipital or supraclavicular lymphadenopathy. CHEST: Normal chest expansion. No Telemetry. LUNGS: Absence of any rales, rhonchi or any wheezing. CARDIOVASCULAR: Regular. S1 and S2 normal. No appreciable rubs, murmurs or gallops. ABDOMEN: No rebound tenderness : Deferred. No Castañeda. EXTREMITIES: Trace edema to bilateral lower extremities SKIN: No skin breakdown. Vital Signs (last 8hr) Date Time Temp Pulse Resp B/P (MAP) Pulse Ox O2 Delivery O2 Flow Rate FiO2 02/08/24 11:00 98.6 100 20 126/74 95 Room Air 02/08/24 09:32 109 123/88 02/08/24 07:16 103 18 N/Cannula Low lpm 2.0 28 02/08/24 07:13 103 19 02/08/24 07:00 97.9 100 20 123/88 95 Room Air LABS: Laboratory: Test 02/08/24 11:42 02/08/24 03:42 02/08/24 03:30 02/07/24 04:03 Range/Units Whole Blood Glucose 151 H 70-110 MG/DL Bedside Glucose Comment Notified Nurse White Blood Count 10.3 # 4.8-10.8 K/uL Red Blood Count 4.17 L 4.50-6.20 MIL/uL Hemoglobin 12.0 L 14.0-18.0 g/dL Hematocrit 38.2 L 42-54 % Mean Corpuscular Volume 91.6 79-99 fL Mean Corpuscular Hemoglobin 28.8 27.0-33.0 pg Mean Corpuscular Hemoglobin Concent 31.4 L 32.0-36.0 g/dL Red Cell Distribution Width 19.8 H 11.0-15.5 % Platelet Count 184 130-400 K/uL Mean Platelet Volume 12.7 H 7.5-10.5 fL Immature Granulocyte % (Auto) 0.6 0-1 % Neutrophils (%) (Auto) 86.2 H 40.0-77.0 % Lymphocytes (%) (Auto) 7.2 L 21.0-51.0 % Monocytes (%) (Auto) 3.8 3.0-13.0 % Eosinophils (%) (Auto) 2.0 0.0-8.0 % Basophils (%) (Auto) 0.2 0.0-5.0 % Neutrophils # (Auto) 8.9 H 1.8-7.7 K/uL Lymphocytes # (Auto) 0.7 L 1.0-4.8 K/uL Monocytes # (Auto) 0.4 0.1-1.0 K/uL Eosinophils # (Auto) 0.21 0.00-0.70 K/uL Basophils # (Auto) 0.02 0.00-0.20 K/uL Absolute Immature Granulocyte (auto 0.06 0-1 K/uL Nucleated Red Blood Cells 0.4 H 0.0-0.19 % White Cell Morphology Comment See comments Sodium Level 143 136-145 mmol/L Potassium Level 4.2 3.5-5.1 mmol/L Chloride Level 105 101-111 mmol/L Carbon Dioxide Level 22 21-32 mmol/L Blood Urea Nitrogen 40 H 7-18 mg/dL Creatinine 2.2 H 0.5-1.3 mg/dL Glomerular Filtration Rate Calc 28 >90 mL/min Random Glucose 122 H 70-105 mg/dL Total Calcium 8.7 8.5-10.1 mg/dL Magnesium Level 2.20 1.6-2.6 mg/dL Total Bilirubin 5.9 #H 0.2-1.0 mg/dL Aspartate Amino Transf (AST/SGOT) 86 H 10-37 U/L Alanine Aminotransferase (ALT/SGPT) 37 # 12-78 U/L Alkaline Phosphatase 141 H 50-136 U/L Total Protein 6.4 6.0-8.3 g/dL Albumin 3.0 L 3.5-5.0 g/dL Influenza Type A Antigen Negative For Type A NEGATIVE Influenza Type B Antigen Negative For Type B NEGATIVE SARS-CoV-2 Antigen (Rapid) PRESUMPTIVE NEGATIVE NEGATIVE Ammonia 18 11-32 umol/L Current Medications Medications (Trade) Dose Ordered Sig/Trisha Route PRN Reason Start Time Stop Time Status Last Admin Dose Admin Acetaminophen (TYLenol 325MG TAB) 650 mg Q4H PRN PO MILD PAIN (1-3) 02/06/24 00:00 03/07/24 00:00 Acetaminophen (TYLenol 325MG TAB) 650 mg Q6H PRN PO TEMPERATURE GREATER THAN 101.5 02/06/24 00:00 03/07/24 00:00 Albuterol (DUOneb) 1 udvial [id number] IH 02/06/24 02:00 02/06/24 18:47 DC 02/06/24 18:41 1 UDVIAL Allopurinol (ZYLOprim 100MG) 200 mg DAILY PO 02/06/24 09:00 02/06/24 17:11 DC Apixaban (EliquIS 2.5 mg) 2.5 mg BID PO 02/06/24 09:00 02/07/24 07:24 DC 02/06/24 22:11 2.5 MG Aspirin (Aspirin 81mg Ec Tab) 81 mg DAILY PO 02/06/24 09:00 02/08/24 07:58 DC 02/07/24 09:23 81 MG Atorvastatin Calcium (LIPItor 20MG) 20 mg HS PO 02/06/24 21:00 03/07/24 20:59 02/07/24 20:44 20 MG Bumetanide (Bumex 1mg Tab) 2 mg BID PO 02/06/24 19:00 02/06/24 19:08 DC Bumetanide (Bumex 1mg Tab) 2 mg BID PO 02/07/24 09:00 02/06/24 19:12 DC Bumetanide (Bumex 1mg Tab) 2 mg DAILY PO 02/06/24 09:00 02/06/24 18:44 DC 02/06/24 09:06 2 MG Bumetanide (Bumex 1mg Vial) 1 mg BID IVP 02/07/24 06:00 02/08/24 07:58 DC 02/07/24 20:45 1 MG Chlordiazepoxide HCl (LIBrium 25 MG CAP) 25 mg Q2H PRN PO ALCOHOL WITHDRAWAL PROTOCOL 02/07/24 14:00 02/14/24 13:59 02/08/24 03:34 25 MG Chlordiazepoxide HCl (LIBrium 25 MG CAP) 50 mg Q1H PRN PO ALCOHOL WITHDRAWAL PROTOCOL 02/07/24 14:00 02/14/24 13:59 Doxycycline Hyclate 250 ml @ 125 mls/hr Q12H IV 02/06/24 12:00 02/16/24 11:59 02/08/24 12:38 125 MLS/HR Famotidine (Pepcid 20mg Vial) 20 mg DAILY IV 02/06/24 09:00 03/07/24 08:59 02/08/24 09:34 20 MG Folic Acid (FolVITE 5 MG/ML VIAL) 1 mg DAILY IV 02/08/24 09:00 03/09/24 08:59 02/08/24 09:32 1 MG Gabapentin (NEURontin 100 mg CAP) 100 mg BID PO 02/06/24 21:00 03/07/24 08:59 02/08/24 09:34 100 MG Gabapentin (NEURontin 100 mg CAP) 300 mg DAILY PO 02/06/24 09:00 02/06/24 18:47 DC 02/06/24 09:13 300 MG Hydralazine HCl (APRESOLine 20MG INJ) 10 mg Q6H PRN IV For:SBP above 160;DBP above 90 02/06/24 00:00 03/07/24 00:00 Ipratropium [place] (AtrovENT UD) 0.5 MG [id number] IH 02/06/24 22:00 03/07/24 21:59 02/08/24 07:13 0.5 MG Levothyroxine Sodium (SYNTHroid 50MCG TAB) 50 mcg SYN PO 02/06/24 06:30 03/07/24 06:29 02/08/24 05:47 50 MCG Lisinopril (Prinivil 5mg) 5 mg DAILY PO 02/07/24 09:00 02/07/24 07:35 DC Lorazepam (AtiVAN) 0.5 mg Q6H PRN PO ANXIETY/AGITATION 02/06/24 00:30 02/07/24 00:35 DC 02/06/24 22:11 0.5 MG Magnesium Sulfate 50 ml @ 0 mls/hr PROTOCOL PRN IV OTHER [SEE ORDER COMMENTS] 02/06/24 00:00 03/07/24 00:00 02/06/24 15:11 50 MLS/HR Magnesium Sulfate 50 ml @ 0 mls/hr PROTOCOL PRN IV LOW MAGNESIUM 02/06/24 07:00 02/06/24 17:11 DC Melatonin (Melatonin) 10 mg HS PO 02/07/24 21:00 03/08/24 20:59 02/07/24 21:08 10 MG Metoprolol Succinate (TopROL XL) 50 mg DAILY PO 02/06/24 09:00 03/07/24 08:59 02/06/24 09:05 50 MG Metoprolol Tartrate (loprESSOR) 10 mg AD PRN IV INCREASED HEART RATE 02/07/24 07:00 03/08/24 06:59 02/07/24 06:56 10 MG Metoprolol Tartrate (loprESSOR) 10 mg Q6H IV 02/07/24 08:00 03/08/24 07:59 02/08/24 09:32 10 MG Metronidazole/ Sodium Chloride 100 ml @ 100 mls/hr Q8H6 IVPB 02/06/24 06:00 02/06/24 11:43 DC 02/06/24 06:54 100 MLS/HR Montelukast Sodium (SinguLAIR) 10 mg HS PO 02/06/24 21:00 03/07/24 20:59 02/07/24 20:44 10 MG Multivitamins/ Minerals 10 ml/ Folic Acid 1 mg/ Thiamine HCl 100 mg/Sodium Chloride 1,010 ml @ 75 mls/hr DAILY IV 02/07/24 12:00 03/10/24 11:59 02/08/24 10:01 75 MLS/HR Nitroglycerin (Nitrostat) 0.4 mg AD SL 02/06/24 00:00 03/07/24 00:00 Ondansetron HCl (zoFRAN 4MG INJ) 4 mg Q6H PRN IV NAUSEA/VOMITING 02/06/24 00:00 03/07/24 00:00 Pharmacy Profile Note (Pharmacy Communication) 1 each PROTOCOL PRN MISC ETOH Withdrawal Score changes 02/07/24 14:00 02/07/24 13:44 DC Piperacillin Sod/ Tazobactam Sod (Zosyn 3.375gm+NS 50ml) 3.375 gm Q8H IV 02/06/24 14:00 02/16/24 13:59 02/08/24 06:48 3.375 GM Potassium Chloride 100 ml @ 50 mls/hr AD PRN IV POTASSIUM PROTOCOL 02/06/24 06:30 02/06/24 06:35 DC Potassium Chloride 100 ml @ 100 mls/hr AD PRN IV POTASSIUM PROTOCOL 02/06/24 00:00 02/06/24 06:34 DC 02/06/24 06:15 100 MLS/HR Potassium Chloride 100 ml @ 100 mls/hr AD PRN IV POTASSIUM PROTOCOL 02/06/24 06:30 03/07/24 06:29 Potassium Chloride (K-Dur 10meq Sr Tab) 10 meq DAILY PO 02/06/24 09:00 02/06/24 06:34 DC Potassium Chloride (K-Dur/Klor-Con 20meq) 20 meq AD PRN PO POTASSIUM PROTOCOL 02/06/24 06:30 03/07/24 06:29 Potassium Chloride (KCl 10% Elixir 20meq/15ml) 20 meq AD PRN PO POTASSIUM PROTOCOL 02/06/24 06:30 03/07/24 06:29 02/06/24 22:15 20 MEQ Prednisone (deltaSONE/ oraSONE 20MG TAB) 20 mg BID PO 02/06/24 21:00 02/07/24 20:54 DC 02/07/24 20:44 20 MG Ropinirole HCl (REquip) 1 mg BID PO 02/06/24 09:00 02/07/24 20:55 DC 02/07/24 20:44 1 MG Thiamine HCl (Vitamin B-1) 300 mg ONCE IVP 02/07/24 14:00 02/07/24 13:43 DC DIAGNOSTICS / RADIOLOGY: [ ] ASSESSMENT: Elevated troponin rule out ACS POA Acute on chronic CHF POA Acute respiratory failure POA Persistent atrial fibrillation POA Hypokalemia POA Intractable abdominal pain POA Suspected gastroenteritis POA Elevated liver enzymes POA Acute on chronic renal insufficiency POA Anemia POA Hypertension POA Hyperlipidemia POA Hypothyroidism POA Coronary artery disease with cardiac stent x4 POA History of aortic valve replacement POA AICD status POA PLAN: Remains admitted to the PCU Continue patient monitor Start clear liquid diet Cardiology consultation requested, input noted and appreciated HIDA scan unremarkable Continue aspirin 81 mg p.o. daily Continue on Famotidine 20 mg IV daily for GI prophylaxis We will replace electrolytes as needed per protocol Continue on insulin sliding scale AC & HS with hypoglycemia protocol Continue prn medication for fever,pain,nausea and vomiting Reconcile home meds Replace electrolytes IV per protocol GI and DVT prophylaxis Further orders to follow depending on above results Disposition: Patient remains admitted to the PCU, continue the patient on multivitamin IV, monitor mental status, CT head without contrast is unremarkable, we will continue with sitter at bedside. Echocardiogram right ventricular systolic function severely reduced. We will give a bolus of LR 250 mL, follow creatinine in a.m.. Total time spent greater than 30 minutes LAURA GRAJEDA MD Feb 08, 2024 13:54
[2024-02-08] MEDS ORDERED: metoPROLOL tartRATE 1 MG/ML 5ML VIAL IV PRN (14:00)
[2024-02-08] MEDS: cefTRIAXone 1G VIAL IVPB SCH (15:04)
[2024-02-08] MEDS: 0.9% NACL 250ML 250 ML IV ONE (15:04)
[2024-02-08] MEDS ORDERED: hydrALAZine 20MG/ML VIAL IV PRN (18:00)
[2024-02-09] VITALS (14 sets, daily range): BP systolic 97–125; BP diastolic 60–77; PULSE 77–102; RESP 18; TEMP 97.3–97.8; O2SAT 95–98
--- NOTE | 2024-02-09 00:34 | PN ---
PROBLEM LIST: 1. Cholelithiasis with distended gallbladder. 2. Acute on chronic diastolic CHF. 3. A 2D echo this admission with EF 50%-55%, stage 3 diastolic dysfunction, septal dyskinesis. 4. Minimally elevated troponin, likely a supply demand process. 5. Chronic atrial fibrillation. 6. Chronic Eliquis anticoagulation. 7. Coronary artery disease with a CABG and bioprosthetic AVR in 2009. 8. [employer] MRI-compatible pacemaker placed in 12/2021, [place], [place] (Luda XT device). 9. On 07/2022, Lexiscan demonstrating mid-distal anterior ischemia, mild in severity. 10. May-Thurner syndrome. 11. Severe bilateral venous insufficiency. 12. Hypothyroidism. 13. Crohn's disease. 14. Hard of hearing. 15. Dementia. 16. Aggressive behavior. 17. Acute renal failure. INTERVAL HISTORY: The patient is still not taking p.o. He is nonverbal and combative. Does not respond to questions. It does not appear there are plans to take him to Surgery. He has had adequate heart rate control on scheduled IV Lopressor. He has had a significant increase in his creatinine from 1.4 on admission up to 2.2. He is currently on Bumex 2 mg IV b.i.d. Home dose is 2 mg daily. The patient is also receiving Zosyn. No reports of fever or bleeding. PHYSICAL EXAMINATION: GENERAL: Confused, agitated, elderly male. VITAL SIGNS: Temperature 96, pulse 100, respirations 20, blood pressure 126/74. HEENT: Atraumatic. No nasal discharge. CARDIOVASCULAR: Difficult to auscultate due to lack of cooperation. Irregular, slightly tachycardic. No leg edema. RESPIRATORY: Again, lungs difficult to auscultate. GASTROINTESTINAL: No distention, no guarding. EXTREMITIES: No amputations. NEUROLOGIC/PSYCHIATRY: The patient is nonverbal, restless, but not aggressive at this time. LABORATORY DATA: Creatinine of 2.2, total bilirubin 5.7. H and H 12 and 38.2. PLAN: We will hold his Lasix as he is in some acute renal failure. This might also be due to the Zosyn. Continue scheduled IV Lopressor. Note yesterday, he was taking atorvastatin orally, but has been combative overnight. No further cardiac workup. He can be resumed on his home anticoagulant (Eliquis 2.5 b.i.d.) and his home metoprolol succinate 50 mg daily once he is taking p.o. It does not appear there are plans for surgery. We will follow from afar. Please reach out if any questions. TID: [id number] RECEIPT: [id number]
[2024-02-09 03:53] LABS: HEMATOCRIT 37.4 % (42-54); MEAN CORPUSCULAR HEMOGLOBIN 29.1 pg (27.0-33.0); MEAN CORPUSCULAR HGB CONC 30.5 g/dL (32.0-36.0); MEAN CORPUSCULAR VOLUME 95.4 fL (79-99); RED BLOOD CELL COUNT(AUTO) 3.92 MIL/uL (4.50-6.20); RED CELL DISTRIBUTION WIDTH 19.3 % (11.0-15.5); WHITE BLOOD COUNT (AUTO) 10.3 K/uL (4.8-10.8)
[2024-02-09 04:09] LABS: ALBUMIN 2.8 g/dL (3.5-5.0); BILIRUBIN,TOTAL 4.9 mg/dL (0.2-1.0); CREATININE 2.3 mg/dL (0.5-1.3); MAGNESIUM 2.2 mg/dL (1.80-2.40); POTASSIUM 3.4 mmol/L (3.5-5.1); TOTAL PROTEIN, SERUM 5.9 g/dL (6.0-8.3)
[2024-02-09] MEDS: tamSULOsin HCL 0.4 MG CAP.ER.24H PO ONE (05:52)
[2024-02-09] MEDS: PoTASSium chloRIDE 20MEQ ER 20 MEQ ERTAB PO ONE (09:50)
[2024-02-09] MEDS: M.V.I. IV [ADULT] 10 ML, FOLic ACID 5 MG/ML VIAL 1 MG, THIAMINE HCL 100 MG in 0.9%NACL ... IV SCH (09:51)
--- NOTE | 2024-02-09 10:34 | PN ---
GENERAL SURGERY PROGRESS NOTE Date/Time Patient Seen: 02/09/2024 10:00 a.m. Problem List: Abdominal pain Interval History: Patient reports no abdominal pain. He is tolerating clear liquids. No nausea or vomiting. No acute events reported by the nursing staff. Current Medications Medications (Trade) Dose Ordered Sig/Trisha Route Start Time Stop Time Status Last Admin Dose Admin Albuterol (DUOneb) 1 udvial [id number] IH 02/06/24 02:00 02/06/24 18:47 DC 02/06/24 18:41 1 UDVIAL Allopurinol (ZYLOprim 100MG) 200 mg DAILY PO 02/06/24 09:00 02/06/24 17:11 DC Apixaban (EliquIS 2.5 mg) 2.5 mg BID PO 02/06/24 09:00 02/07/24 07:24 DC 02/06/24 22:11 2.5 MG Aspirin (Aspirin 81mg Ec Tab) 81 mg DAILY PO 02/06/24 09:00 02/08/24 07:58 DC 02/07/24 09:23 81 MG Atorvastatin Calcium (LIPItor 20MG) 20 mg HS PO 02/06/24 21:00 03/07/24 20:59 02/08/24 20:45 20 MG Azithromycin 250 ml @ 250 mls/hr Q24H IVPB 02/09/24 12:00 02/19/24 11:59 Bumetanide (Bumex 1mg Tab) 2 mg BID PO 02/06/24 19:00 02/06/24 19:08 DC Bumetanide (Bumex 1mg Tab) 2 mg BID PO 02/07/24 09:00 02/06/24 19:12 DC Bumetanide (Bumex 1mg Tab) 2 mg DAILY PO 02/06/24 09:00 02/06/24 18:44 DC 02/06/24 09:06 2 MG Bumetanide (Bumex 1mg Vial) 1 mg BID IVP 02/07/24 06:00 02/08/24 07:58 DC 02/07/24 20:45 1 MG Ceftriaxone Sodium (ROCEphine 1G INJ) 1 gm Q24H IVPB 02/08/24 14:00 02/18/24 13:59 02/08/24 15:04 1 GM Doxycycline Hyclate 250 ml @ 125 mls/hr Q12H IV 02/06/24 12:00 02/08/24 14:05 DC 02/08/24 12:38 125 MLS/HR Famotidine (Pepcid 20mg Vial) 20 mg DAILY IV 02/06/24 09:00 03/07/24 08:59 02/09/24 09:49 20 MG Folic Acid (FolVITE 5 MG/ML VIAL) 1 mg DAILY IV 02/08/24 09:00 03/09/24 08:59 02/09/24 10:20 1 MG Gabapentin (NEURontin 100 mg CAP) 100 mg BID PO 02/06/24 21:00 03/07/24 08:59 02/09/24 09:50 100 MG Gabapentin (NEURontin 100 mg CAP) 300 mg DAILY PO 02/06/24 09:00 02/06/24 18:47 DC 02/06/24 09:13 300 MG Ipratropium [place] (AtrovENT UD) 0.5 MG [id number] IH 02/06/24 22:00 03/07/24 21:59 02/09/24 07:09 0.5 MG Levothyroxine Sodium (SYNTHroid 50MCG TAB) 50 mcg SYN PO 02/06/24 06:30 03/07/24 06:29 02/09/24 05:52 50 MCG Lisinopril (Prinivil 5mg) 5 mg DAILY PO 02/07/24 09:00 02/07/24 07:35 DC Melatonin (Melatonin) 10 mg HS PO 02/07/24 21:00 03/08/24 20:59 02/08/24 20:45 10 MG Metoprolol Succinate (TopROL XL) 50 mg DAILY PO 02/06/24 09:00 03/07/24 08:59 02/09/24 09:50 50 MG Metoprolol Tartrate (loprESSOR) 10 mg Q6H IV 02/07/24 08:00 02/08/24 13:58 DC 02/08/24 09:32 10 MG Metronidazole/ Sodium Chloride 100 ml @ 100 mls/hr Q8H6 IVPB 02/06/24 06:00 02/06/24 11:43 DC 02/06/24 06:54 100 MLS/HR Montelukast Sodium (SinguLAIR) 10 mg HS PO 02/06/24 21:00 03/07/24 20:59 02/08/24 20:45 10 MG Multivitamins/ Minerals 10 ml/ Folic Acid 1 mg/ Thiamine HCl 100 mg/Sodium Chloride 1,010 ml @ 75 mls/hr DAILY IV 02/07/24 12:00 02/08/24 13:58 DC 02/08/24 10:01 75 MLS/HR Multivitamins/ Minerals 10 ml/ Folic Acid 1 mg/ Thiamine HCl 100 mg/Sodium Chloride 1,010 ml @ 75 mls/hr DAILY IV 02/09/24 09:00 02/11/24 08:59 02/09/24 09:51 75 MLS/HR Nitroglycerin (Nitrostat) 0.4 mg AD SL 02/06/24 00:00 03/07/24 00:00 Piperacillin Sod/ Tazobactam Sod (Zosyn 3.375gm+NS 50ml) 3.375 gm Q8H IV 02/06/24 14:00 02/08/24 13:58 DC 02/08/24 06:48 3.375 GM Potassium Chloride (K-Dur 10meq Sr Tab) 10 meq DAILY PO 02/06/24 09:00 02/06/24 06:34 DC Prednisone (deltaSONE/ oraSONE 20MG TAB) 20 mg BID PO 02/06/24 21:00 02/07/24 20:54 DC 02/07/24 20:44 20 MG Ropinirole HCl (REquip) 1 mg BID PO 02/06/24 09:00 02/07/24 20:55 DC 02/07/24 20:44 1 MG Tamsulosin HCl (FloMAX) 0.4 mg DAILY PO 02/09/24 21:00 03/10/24 20:59 Thiamine HCl (Vitamin B-1) 300 mg ONCE IVP 02/07/24 14:00 02/07/24 13:43 DC Physical Examination: GENERAL: No acute distress. HEAD: Normal with no signs of head trauma. LUNGS: Respirations nonlabored HEART: Regular rate and rhythm ABD: Soft, nondistended, nontender, no rebound, no guarding Vital Signs (last 8hr) Date Time Temp Pulse Resp B/P (MAP) Pulse Ox O2 Delivery O2 Flow Rate FiO2 02/09/24 07:19 97.3 83 18 125/76 96 Nasal Cannula 2.0 02/09/24 07:11 88 18 02/09/24 07:10 18 N/Cannula Low lpm 2.0 28 02/09/24 06:00 97.9 98 18 110/68 92 Nasal Cannula 02/09/24 03:08 97.9 102 18 103/66 97 Nasal Cannula Laboratory: Hematology Labs: Test 02/09/24 03:08 02/08/24 03:42 Range/Units White Blood Count 10.3 4.8-10.8 K/uL Red Blood Count 3.92 L 4.50-6.20 MIL/uL Hemoglobin 11.4 L 14.0-18.0 g/dL Hematocrit 37.4 L 42-54 % Mean Corpuscular Volume 95.4 79-99 fL Mean Corpuscular Hemoglobin 29.1 27.0-33.0 pg Mean Corpuscular Hemoglobin Concent 30.5 L 32.0-36.0 g/dL Red Cell Distribution Width 19.3 H 11.0-15.5 % Platelet Count 157 130-400 K/uL Mean Platelet Volume 12.7 H 7.5-10.5 fL Nucleated Red Blood Cells 0.0 0.0-0.19 % Immature Granulocyte % (Auto) 0.6 0-1 % Neutrophils (%) (Auto) 86.2 H 40.0-77.0 % Lymphocytes (%) (Auto) 7.2 L 21.0-51.0 % Monocytes (%) (Auto) 3.8 3.0-13.0 % Eosinophils (%) (Auto) 2.0 0.0-8.0 % Basophils (%) (Auto) 0.2 0.0-5.0 % Neutrophils # (Auto) 8.9 H 1.8-7.7 K/uL Lymphocytes # (Auto) 0.7 L 1.0-4.8 K/uL Monocytes # (Auto) 0.4 0.1-1.0 K/uL Eosinophils # (Auto) 0.21 0.00-0.70 K/uL Basophils # (Auto) 0.02 0.00-0.20 K/uL Absolute Immature Granulocyte (auto 0.06 0-1 K/uL White Cell Morphology Comment See comments Chemistry Labs: Test 02/09/24 03:08 02/08/24 19:48 02/08/24 11:42 Range/Units Sodium Level 143 136-145 mmol/L Potassium Level 3.4 L 3.5-5.1 mmol/L Chloride Level 105 101-111 mmol/L Carbon Dioxide Level 26 21-32 mmol/L Blood Urea Nitrogen 51 H 7-18 mg/dL Creatinine 2.3 H 0.5-1.3 mg/dL Glomerular Filtration Rate Calc 27 >90 mL/min Random Glucose 92 70-105 mg/dL Total Calcium 8.3 L 8.5-10.1 mg/dL Magnesium Level 2.20 1.80-2.40 mg/dL Total Bilirubin 4.9 H 0.2-1.0 mg/dL Aspartate Amino Transf (AST/SGOT) 73 H 10-37 U/L Alanine Aminotransferase (ALT/SGPT) 47 # 12-78 U/L Alkaline Phosphatase 117 50-136 U/L Total Protein 5.9 L 6.0-8.3 g/dL Albumin 2.8 L 3.5-5.0 g/dL Whole Blood Glucose 118 H 70-110 MG/DL Bedside Glucose Comment Notified Nurse Diagnostics / Radiology: No new imaging Impression and Plan: This is an 84-year-old male that was brought to the hospital for left upper quadrant abdominal pain this appears to have resolved. The patient also has hyperbilirubinemia and elevations in his liver function tests. All the imaging we have thus far does not indicate any dilatation of the intra or extrahepatic biliary tree. Etiology is unclear. Patient did have a negative HIDA scan which indicates that the gallbladder is not the source. No acute operative intervention indicated. Patient may benefit from GI consult to assist in determining if this is a hepatocellular cause or other obstructive process. Surgery will sign off. Please call with any questions or concerns. Patient is okay to advance diet as tolerated. ALICIA NEW DO Feb 09, 2024 10:34
--- NOTE | 2024-02-09 11:20 | PN ---
[facility] PROGRESS NOTE Date of Service: Feb 09, 2024 Time of Service: 11:17 SUBJECTIVE: The patient has been seen and examined during my rounding, no acute events overnight, BP 114/70, afebrile, saturating normal on room air, he denied chest pain, shortness shortness for breath, no nausea, no vomiting, no abdominal discomfort. No family members at bedside during my visit. 02/06 the patient has been seen and examined during my rounding today, per my discussion with the nurse that is taking care of the patient, he became confused last night, during my visit sitter is at bedside, the patient following simple commands, but not agitated, not combative. is at bedside during my visit, updated. Results of HIDA scan reviewed, discussed with her. All questions ans wered. 02/07 the patient has been seen and examined during my rounding, no acute events overnight, the patient remains with bedside sitter. He is on multivitamin IV, he is still looks more hydrated and more awake today compared to yesterday, not agitated, not combative, he is able to tell me his name. No family members at bedside during my visit. BP 126/74, rest of the vital signs are unremarkable. 02/08 the patient has been seen and examined during my rounding, no acute events overnight, he is sitting comfortably in the chair, getting multivitamin IV, he is more awake, following more commands, cooperating well, not agitated, he is no longer requiring a bedside sitter. BP 97/60, rest of the vital signs are unremarkable, no family members at bedside during my visit. REVIEW OF SYSTEMS CONSTITUTIONAL: Denies fevers, chills, or night sweats. No unintentional weight loss reported. NEUROLOGICAL: Denies headache, amaurosis fugax, motor weakness, sensory deficit, vertigo/spinning sensation, gait abnormalities, or tremors. ENT: No hearing loss, otalgia, otorrhea, rhinitis, rhinorrhea, hoarseness, or sore throat. CARDIOVASCULAR: Denies any exertional angina, dyspnea on exertion, orthopnea, paroxysmal nocturnal dyspnea, palpitations, life-threatening arrhythmias, claudication. PULMONARY: Positive shortness of breath Denies cough, phlegm/sputum, hemoptysis, pleuritic chest pain. SLEEP: Denies morning headaches, daytime somnolence or napping. Denies difficulty falling asleep, staying asleep, waking from sleep. Denies knowledge of snoring. GASTROINTESTINAL: Positive abdominal pain and diarrhea Denies any type of dysphagia to either liquids or solids. Denies nausea, vomiting, pyrosis, early satiety, constipation, or changes in stool consistency or caliber. Denies coffee-ground emesis, hematemesis, hematochezia, or melanotic stools. GENITOURINARY: Denies frequency, urgency, nocturia, hematuria or incontinence (Storage/Irritative symptoms.) Low urinary stream, straining to void, urinary intermittency or hesitancy, splitting of the voiding stream, terminal dribbling. ENDOCRINOLOGIC: Denies polyuria, polydipsia, polyphagia or heat/cold intoler ances. HEMATOLOGIC: Denies thrombophilia/previous clots, or coagulopathy/bleeding disorders. ONCOLOGIC: Denies personal history of malignancy. DERMATOLOGIC: Denies rashes or pruritus. PSYCHIATRIC: Denies any suicidal or homicidal ideation. Denies hallucinations. PHYSICAL EXAM GENERAL APPEARANCE: Resting comfortably in bed, less confused, dry oral mucosa noted. NEUROLOGICAL: Cranial nerves II-XII grossly intact. Motor is 5/5 in bilateral upper and lower extremities proximal to distal. No sensory deficits. HEENT: Face is symmetric. Pupils are equal and reactive. Extraocular movements are intact. NECK: Supple. No JVD. No thyromegaly. No submental, submandibular, pre- /postauricular, occipital or supraclavicular lymphadenopathy. CHEST: Normal chest expansion. No Telemetry. LUNGS: Absence of any rales, rhonchi or any wheezing. CARDIOVASCULAR: Regular. S1 and S2 normal. No appreciable rubs, murmurs or gallops. ABDOMEN: No rebound tenderness : Deferred. No Castañeda. EXTREMITIES: Trace edema to bilateral lower extremities SKIN: No skin breakdown. Vital Signs (last 8hr) Date Time Temp Pulse Resp B/P (MAP) Pulse Ox O2 Delivery O2 Flow Rate FiO2 02/09/24 10:47 97.7 97 18 97/60 100 Nasal Cannula 2.0 02/09/24 08:00 98 Nasal Cannula* 2 28 02/09/24 07:19 97.3 83 18 125/76 96 Nasal Cannula 2.0 02/09/24 07:11 88 18 02/09/24 07:10 18 N/Cannula Low lpm 2.0 28 02/09/24 06:00 97.9 98 18 110/68 92 Nasal Cannula LABS: Laboratory: Test 02/09/24 08:00 02/09/24 03:08 02/08/24 19:48 02/08/24 11:42 Range/Units Stool Occult Blood POSITIVE H NEGATIVE White Blood Count 10.3 4.8-10.8 K/uL Red Blood Count 3.92 L 4.50-6.20 MIL/uL Hemoglobin 11.4 L 14.0-18.0 g/dL Hematocrit 37.4 L 42-54 % Mean Corpuscular Volume 95.4 79-99 fL Mean Corpuscular Hemoglobin 29.1 27.0-33.0 pg Mean Corpuscular Hemoglobin Concent 30.5 L 32.0-36.0 g/dL Red Cell Distribution Width 19.3 H 11.0-15.5 % Platelet Count 157 130-400 K/uL Mean Platelet Volume 12.7 H 7.5-10.5 fL Nucleated Red Blood Cells 0.0 0.0-0.19 % Sodium Level 143 136-145 mmol/L Potassium Level 3.4 L 3.5-5.1 mmol/L Chloride Level 105 101-111 mmol/L Carbon Dioxide Level 26 21-32 mmol/L Blood Urea Nitrogen 51 H 7-18 mg/dL Creatinine 2.3 H 0.5-1.3 mg/dL Glomerular Filtration Rate Calc 27 >90 mL/min Random Glucose 92 70-105 mg/dL Total Calcium 8.3 L 8.5-10.1 mg/dL Magnesium Level 2.20 1.80-2.40 mg/dL Total Bilirubin 4.9 H 0.2-1.0 mg/dL Aspartate Amino Transf (AST/SGOT) 73 H 10-37 U/L Alanine Aminotransferase (ALT/SGPT) 47 # 12-78 U/L Alkaline Phosphatase 117 50-136 U/L Total Protein 5.9 L 6.0-8.3 g/dL Albumin 2.8 L 3.5-5.0 g/dL Whole Blood Glucose 118 H 70-110 MG/DL Bedside Glucose Comment Notified Nurse Test 02/08/24 03:42 02/08/24 03:30 Range/Units Immature Granulocyte % (Auto) 0.6 0-1 % Neutrophils (%) (Auto) 86.2 H 40.0-77.0 % Lymphocytes (%) (Auto) 7.2 L 21.0-51.0 % Monocytes (%) (Auto) 3.8 3.0-13.0 % Eosinophils (%) (Auto) 2.0 0.0-8.0 % Basophils (%) (Auto) 0.2 0.0-5.0 % Neutrophils # (Auto) 8.9 H 1.8-7.7 K/uL Lymphocytes # (Auto) 0.7 L 1.0-4.8 K/uL Monocytes # (Auto) 0.4 0.1-1.0 K/uL Eosinophils # (Auto) 0.21 0.00-0.70 K/uL Basophils # (Auto) 0.02 0.00-0.20 K/uL Absolute Immature Granulocyte (auto 0.06 0-1 K/uL White Cell Morphology Comment See comments Influenza Type A Antigen Negative For Type A NEGATIVE Influenza Type B Antigen Negative For Type B NEGATIVE SARS-CoV-2 Antigen (Rapid) PRESUMPTIVE NEGATIVE NEGATIVE Current Medications Medications (Trade) Dose Ordered Sig/Trisha Route PRN Reason Start Time Stop Time Status Last Admin Dose Admin Acetaminophen (TYLenol 325MG TAB) 650 mg Q4H PRN PO MILD PAIN (1-3) 02/06/24 00:00 03/07/24 00:00 Acetaminophen (TYLenol 325MG TAB) 650 mg Q6H PRN PO TEMPERATURE GREATER THAN 101.5 02/06/24 00:00 03/07/24 00:00 Albuterol (DUOneb) 1 udvial [id number] 02/06/24 02:00 02/06/24 18:47 CO 02/06/24 18:41 1 UDVIAL Allopurinol (ZYLOprim 100MG) 200 mg DAILY PO 02/06/24 09:00 02/06/24 17:11 DC Apixaban (EliquIS 2.5 mg) 2.5 mg BID PO 02/06/24 09:00 02/07/24 07:24 DC 02/06/24 22:11 2.5 MG Apixaban (EliquIS 2.5 mg) 2.5 mg BID PO 02/09/24 21:00 03/10/24 20:59 Aspirin (Aspirin 81mg Ec Tab) 81 mg DAILY PO 02/06/24 09:00 02/08/24 07:58 DC 02/07/24 09:23 81 MG Atorvastatin Calcium (LIPItor 20MG) 20 mg HS PO 02/06/24 21:00 03/07/24 20:59 02/08/24 20:45 20 MG Azithromycin 250 ml @ 250 mls/hr Q24H IVPB 02/09/24 12:00 02/19/24 11:59 Bumetanide (Bumex 1mg Tab) 2 mg BID PO 02/06/24 19:00 02/06/24 19:08 DC Bumetanide (Bumex 1mg Tab) 2 mg BID PO 02/07/24 09:00 02/06/24 19:12 DC Bumetanide (Bumex 1mg Tab) 2 mg DAILY PO 02/06/24 09:00 02/06/24 18:44 DC 02/06/24 09:06 2 MG Bumetanide (Bumex 1mg Vial) 1 mg BID IVP 02/07/24 06:00 02/08/24 07:58 DC 02/07/24 20:45 1 MG Ceftriaxone Sodium (ROCEphine 1G INJ) 1 gm Q24H IVPB 02/08/24 14:00 02/18/24 13:59 02/08/24 15:04 1 GM Chlordiazepoxide HCl (LIBrium 25 MG CAP) 25 mg Q2H PRN PO ALCOHOL WITHDRAWAL PROTOCOL 02/07/24 14:00 02/08/24 13:58 DC 02/08/24 03:34 25 MG Chlordiazepoxide HCl (LIBrium 25 MG CAP) 50 mg Q1H PRN PO ALCOHOL WITHDRAWAL PROTOCOL 02/07/24 14:00 02/08/24 13:58 DC Doxycycline Hyclate 250 ml @ 125 mls/hr Q12H IV 02/06/24 12:00 02/08/24 14:05 DC 02/08/24 12:38 125 MLS/HR Famotidine (Pepcid 20mg Vial) 20 mg DAILY IV 02/06/24 09:00 03/07/24 08:59 02/09/24 09:49 20 MG Folic Acid (FolVITE 5 MG/ML VIAL) 1 mg DAILY IV 02/08/24 09:00 03/09/24 08:59 02/09/24 10:20 1 MG Gabapentin (NEURontin 100 mg CAP) 100 mg BID PO 02/06/24 21:00 03/07/24 08:59 02/09/24 09:50 100 MG Gabapentin (NEURontin 100 mg CAP) 300 mg DAILY PO 02/06/24 09:00 02/06/24 18:47 DC 02/06/24 09:13 300 MG Hydralazine HCl (APRESOLine 20MG INJ) 5 mg Q6H PRN IV For:SBP above 160;DBP above 90 02/08/24 18:00 03/09/24 17:59 Hydralazine HCl (APRESOLine 20MG INJ) 10 mg Q6H PRN IV For:SBP above 160;DBP above 90 02/06/24 00:00 02/08/24 13:58 DC Ipratropium Olpe (AtrovENT UD) 0.5 MG P8SDHAN IH 02/06/24 22:00 03/07/24 21:59 02/09/24 07:09 0.5 MG Levothyroxine Sodium (SYNTHroid 50MCG TAB) 50 mcg SYN PO 02/06/24 06:30 03/07/24 06:29 02/09/24 05:52 50 MCG Lisinopril (Prinivil 5mg) 5 mg DAILY PO 02/07/24 09:00 02/07/24 07:35 DC Lorazepam (AtiVAN) 0.5 mg Q6H PRN PO ANXIETY/AGITATION 02/06/24 00:30 02/07/24 00:35 DC 02/06/24 22:11 0.5 MG Magnesium Sulfate 50 ml @ 0 mls/hr PROTOCOL PRN IV OTHER [SEE ORDER COMMENTS] 02/06/24 00:00 03/07/24 00:00 02/06/24 15:11 50 MLS/HR Magnesium Sulfate 50 ml @ 0 mls/hr PROTOCOL PRN IV LOW MAGNESIUM 02/06/24 07:00 02/06/24 17:11 DC Melatonin (Melatonin) 10 mg HS PO 02/07/24 21:00 03/08/24 20:59 02/08/24 20:45 10 MG Metoprolol Succinate (TopROL XL) 50 mg DAILY PO 02/06/24 09:00 03/07/24 08:59 02/09/24 09:50 50 MG Metoprolol Tartrate (loprESSOR) 5 mg AD PRN IV INCREASED HEART RATE 02/08/24 14:00 03/09/24 13:59 Metoprolol Tartrate (loprESSOR) 10 mg AD PRN IV INCREASED HEART RATE 02/07/24 07:00 02/08/24 13:58 DC 02/07/24 06:56 10 MG Metoprolol Tartrate (loprESSOR) 10 mg Q6H IV 02/07/24 08:00 02/08/24 13:58 DC 02/08/24 09:32 10 MG Metronidazole/ Sodium Chloride 100 ml @ 100 mls/hr Q8H6 IVPB 02/06/24 06:00 02/06/24 11:43 DC 02/06/24 06:54 100 MLS/HR Montelukast Sodium (SinguLAIR) 10 mg HS PO 02/06/24 21:00 03/07/24 20:59 02/08/24 20:45 10 MG Multivitamins/ Minerals 10 ml/ Folic Acid 1 mg/ Thiamine HCl 100 mg/Sodium Chloride 1,010 ml @ 75 mls/hr DAILY IV 02/07/24 12:00 02/08/24 13:58 DC 02/08/24 10:01 75 MLS/HR Multivitamins/ Minerals 10 ml/ Folic Acid 1 mg/ Thiamine HCl 100 mg/Sodium Chloride 1,010 ml @ 75 mls/hr DAILY IV 02/09/24 09:00 02/11/24 08:59 02/09/24 09:51 75 MLS/HR Nitroglycerin (Nitrostat) 0.4 mg AD SL 02/06/24 00:00 03/07/24 00:00 Ondansetron HCl (zoFRAN 4MG INJ) 4 mg Q6H PRN IV NAUSEA/VOMITING 02/06/24 00:00 03/07/24 00:00 Pharmacy Profile Note (Pharmacy Communication) 1 each PROTOCOL PRN MISC ETOH Withdrawal Score changes 02/07/24 14:00 02/07/24 13:44 DC Piperacillin Sod/ Tazobactam Sod (Zosyn 3.375gm+NS 50ml) 3.375 gm Q8H IV 02/06/24 14:00 02/08/24 13:58 DC 02/08/24 06:48 3.375 GM Potassium Chloride 100 ml @ 50 mls/hr AD PRN IV POTASSIUM PROTOCOL 02/06/24 06:30 02/06/24 06:35 DC Potassium Chloride 100 ml @ 100 mls/hr AD PRN IV POTASSIUM PROTOCOL 02/06/24 00:00 02/06/24 06:34 DC 02/06/24 06:15 100 MLS/HR Potassium Chloride 100 ml @ 100 mls/hr AD PRN IV POTASSIUM PROTOCOL 02/06/24 06:30 03/07/24 06:29 Potassium Chloride (K-Dur 10meq Sr Tab) 10 meq DAILY PO 02/06/24 09:00 02/06/24 06:34 DC Potassium Chloride (K-Dur/Klor-Con 20meq) 20 meq AD PRN PO POTASSIUM PROTOCOL 02/06/24 06:30 03/07/24 06:29 Potassium Chloride (KCl 10% Elixir 20meq/15ml) 20 meq AD PRN PO POTASSIUM PROTOCOL 02/06/24 06:30 03/07/24 06:29 02/06/24 22:15 20 MEQ Prednisone (deltaSONE/ oraSONE 20MG TAB) 20 mg BID PO 02/06/24 21:00 02/07/24 20:54 DC 02/07/24 20:44 20 MG Ropinirole HCl (REquip) 1 mg BID PO 02/06/24 09:00 02/07/24 20:55 DC 02/07/24 20:44 1 MG Tamsulosin HCl (FloMAX) 0.4 mg DAILY PO 02/09/24 21:00 03/10/24 20:59 Thiamine HCl (Vitamin B-1) 300 mg ONCE IVP 02/07/24 14:00 02/07/24 13:43 DC DIAGNOSTICS / RADIOLOGY: [ ] ASSESSMENT: Elevated troponin rule out ACS POA Acute on chronic CHF POA Acute respiratory failure POA Persistent atrial fibrillation POA Hypokalemia POA Intractable abdominal pain POA Suspected gastroenteritis POA Elevated liver enzymes POA Acute on chronic renal insufficiency POA Anemia POA Hypertension POA Hyperlipidemia POA Hypothyroidism POA Coronary artery disease with cardiac stent x4 POA History of aortic valve replacement POA AICD status POA PLAN: We will downgraded the patient to the medical floor Continue cardiac monitor Continue diet advanced as tolerated Cardiology consultation requested, input noted and appreciated HIDA scan unremarkable Continue aspirin 81 mg p.o. daily Continue on Famotidine 20 mg IV daily for GI prophylaxis We will replace electrolytes as needed per protocol Continue on insulin sliding scale AC & HS with hypoglycemia protocol Continue prn medication for fever,pain,nausea and vomiting Reconcile home meds Replace electrolytes IV per protocol GI and DVT prophylaxis Further orders to follow depending on above results Disposition: The patient to be downgraded to the medical floor, continue with multivitamin IV, noted to have worsening renal function today, nephrology consultation requested, follow input and recommendations. We will get PT to evaluate the patient, a.m. labs. No family members at bedside to discuss goals of care. Total PCU time spent greater than 30 minutes LAURA GRAJEDA MD Feb 09, 2024 11:19
[2024-02-09] MEDS: AZITHROMYCIN 500MG+NS 250ML 250 ML IVPB SCH (12:07)
--- NOTE | 2024-02-09 12:30 | PN ---
[facility] PROGRESS NOTE Date Patient Seen: Feb 09, 2024 Time of Visit: 12:30 Supervising Physician: Mehdi Soto MD Primary Care Physician: Kevin Doyle MD Outpatient Specialists: Inpatient Consults: Dr Desean Gama MD, LUTHER Carrasco Attending physician: Daniel Chang MD PROBLEM LIST: Acute hypoxic respiratory failure, POA, resolving Acute metabolic encephalopathy, POA, resolving Elevated troponin, POA Acute on chronic CHF POA EF 50-55% stage III diastolic dysfunction on 2D echo Suspected CAP, POA Chronic atrial fibrillation on chronic anticoagulation with Eliquis, POA Hypokalemia POA Intractable abdominal pain POA Gallstones in the distended gallbladder, POA on ultrasound 02/06/24 Bilateral renal cysts, POA 02/06/24 Cardiomegaly, POA Elevated liver enzymes POA Liver parenchymal disease, POA ALVINO on CKD, POA Normocytic Anemia POA Thrombocytopenia, not POA Hypertension POA Hyperlipidemia POA Hypothyroidism POA CAD s/p CABG in 2009, with bioprosthetic aortic valve replacement History of aortic valve replacement POA s/p [employer] [place] XT NSR MRI [id number] VVIR pacemaker implantation in [place], [place] S/p [place] 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 Overnight became increasingly aggressive. CT of the head was performed and negative for any intracranial bleeding or acute processes. Shows atrophy with white matter changes. He is hemodynamically stable AFib in the 90s on tele monitor. O2 saturation 98% on 2 L via nasal cannula. Started patient on thiamine and folic acid IV given his history of drinking wine daily. Patient on CIWA protocol. We will continue to wean O2 as tolerated to maintain O2 sats above 92%. We will continue to wean Bumex as needed. 02/07-patient is awake alert and oriented to name and place. Patient has not been aggressive today. Improving in mental status. H&H is 12/38.2 today platelet count is normal neutrophils 86.2. Chemistry creatinine is 2.2 and GFR is 28 decreased from yesterday. Albumin 3.0. Patient continues on antibiotics for CAP is Rocephin and azithromycin. Plan and respiratory cultures. Patient has been hemodynamically stable afebrile 92 % on bedside monitor without O2 at room air. We will need to 6 minute walk to assess home O2 needs prior to discharge 02/08-patient is awake alert and oriented x2. Cooperative no longer aggressive. Sitting up in chair and holding conversation with his . No sitter at bedside needed. Patient is hemodynamically stable in no apparent distress saturating 95% on room air. Patient failed 6 minute walk so we will likely need home arrangement for O2 if discharged home in the next 24-48 hours. I have recommended patient [facility] and [facility]. As per patient and significant other they will think about it. Disposition per primary. Otherwise CBC similar to yesterday. Sodium 143 potassium 3.4 covered per protocol BUN 51 creatinine 2.3 GFR of 27. Since to be stabilized kidney function. Calcium 8.3 magnesium two point 20s total bili 4.9 improving AST 73, total protein 5.9 albumin 2.8. REVIEW OF SYSTEMS: Unable to obtain due to patient confused. PHYSICAL EXAM: GENERAL: alert, awake generalized weakness oriented to name HEENT: EOMI, Sclera non icteric, moist mucosa NECK: Supple, no JVD, trachea midline LUNGS: Diminished breath sounds bilaterally. wheezes HEART: Regular rate and rhythm. Normal S1 and S2, without murmurs ABD: Abdomen soft, nontender. Bowel sounds present EXT: No clubbing cyanosis or edema NEURO: Alert and oriented to person, follows commands Vital Signs (last 8hr) Date Time Temp Pulse Resp B/P (MAP) Pulse Ox O2 Delivery O2 Flow Rate FiO2 02/09/24 10:47 97.7 97 18 97/60 100 Nasal Cannula 2.0 02/09/24 08:00 98 Nasal Cannula* 2 28 02/09/24 07:19 97.3 83 18 125/76 96 Nasal Cannula 2.0 02/09/24 07:11 88 18 02/09/24 07:10 18 N/Cannula Low lpm 2.0 28 02/09/24 06:00 97.9 98 18 110/68 92 Nasal Cannula LABS: Hematology Labs: Test 02/09/24 03:08 02/08/24 03:42 Range/Units White Blood Count 10.3 4.8-10.8 K/uL Red Blood Count 3.92 L 4.50-6.20 MIL/uL Hemoglobin 11.4 L 14.0-18.0 g/dL Hematocrit 37.4 L 42-54 % Mean Corpuscular Volume 95.4 79-99 fL Mean Corpuscular Hemoglobin 29.1 27.0-33.0 pg Mean Corpuscular Hemoglobin Concent 30.5 L 32.0-36.0 g/dL Red Cell Distribution Width 19.3 H 11.0-15.5 % Platelet Count 157 130-400 K/uL Mean Platelet Volume 12.7 H 7.5-10.5 fL Nucleated Red Blood Cells 0.0 0.0-0.19 % Immature Granulocyte % (Auto) 0.6 0-1 % Neutrophils (%) (Auto) 86.2 H 40.0-77.0 % Lymphocytes (%) (Auto) 7.2 L 21.0-51.0 % Monocytes (%) (Auto) 3.8 3.0-13.0 % Eosinophils (%) (Auto) 2.0 0.0-8.0 % Basophils (%) (Auto) 0.2 0.0-5.0 % Neutrophils # (Auto) 8.9 H 1.8-7.7 K/uL Lymphocytes # (Auto) 0.7 L 1.0-4.8 K/uL Monocytes # (Auto) 0.4 0.1-1.0 K/uL Eosinophils # (Auto) 0.21 0.00-0.70 K/uL Basophils # (Auto) 0.02 0.00-0.20 K/uL Absolute Immature Granulocyte (auto 0.06 0-1 K/uL White Cell Morphology Comment See comments Chemistry Labs: Test 02/09/24 03:08 02/08/24 19:48 02/08/24 11:42 Range/Units Sodium Level 143 136-145 mmol/L Potassium Level 3.4 L 3.5-5.1 mmol/L Chloride Level 105 101-111 mmol/L Carbon Dioxide Level 26 21-32 mmol/L Blood Urea Nitrogen 51 H 7-18 mg/dL Creatinine 2.3 H 0.5-1.3 mg/dL Glomerular Filtration Rate Calc 27 >90 mL/min Random Glucose 92 70-105 mg/dL Total Calcium 8.3 L 8.5-10.1 mg/dL Magnesium Level 2.20 1.80-2.40 mg/dL Total Bilirubin 4.9 H 0.2-1.0 mg/dL Aspartate Amino Transf (AST/SGOT) 73 H 10-37 U/L Alanine Aminotransferase (ALT/SGPT) 47 # 12-78 U/L Alkaline Phosphatase 117 50-136 U/L Total Protein 5.9 L 6.0-8.3 g/dL Albumin 2.8 L 3.5-5.0 g/dL Whole Blood Glucose 118 H 70-110 MG/DL Bedside Glucose Comment Notified Nurse DIAGNOSTICS / RADIOLOGY RESULTS: [ ] PLAN Tele to monitor Monitor electrolytes and replace accordingly Supplement O2 as needed to maintain saturations above 92% 6 minute walk before discharge failed Chest x-ray in a.m. Strict I&O and daily weights Hydralazine p.r.n. for hypertension Fluid restriction of 1.5 L a day Continue with aspirin, Eliquis Statin therapy Respiratory culture Influenza and COVID-19 swabs negative Melatonin 10 mg p.o. at night Reorient patient frequently, during the day keep light on. Thiamine and folic acid Empiric antibiotic treatment for CAP NEURO: Minimize central acting medications as possible. Maintain fall precautions, adequate lighting during the day PULMONARY: Supplemental 02 as needed. Maintain aspiration precautions at all times CARDIOVASCULAR: Follow hemodynamics. Vital signs per facility protocol GI & NUTRITION: Continue with nutritional support. Continue stool softeners and laxatives as needed. KIDNEYS & ELECTROLYTES: Strict monitoring of intake, output and overall fluid balance. Avoid nephrotoxic medications to the extent possible. Medications to be dosed according to renal function. Monitor electrolytes and replace as needed ENDOCRINE: Maintain blood glucose between 100-180 at all times. Hypoglycemia protocol in place INFECTIOUS DISEASE: Trend temperature, WBC and procalcitonin level Follow cultures, deescalate antibiotics as soon as possible. Panculture if new onset fever ONCOLOGY/HEMATOLOGY/COAGULATION: Monitor for s/s of bleeding Monitor hemoglobin, coagulation studies as needed SKIN: Pressure ulcer prevention per facility protocol Specialty mattress ORTHO/REHAB: Continue PT/OT Prophylaxis: Continue GI and DVT prophylaxis Code Status: Full Resuscitation Disposition: TBD Other: Total patient care time exceeds 35 minutes excluding all procedures. CRISTIN LUNA [facility] Feb 09, 2024 12:30
[2024-02-09] MEDS: tamSULOsin HCL 0.4 MG CAP.ER.24H PO SCH (19:35)
[2024-02-09] MEDS: APIXaban 2.5 MG TABLET PO SCH (19:36)
--- NOTE | 2024-02-09 23:47 | CONS ---
HISTORY OF PRESENT ILLNESS: An 84-year-old male who has had a prolonged hospital course. The patient initially admitted to the hospital and found to have significant altered mental status. The patient with a history of hypertension, hypercholesterolemia, also has a history of known coronary artery disease. The patient's renal function has worsened while in the hospital and he is being seen in consultation. His history is mainly obtained via the chart. The patient is a very poor historian. PAST MEDICAL HISTORY: Hypertension, thyroid disease, hypercholesterolemia, coronary artery disease. PAST SURGICAL HISTORY: AICD and valve replacement. SOCIAL HISTORY: He apparently lives independently. No alcohol or tobacco use. FAMILY HISTORY: No renal disease in the family. ALLERGIES: There are no allergies. MEDICATIONS: Noted. REVIEW OF SYSTEMS: The patient is really unable to give any formal review of systems. PHYSICAL EXAMINATION: VITAL SIGNS: Blood pressure is 125/76, pulse 80s, he is afebrile. GENERAL: He is a chronically ill male, debilitated, lying in bed in the medical floor. HEENT: Head is atraumatic. Pupils equal, roving to light. Oropharynx is without exudate. Nares clear. NECK: There is no JVP. There is no thyromegaly, no mass. CARDIOVASCULAR: Regular. There is no S3 or S4 gallop. LUNGS: Coarse with equal thoracic movement. ABDOMEN: Soft, nondistended, nontender. EXTREMITIES: Reveal no clubbing, no cyanosis. NEUROLOGICAL: He is awake. He is alert. He is confused. LABORATORY DATA: Sodium 143, potassium 3.4, BUN 51, creatinine is 2.3. Hemoglobin 11 and hematocrit 37. Creatinine upon admission was 1.4. IMPRESSION: * Acute on chronic renal failure. * Volume depletion. * Known coronary artery disease. * Altered mental status. PLAN: The patient's creatinine appears to be stabilizing. I suspect the patient's renal function will improve over the next few days. He remains on the IV hydration. We will obtain a CPK for completeness and follow the patient closely. All labs can be repeated in the a.m. TID: [id number] RECEIPT: [id number]
[2024-02-10] VITALS (9 sets, daily range): BP systolic 103–123; BP diastolic 64–90; PULSE 80–102; RESP 18–20; TEMP 97.4–98.2; O2SAT 95–100
[2024-02-10 04:58] LABS: HEMATOCRIT 35.4 % (42-54); MEAN CORPUSCULAR HEMOGLOBIN 29.5 pg (27.0-33.0); MEAN CORPUSCULAR HGB CONC 31.4 g/dL (32.0-36.0); MEAN CORPUSCULAR VOLUME 94.1 fL (79-99); RED BLOOD CELL COUNT(AUTO) 3.76 MIL/uL (4.50-6.20); RED CELL DISTRIBUTION WIDTH 19.6 % (11.0-15.5); WHITE BLOOD COUNT (AUTO) 6.1 K/uL (4.8-10.8)
[2024-02-10 05:32] LABS: ALBUMIN 2.7 g/dL (3.5-5.0); CREATININE 1.9 mg/dL (0.5-1.3); MAGNESIUM 2.1 mg/dL (1.80-2.40); TOTAL PROTEIN, SERUM 5.7 g/dL (6.0-8.3)
[2024-02-10 05:58] LABS: POTASSIUM 3.1 mmol/L (3.5-5.1)
--- NOTE | 2024-02-10 09:07 | PN ---
[facility] PROGRESS NOTE Date Patient Seen: Feb 10, 2024 Time of Visit: 09:00 Supervising Physician: [Dr. Soto] Primary Care Physician: Kevin Doyle MD Outpatient Specialists: Inpatient Consults: Dr Desean Gama MD, LUTHER Carrasco Attending physician: Daniel Chang MD PROBLEM LIST: Acute hypoxic respiratory failure, POA, resolving Acute metabolic encephalopathy, POA, resolving Elevated troponin, POA Acute on chronic CHF POA EF 50-55% stage III diastolic dysfunction on 2D echo 02/07/24 Community Acquired Pneumonia, POA Chronic atrial fibrillation on chronic anticoagulation with Eliquis, POA Hypokalemia POA Intractable abdominal pain POA Gallstones in the distended gallbladder, POA on ultrasound 02/06/24 Bilateral renal cysts, POA 02/06/24 Cardiomegaly, POA Elevated liver enzymes POA Liver parenchymal disease, POA ALVINO on CKD, POA Normocytic Anemia POA Thrombocytopenia, not POA Hypertension POA Hyperlipidemia POA Hypothyroidism POA CAD s/p CABG in 2009, with bioprosthetic aortic valve replacement History of aortic valve replacement POA s/p Medtronic Luda XT NSR MRI [id number] VVIR pacemaker implantation in [facility] S/p Patito 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 Overnight became increasingly aggressive. CT of the head was performed and negative for any intracranial bleeding or acute processes. Shows atrophy with white matter changes. He is hemodynamically stable AFib in the 90s on tele monitor. O2 saturation 98% on 2 L via nasal cannula. Started patient on thiamine and folic acid IV given his history of drinking wine daily. Patient on CIWA protocol. We will continue to wean O2 as tolerated to maintain O2 sats above 92%. We will continue to wean Bumex as needed. 02/07-patient is awake alert and oriented to name and place. Patient has not been aggressive today. Improving in mental status. H&H is 12/38.2 today platelet count is normal neutrophils 86.2. Chemistry creatinine is 2.2 and GFR is 28 decreased from yesterday. Albumin 3.0. Patient continues on antibiotics for CAP is Rocephin and azithromycin. Plan and respiratory cultures. Patient has been hemodynamically stable afebrile 92 % on bedside monitor without O2 at room air. We will need to 6 minute walk to assess home O2 needs prior to discharge 02/08-patient is awake alert and oriented x2. Cooperative no longer aggressive. Sitting up in chair and holding conversation with his . No sitter at bedside needed. Patient is hemodynamically stable in no apparent distress saturating 95% on room air. Patient failed 6 minute walk so we will likely need home arrangement for O2 if discharged home in the next 24-48 hours. I have recommended patient to go to custodial facility for further physical therapy and rehabilitation. As per patient and significant other they will think about it. Disposition per primary. Otherwise CBC similar to yesterday. Sodium 143 potassium 3.4 covered per protocol BUN 51 creatinine 2.3 GFR of 27. Since to be stabilized kidney function. Calcium 8.3 magnesium two point 20s total bili 4.9 improving AST 73, total protein 5.9 albumin 2.8. 02/09 Patient is evaluated at bedside. He is weak. His blood pressure 123/90 with a heart rate of 101, afebrile on room air with O2 sat of 93%. CBC shows WBC of 6, hemoglobin 11, platelets 112. BMP shows hypokalemia at 3.1, has daily potassium supplement. His creatinine is somewhat improved from 2.3-1.9, Nephrology is following the patient. His bumetanide has been discontinued. Patient also had elevated CK at 505. Patient did fail a 6 minute walk, we will need home O2 if he is discharged home. On behalf of [facility], thank you for this consult. We will sign off, please reconsult as needed or call with questions. REVIEW OF SYSTEMS: Unable to obtain due to patient confused. PHYSICAL EXAM: GENERAL: alert, awake generalized weakness oriented to name HEENT: EOMI, Sclera non icteric, moist mucosa NECK: Supple, no JVD, trachea midline LUNGS: Diminished breath sounds bilaterally. wheezes HEART: Regular rate and rhythm. Normal S1 and S2, without murmurs ABD: Abdomen soft, nontender. Bowel sounds present EXT: No clubbing cyanosis or edema NEURO: Alert and oriented to person, follows commands Vital Signs (last 8hr) Date Time Temp Pulse Resp B/P (MAP) Pulse Ox O2 Delivery O2 Flow Rate FiO2 02/10/24 04:00 97.3 101 18 123/90 93 Room Air LABS: Hematology Labs: Test 02/10/24 04:50 Range/Units White Blood Count 6.1 4.8-10.8 K/uL Red Blood Count 3.76 L 4.50-6.20 MIL/uL Hemoglobin 11.1 L 14.0-18.0 g/dL Hematocrit 35.4 L 42-54 % Mean Corpuscular Volume 94.1 79-99 fL Mean Corpuscular Hemoglobin 29.5 27.0-33.0 pg Mean Corpuscular Hemoglobin Concent 31.4 L 32.0-36.0 g/dL Red Cell Distribution Width 19.6 H 11.0-15.5 % Platelet Count 112 #L 130-400 K/uL Mean Platelet Volume 11.8 H 7.5-10.5 fL Nucleated Red Blood Cells 0.0 0.0-0.19 % Chemistry Labs: Test 02/10/24 04:50 02/08/24 19:48 02/08/24 11:42 Range/Units Sodium Level 141 136-145 mmol/L Potassium Level 3.1 L 3.5-5.1 mmol/L Chloride Level 106 101-111 mmol/L Carbon Dioxide Level 25 21-32 mmol/L Blood Urea Nitrogen 44 H 7-18 mg/dL Creatinine 1.9 H 0.5-1.3 mg/dL Glomerular Filtration Rate Calc 34 >90 mL/min Random Glucose 93 70-105 mg/dL Total Calcium 8.0 L 8.5-10.1 mg/dL Magnesium Level 2.10 1.80-2.40 mg/dL Total Bilirubin 4.0 H 0.2-1.0 mg/dL Aspartate Amino Transf (AST/SGOT) 71 H 10-37 U/L Alanine Aminotransferase (ALT/SGPT) 57 12-78 U/L Alkaline Phosphatase 112 50-136 U/L Total Creatine Kinase 505 #*H 21-232 U/L Troponin I High Sensitivity 74.4 4-75 ng/L Total Protein 5.7 L 6.0-8.3 g/dL Albumin 2.7 L 3.5-5.0 g/dL Whole Blood Glucose 118 H 70-110 MG/DL Bedside Glucose Comment Notified Nurse DIAGNOSTICS / RADIOLOGY RESULTS: CHEST 1VW HISTORY: Hypoxia COMPARISON: 02/05/2024 FINDINGS: A frontal projection of the chest was obtained. Mild bilateral pulmonary infiltrates are seen may be related to mild pulmonary vascular congestion with possible superimposed pneumonitis. Poststernotomy changes are seen. The heart is markedly enlarged. Degenerative changes of the thoracolumbar spine are present. Pacemaker is seen entering from the left. No evidence of aortic calcification is seen. IMPRESSION: 1. Mild bilateral pulmonary infiltrates are seen may be related to mild pulmonary vascular congestion with possible superimposed pneumonitis. Markedly enlarged heart. PLAN Tele to monitor Monitor electrolytes and replace accordingly Supplement O2 as needed to maintain saturations above 92% 6 minute walk before discharge failed, CM for Home O2 Strict I&O and daily weights Hydralazine p.r.n. for hypertension Fluid restriction of 1.5 L a day Continue with aspirin, Eliquis Statin therapy Respiratory culture Influenza and COVID-19 swabs negative Melatonin 10 mg p.o. at night Reorient patient frequently, during the day keep light on. Thiamine and folic acid Empiric antibiotic treatment for CAP NEURO: Minimize central acting medications as possible. Maintain fall precautions, adequate lighting during the day PULMONARY: Supplemental 02 as needed. Maintain aspiration precautions at all times CARDIOVASCULAR: Follow hemodynamics. Vital signs per facility protocol GI & NUTRITION: Continue with nutritional support. Continue stool softeners and laxatives as needed. KIDNEYS & ELECTROLYTES: Strict monitoring of intake, output and overall fluid balance. Avoid nephrotoxic medications to the extent possible. Medications to be dosed according to renal function. Monitor electrolytes and replace as needed ENDOCRINE: Maintain blood glucose between 100-180 at all times. Hypoglycemia protocol in place INFECTIOUS DISEASE: Trend temperature, WBC and procalcitonin level Follow cultures, deescalate antibiotics as soon as possible. Panculture if new onset fever ONCOLOGY/HEMATOLOGY/COAGULATION: Monitor for s/s of bleeding Monitor hemoglobin, coagulation studies as needed SKIN: Pressure ulcer prevention per facility protocol Specialty mattress ORTHO/REHAB: Continue PT/OT Prophylaxis: Continue GI and DVT prophylaxis Code Status: Full Resuscitation Disposition: TBD Other: Total patient care time exceeds 35 minutes excluding all procedures. BRANDIE MAYA Feb 10, 2024 09:07
--- NOTE | 2024-02-10 12:24 | PN ---
[facility] PROGRESS NOTE Date of Service: Feb 10, 2024 Time of Service: 12:22 SUBJECTIVE: The patient has been seen and examined during my rounding, no acute events overnight, BP 114/70, afebrile, saturating normal on room air, he denied chest pain, shortness shortness for breath, no nausea, no vomiting, no abdominal discomfort. No family members at bedside during my visit. 02/06 the patient has been seen and examined during my rounding today, per my discussion with the nurse that is taking care of the patient, he became confused last night, during my visit sitter is at bedside, the patient following simple commands, but not agitated, not combative. is at bedside during my visit, updated. Results of HIDA scan reviewed, discussed with her. All questions an swered. 02/07 the patient has been seen and examined during my rounding, no acute events overnight, the patient remains with bedside sitter. He is on multivitamin IV, he is still looks more hydrated and more awake today compared to yesterday, not agitated, not combative, he is able to tell me his name. No family members at bedside during my visit. BP 126/74, rest of the vital signs are unremarkable. 02/08 the patient has been seen and examined during my rounding, no acute events overnight, he is sitting comfortably in the chair, getting multivitamin IV, he is more awake, following more commands, cooperating well, not agitated, he is no longer requiring a bedside sitter. BP 97/60, rest of the vital signs are unremarkable, no family members at bedside during my visit. 02/09 the patient has been seen and examined during my rounding, still confused but answering questions more appropriate today compared to yesterday, having breakfast during my visit tolerating well, no nausea, no vomiting, no abdominal pain. Sitter is at bedside. No family members present in the room during my visit. BP 123/83, afebrile, saturating normal on room air. REVIEW OF SYSTEMS CONSTITUTIONAL: Denies fevers, chills, or night sweats. No unintentional weight loss reported. NEUROLOGICAL: Denies headache, amaurosis fugax, motor weakness, sensory deficit, vertigo/spinning sensation, gait abnormalities, or tremors. ENT: No hearing loss, otalgia, otorrhea, rhinitis, rhinorrhea, hoarseness, or sore throat. CARDIOVASCULAR: Denies any exertional angina, dyspnea on exertion, orthopnea, paroxysmal nocturnal dyspnea, palpitations, life-threatening arrhythmias, claudication. PULMONARY: Positive shortness of breath Denies cough, phlegm/sputum, hemoptysis, pleuritic chest pain. SLEEP: Denies morning headaches, daytime somnolence or napping. Denies difficulty falling asleep, staying asleep, waking from sleep. Denies knowledge of snoring. GASTROINTESTINAL: Positive abdominal pain and diarrhea Denies any type of dysphagia to either liquids or solids. Denies nausea, vomiting, pyrosis, early satiety, constipation, or changes in stool consistency or caliber. Denies coffee-ground emesis, hematemesis, hematochezia, or melanotic stools. GENITOURINARY: Denies frequency, urgency, nocturia, hematuria or incontinence (Storage/Irritative symptoms.) Low urinary stream, straining to void, urinary intermittency or hesitancy, splitting of the voiding stream, terminal dribbling. ENDOCRINOLOGIC: Denies polyuria, polydipsia, polyphagia or heat/cold intolerances. HEMATOLOGIC: Denies thrombophilia/previous clots, or coagulopathy/bleeding disorders. ONCOLOGIC: Denies personal history of malignancy. DERMATOLOGIC: Denies rashes or pruritus. PSYCHIATRIC: Denies any suicidal or homicidal ideation. Denies hallucinations. PHYSICAL EXAM GENERAL APPEARANCE: Resting comfortably in bed, less confused, dry oral mucosa noted. NEUROLOGICAL: Cranial nerves II-XII grossly intact. Motor is 5/5 in bilateral upper and lower extremities proximal to distal. No sensory deficits. HEENT: Face is symmetric. Pupils are equal and reactive. Extraocular movements are intact. NECK: Supple. No JVD. No thyromegaly. No submental, submandibular, pre- /postauricular, occipital or supraclavicular lymphadenopathy. CHEST: Normal chest expansion. No Telemetry. LUNGS: Absence of any rales, rhonchi or any wheezing. CARDIOVASCULAR: Regular. S1 and S2 normal. No appreciable rubs, murmurs or gallops. ABDOMEN: No rebound tenderness : Deferred. No Castañeda. EXTREMITIES: Trace edema to bilateral lower extremities SKIN: No skin breakdown. Vital Signs (last 8hr) Date Time Temp Pulse Resp B/P (MAP) Pulse Ox O2 Delivery O2 Flow Rate FiO2 02/10/24 08:00 97.9 102 20 123/83 100 Room Air LABS: Laboratory: Test 02/10/24 04:50 02/09/24 08:00 02/08/24 19:48 Range/Units White Blood Count 6.1 4.8-10.8 K/uL Red Blood Count 3.76 L 4.50-6.20 MIL/uL Hemoglobin 11.1 L 14.0-18.0 g/dL Hematocrit 35.4 L 42-54 % Mean Corpuscular Volume 94.1 79-99 fL Mean Corpuscular Hemoglobin 29.5 27.0-33.0 pg Mean Corpuscular Hemoglobin Concent 31.4 L 32.0-36.0 g/dL Red Cell Distribution Width 19.6 H 11.0-15.5 % Platelet Count 112 #L 130-400 K/uL Mean Platelet Volume 11.8 H 7.5-10.5 fL Nucleated Red Blood Cells 0.0 0.0-0.19 % Sodium Level 141 136-145 mmol/L Potassium Level 3.1 L 3.5-5.1 mmol/L Chloride Level 106 101-111 mmol/L Carbon Dioxide Level 25 21-32 mmol/L Blood Urea Nitrogen 44 H 7-18 mg/dL Creatinine 1.9 H 0.5-1.3 mg/dL Glomerular Filtration Rate Calc 34 >90 mL/min Random Glucose 93 70-105 mg/dL Total Calcium 8.0 L 8.5-10.1 mg/dL Magnesium Level 2.10 1.80-2.40 mg/dL Total Bilirubin 4.0 H 0.2-1.0 mg/dL Aspartate Amino Transf (AST/SGOT) 71 H 10-37 U/L Alanine Aminotransferase (ALT/SGPT) 57 12-78 U/L Alkaline Phosphatase 112 50-136 U/L Total Creatine Kinase 505 #*H 21-232 U/L Troponin I High Sensitivity 74.4 4-75 ng/L Total Protein 5.7 L 6.0-8.3 g/dL Albumin 2.7 L 3.5-5.0 g/dL Stool Occult Blood POSITIVE H NEGATIVE Whole Blood Glucose 118 H 70-110 MG/DL Current Medications Medications (Trade) Dose Ordered Sig/Trisha Route PRN Reason Start Time Stop Time Status Last Admin Dose Admin Acetaminophen (TYLenol 325MG TAB) 650 mg Q4H PRN PO MILD PAIN (1-3) 02/06/24 00:00 03/07/24 00:00 Acetaminophen (TYLenol 325MG TAB) 650 mg Q6H PRN PO TEMPERATURE GREATER THAN 101.5 02/06/24 00:00 03/07/24 00:00 Albuterol (DUOneb) 1 udvial [id number] IH 02/06/24 02:00 02/06/24 18:47 DC 02/06/24 18:41 1 UDVIAL Allopurinol (ZYLOprim 100MG) 200 mg DAILY PO 02/06/24 09:00 02/06/24 17:11 DC Apixaban (EliquIS 2.5 mg) 2.5 mg BID PO 02/06/24 09:00 02/07/24 07:24 DC 02/06/24 22:11 2.5 MG Apixaban (EliquIS 2.5 mg) 2.5 mg BID PO 02/09/24 21:00 03/10/24 20:59 02/10/24 08:24 2.5 MG Aspirin (Aspirin 81mg Ec Tab) 81 mg DAILY PO 02/06/24 09:00 02/08/24 07:58 DC 02/07/24 09:23 81 MG Atorvastatin Calcium (LIPItor 20MG) 20 mg HS PO 02/06/24 21:00 03/07/24 20:59 02/09/24 19:35 20 MG Azithromycin 250 ml @ 250 mls/hr Q24H IVPB 02/09/24 12:00 02/19/24 11:59 02/09/24 12:07 250 MLS/HR Bumetanide (Bumex 1mg Tab) 2 mg BID PO 02/06/24 19:00 02/06/24 19:08 DC Bumetanide (Bumex 1mg Tab) 2 mg BID PO 02/07/24 09:00 02/06/24 19:12 DC Bumetanide (Bumex 1mg Tab) 2 mg DAILY PO 02/06/24 09:00 02/06/24 18:44 DC 02/06/24 09:06 2 MG Bumetanide (Bumex 1mg Vial) 1 mg BID IVP 02/07/24 06:00 02/08/24 07:58 DC 02/07/24 20:45 1 MG Ceftriaxone Sodium (ROCEphine 1G INJ) 1 gm Q24H IVPB 02/08/24 14:00 02/18/24 13:59 02/09/24 14:45 1 GM Chlordiazepoxide HCl (LIBrium 25 MG CAP) 25 mg Q2H PRN PO ALCOHOL WITHDRAWAL PROTOCOL 02/07/24 14:00 02/08/24 13:58 DC 02/08/24 03:34 25 MG Chlordiazepoxide HCl (LIBrium 25 MG CAP) 50 mg Q1H PRN PO ALCOHOL WITHDRAWAL PROTOCOL 02/07/24 14:00 02/08/24 13:58 DC Doxycycline Hyclate 250 ml @ 125 mls/hr Q12H IV 02/06/24 12:00 02/08/24 14:05 DC 02/08/24 12:38 125 MLS/HR Famotidine (Pepcid 20mg Vial) 20 mg DAILY IV 02/06/24 09:00 03/07/24 08:59 02/10/24 08:24 20 MG Folic Acid (FolVITE 5 MG/ML VIAL) 1 mg DAILY IV 02/08/24 09:00 03/09/24 08:59 02/10/24 09:36 1 MG Gabapentin (NEURontin 100 mg CAP) 100 mg BID PO 02/06/24 21:00 03/07/24 08:59 02/10/24 08:24 100 MG Gabapentin (NEURontin 100 mg CAP) 300 mg DAILY PO 02/06/24 09:00 02/06/24 18:47 DC 02/06/24 09:13 300 MG Hydralazine HCl (APRESOLine 20MG INJ) 5 mg Q6H PRN IV For:SBP above 160;DBP above 90 02/08/24 18:00 03/09/24 17:59 Hydralazine HCl (APRESOLine 20MG INJ) 10 mg Q6H PRN IV For:SBP above 160;DBP above 90 02/06/24 00:00 02/08/24 13:58 DC Ipratropium [place] (AtrovENT UD) 0.5 MG S4TDTCO IH 02/06/24 22:00 03/07/24 21:59 02/09/24 23:39 0.5 MG Levothyroxine Sodium (SYNTHroid 50MCG TAB) 50 mcg SYN PO 02/06/24 06:30 03/07/24 06:29 02/10/24 04:47 50 MCG Lisinopril (Prinivil 5mg) 5 mg DAILY PO 02/07/24 09:00 02/07/24 07:35 DC Lorazepam (AtiVAN) 0.5 mg Q6H PRN PO ANXIETY/AGITATION 02/06/24 00:30 02/07/24 00:35 DC 02/06/24 22:11 0.5 MG Magnesium Sulfate 50 ml @ 0 mls/hr PROTOCOL PRN IV OTHER [SEE ORDER COMMENTS] 02/06/24 00:00 03/07/24 00:00 02/06/24 15:11 50 MLS/HR Magnesium Sulfate 50 ml @ 0 mls/hr PROTOCOL PRN IV LOW MAGNESIUM 02/06/24 07:00 02/06/24 17:11 DC Melatonin (Melatonin) 10 mg HS PO 02/07/24 21:00 03/08/24 20:59 02/09/24 19:35 10 MG Metoprolol Succinate (TopROL XL) 50 mg DAILY PO 02/06/24 09:00 03/07/24 08:59 02/10/24 08:24 50 MG Metoprolol Tartrate (loprESSOR) 5 mg AD PRN IV INCREASED HEART RATE 02/08/24 14:00 03/09/24 13:59 Metoprolol Tartrate (loprESSOR) 10 mg AD PRN IV INCREASED HEART RATE 02/07/24 07:00 02/08/24 13:58 DC 02/07/24 06:56 10 MG Metoprolol Tartrate (loprESSOR) 10 mg Q6H IV 02/07/24 08:00 02/08/24 13:58 DC 02/08/24 09:32 10 MG Metronidazole/ Sodium Chloride 100 ml @ 100 mls/hr Q8H6 IVPB 02/06/24 06:00 02/06/24 11:43 DC 02/06/24 06:54 100 MLS/HR Montelukast Sodium (SinguLAIR) 10 mg HS PO 02/06/24 21:00 03/07/24 20:59 02/09/24 19:35 10 MG Multivitamins/ Minerals 10 ml/ Folic Acid 1 mg/ Thiamine HCl 100 mg/Sodium Chloride 1,010 ml @ 75 mls/hr DAILY IV 02/07/24 12:00 02/08/24 13:58 DC 02/08/24 10:01 75 MLS/HR Multivitamins/ Minerals 10 ml/ Folic Acid 1 mg/ Thiamine HCl 100 mg/Sodium Chloride 1,010 ml @ 75 mls/hr DAILY IV 02/09/24 09:00 02/11/24 08:59 02/10/24 09:36 75 MLS/HR Nitroglycerin (Nitrostat) 0.4 mg AD SL 02/06/24 00:00 03/07/24 00:00 Ondansetron HCl (zoFRAN 4MG INJ) 4 mg Q6H PRN IV NAUSEA/VOMITING 02/06/24 00:00 03/07/24 00:00 Pharmacy Profile Note (Pharmacy Communication) 1 each PROTOCOL PRN MISC ETOH Withdrawal Score changes 02/07/24 14:00 02/07/24 13:44 DC Piperacillin Sod/ Tazobactam Sod (Zosyn 3.375gm+NS 50ml) 3.375 gm Q8H IV 02/06/24 14:00 02/08/24 13:58 DC 02/08/24 06:48 3.375 GM Potassium Chloride 100 ml @ 50 mls/hr AD PRN IV POTASSIUM PROTOCOL 02/06/24 06:30 02/06/24 06:35 DC Potassium Chloride 100 ml @ 100 mls/hr AD PRN IV POTASSIUM PROTOCOL 02/06/24 00:00 02/06/24 06:34 DC 02/06/24 06:15 100 MLS/HR Potassium Chloride 100 ml @ 100 mls/hr AD PRN IV POTASSIUM PROTOCOL 02/06/24 06:30 03/07/24 06:29 Potassium Chloride (K-Dur 10meq Sr Tab) 10 meq DAILY PO 02/06/24 09:00 02/06/24 06:34 DC Potassium Chloride (K-Dur/Klor-Con 20meq) 20 meq AD PRN PO POTASSIUM PROTOCOL 02/06/24 06:30 03/07/24 06:29 Potassium Chloride (KCl 10% Elixir 20meq/15ml) 20 meq AD PRN PO POTASSIUM PROTOCOL 02/06/24 06:30 03/07/24 06:29 02/10/24 06:17 20 MEQ Prednisone (deltaSONE/ oraSONE 20MG TAB) 20 mg BID PO 02/06/24 21:00 02/07/24 20:54 DC 02/07/24 20:44 20 MG Ropinirole HCl (REquip) 1 mg BID PO 02/06/24 09:00 02/07/24 20:55 DC 02/07/24 20:44 1 MG Tamsulosin HCl (FloMAX) 0.4 mg DAILY PO 02/09/24 21:00 03/10/24 20:59 02/10/24 08:24 0.4 MG Thiamine HCl (Vitamin B-1) 300 mg ONCE IVP 02/07/24 14:00 02/07/24 13:43 DC DIAGNOSTICS / RADIOLOGY: [ ] ASSESSMENT: Elevated troponin rule out ACS POA Acute on chronic CHF POA Acute respiratory failure POA Persistent atrial fibrillation POA Hypokalemia POA Intractable abdominal pain POA Suspected gastroenteritis POA Elevated liver enzymes POA Acute on chronic renal insufficiency POA Anemia POA Hypertension POA Hyperlipidemia POA Hypothyroidism POA Coronary artery disease with cardiac stent x4 POA History of aortic valve replacement POA AICD status POA Acute metabolic encephalopathy PLAN: Remains admitted to the medical floor Continue threat monitoring analyst Continue diet advanced as tolerated Cardiology consultation requested, input noted and appreciated HIDA scan unremarkable Continue aspirin 81 mg p.o. daily Continue on Famotidine 20 mg IV daily for GI prophylaxis We will replace electrolytes as needed per protocol Continue on insulin sliding scale AC & HS with hypoglycemia protocol Continue prn medication for fever,pain,nausea and vomiting Reconcile home meds Replace electrolytes IV per protocol GI and DVT prophylaxis Further orders to follow depending on above results Disposition: The patient has been downgraded to the medical floor, mental status slowly improving, he looks more hydrated today compared to yesterday, continue supportive care with IV fluids. Start LR at 75 mL/hour and discontinue banana bag. Patient tolerating diet. Renal function slowly improving, today at 1.9, continue to monitor. Nephrology input noted and appreciated. No family members at bedside to discuss goals of care. LAURA GRAJEDA MD Feb 10, 2024 12:24
[2024-02-10] MEDS: PoTASSium chloRIDE 20MEQ ER 20 MEQ ERTAB PO ONE (12:46)
[2024-02-10] MEDS: LACTATED RINGERS 1000ML 1,000 ML IV SCH (12:46)
--- NOTE | 2024-02-10 12:57 | PN ---
FOLLOWUP PROGRESS NOTE SUBJECTIVE: An 84-year-old male. He presented to the hospital and found to have significant confusion. He has had [id number] renal failure in the hospital. The patient was started on IV hydration and creatinine continues to stabilize. He continues to be quite confused. He has been transferred out to medical floor. The patient is being seen for all the above. REVIEW OF SYSTEMS: He is really unable to give any review of systems. OBJECTIVE: VITAL SIGNS: Blood pressure 123/83, pulse 100. GENERAL: Chronically ill male, elderly, lying in bed on medical floor. HEENT: Head is atraumatic. Pupils equal, roving to light. Oropharynx is without exudate. Nares clear. NECK: There is no JVP. There is no thyromegaly, no mass. CARDIOVASCULAR: Regular. There is no S3, S4 gallop. LUNGS: Coarse with equal thoracic movement. ABDOMEN: Soft, nondistended, nontender. EXTREMITIES: Reveal no clubbing, no cyanosis. NEUROLOGIC: He is still quite confused. LABORATORY DATA: Sodium 141, potassium is 3, BUN 44, creatinine 1.9. CPK is 500. Hemoglobin 11, hematocrit 35. IMPRESSION: 1. [id number] renal failure. 2. Volume depletion. 3. Altered mental status. 4. Debilitation. 5. Hypertension. PLAN: The patient's creatinine has improved with the IV hydration. The patient will continue with the banana bag. The patient's electrolytes have all been aggressively repleted. The patient is encouraged with his oral intake. I did discuss the case in detail with the patient's family. We will continue to follow closely. TID: [id number] RECEIPT: [id number]
[2024-02-11 03:31] VITALS: BP 121/87; PULSE 90; RESP 18; TEMP 97.9
[2024-02-11 04:08] LABS: HEMATOCRIT 33.7 % (42-54); MEAN CORPUSCULAR HEMOGLOBIN 28.8 pg (27.0-33.0); MEAN CORPUSCULAR HGB CONC 31.2 g/dL (32.0-36.0); MEAN CORPUSCULAR VOLUME 92.3 fL (79-99); NUCLEATED RED BLOOD CELLS 0.4 % (0.0-0.19); RED BLOOD CELL COUNT(AUTO) 3.65 MIL/uL (4.50-6.20); RED CELL DISTRIBUTION WIDTH 19.5 % (11.0-15.5); WHITE BLOOD COUNT (AUTO) 5.5 K/uL (4.8-10.8)
[2024-02-11 04:27] LABS: ALBUMIN 2.8 g/dL (3.5-5.0); BILIRUBIN,TOTAL 3.8 mg/dL (0.2-1.0); CREATININE 1.6 mg/dL (0.5-1.3); MAGNESIUM 2.2 mg/dL (1.80-2.40); POTASSIUM 3.5 mmol/L (3.5-5.1); TOTAL PROTEIN, SERUM 5.8 g/dL (6.0-8.3)
[2024-02-11] MEDS: PoTASSium chloRIDE 20MEQ ER 20 MEQ ERTAB PO PRN (05:23)
[2024-02-11 08:00] VITALS: BP 128/91; PULSE 89; RESP 16; TEMP 97.7; O2SAT 95
[2024-02-11 12:00] VITALS: BP 129/83; PULSE 83; RESP 18; TEMP 98.2
--- NOTE | 2024-02-11 15:07 | PN ---
FOLLOWUP PROGRESS NOTE SUBJECTIVE: An 84-year-old male initially presented to the hospital and found to have acute renal failure. The patient with significant confusion. The patient continues with significant debilitation. The patient was started on IV fluids and creatinine continues to slowly improve and he is being seen as a followup visit for all of the above. REVIEW OF SYSTEMS: GENERAL: He is feeling weak and tired. HEENT: No change in vision. No change in hearing. CARDIOVASCULAR: There is no current chest pain or palpitations. PULMONARY: No shortness of breath. GASTROINTESTINAL: He is now tolerating a diet. MUSCULOSKELETAL: Complains of weakness. PHYSICAL EXAMINATION: VITAL SIGNS: Blood pressure 128/91, pulse in the 80s. GENERAL: He is a chronically ill male, elderly, lying in bed on the medical floor. HEENT: Head is atraumatic. Pupils equal, roving to light. Oropharynx is without exudate. Nares clear. NECK: There is no JVP. There is no thyromegaly, no mass. CARDIOVASCULAR: Regular. There is no S3, S4 gallop. LUNGS: Coarse with equal thoracic movement. ABDOMEN: Soft, nondistended, nontender. EXTREMITIES: Reveal no clubbing, no cyanosis. NEUROLOGIC: He is still confused. LABORATORY DATA: Sodium 142, potassium 3.5, BUN 34, creatinine 1.6. CPK is 500. Hemoglobin 12, hematocrit 33. IMPRESSION: * Acute on chronic renal failure. * Failure to thrive. * Electrolyte abnormalities. * Diabetes mellitus. PLAN: The patient's creatinine continues to slowly improve. He remains on the gentle hydration. The patient is now tolerating some amount of a diet. The patient with significant confusion. I did discuss with the patient's family. He will need rehab upon discharge. The patient is being seen by case management in regards to placement at the long term. We will continue to follow closely and make further recommendations accordingly. TID: [id number] RECEIPT: [id number]
[2024-02-11 15:12] VITALS: BP 124/92; PULSE 86; RESP 18; TEMP 97.9
--- NOTE | 2024-02-11 18:07 | PN ---
[facility] PROGRESS NOTE Date of Service: Feb 11, 2024 Time of Service: 18:00 SUBJECTIVE: The patient has been seen and examined during my rounding, no acute events overnight, BP 114/70, afebrile, saturating normal on room air, he denied chest pain, shortness shortness for breath, no nausea, no vomiting, no abdominal discomfort. No family members at bedside during my visit. 02/06 the patient has been seen and examined during my rounding today, per my discussion with the nurse that is taking care of the patient, he became confused last night, during my visit sitter is at bedside, the patient following simple commands, but not agitated, not combative. is at bedside during my visit, updated. Results of HIDA scan reviewed, discussed with her. All questions an swered. 02/07 the patient has been seen and examined during my rounding, no acute events overnight, the patient remains with bedside sitter. He is on multivitamin IV, he is still looks more hydrated and more awake today compared to yesterday, not agitated, not combative, he is able to tell me his name. No family members at bedside during my visit. BP 126/74, rest of the vital signs are unremarkable. 02/08 the patient has been seen and examined during my rounding, no acute events overnight, he is sitting comfortably in the chair, getting multivitamin IV, he is more awake, following more commands, cooperating well, not agitated, he is no longer requiring a bedside sitter. BP 97/60, rest of the vital signs are unremarkable, no family members at bedside during my visit. 02/09 the patient has been seen and examined during my rounding, still confused but answering questions more appropriate today compared to yesterday, having breakfast during my visit tolerating well, no nausea, no vomiting, no abdominal pain. Sitter is at bedside. No family members present in the room during my visit. BP 123/83, afebrile, saturating normal on room air. 02/10 Pt seen at bedside, no acute events overnight. Creatinine improved from 1.9 down to 1.6, remainder of his labs and vitals are relatively unremarkable. Pending placement to SNF REVIEW OF SYSTEMS 12 point ROS negative unless noted in HPI PHYSICAL EXAM GENERAL APPEARANCE: Resting comfortably in bed, less confused, dry oral mucosa noted. NEUROLOGICAL: Cranial nerves II-XII grossly intact. Motor is 5/5 in bilateral upper and lower extremities proximal to distal. No sensory deficits. HEENT: Face is symmetric. Pupils are equal and reactive. Extraocular movements are intact. NECK: Supple. No JVD. No thyromegaly. No submental, submandibular, pre- /postauricular, occipital or supraclavicular lymphadenopathy. CHEST: Normal chest expansion. No Telemetry. LUNGS: Absence of any rales, rhonchi or any wheezing. CARDIOVASCULAR: Regular. S1 and S2 normal. No appreciable rubs, murmurs or gallops. ABDOMEN: No rebound tenderness : Deferred. No Castañeda. EXTREMITIES: Trace edema to bilateral lower extremities SKIN: No skin breakdown. Vital Signs (last 8hr) Date Time Temp Pulse Resp B/P (MAP) Pulse Ox O2 Delivery O2 Flow Rate FiO2 02/11/24 15:30 N/A Room Air 02/11/24 15:12 97.9 86 18 124/92 97 02/11/24 12:00 98.2 83 18 129/83 96 Room Air LABS: Laboratory: Test 02/11/24 03:32 02/10/24 16:28 02/10/24 04:50 Range/Units White Blood Count 5.5 4.8-10.8 K/uL Red Blood Count 3.65 L 4.50-6.20 MIL/uL Hemoglobin 10.5 L 14.0-18.0 g/dL Hematocrit 33.7 L 42-54 % Mean Corpuscular Volume 92.3 79-99 fL Mean Corpuscular Hemoglobin 28.8 27.0-33.0 pg Mean Corpuscular Hemoglobin Concent 31.2 L 32.0-36.0 g/dL Red Cell Distribution Width 19.5 H 11.0-15.5 % Platelet Count 132 130-400 K/uL Mean Platelet Volume 13.1 H 7.5-10.5 fL Nucleated Red Blood Cells 0.4 H 0.0-0.19 % Sodium Level 142 136-145 mmol/L Potassium Level 3.5 3.5-5.1 mmol/L Chloride Level 108 101-111 mmol/L Carbon Dioxide Level 26 21-32 mmol/L Blood Urea Nitrogen 34 H 7-18 mg/dL Creatinine 1.6 H 0.5-1.3 mg/dL Glomerular Filtration Rate Calc 42 >90 mL/min Random Glucose 87 70-105 mg/dL Total Calcium 8.3 L 8.5-10.1 mg/dL Magnesium Level 2.20 1.80-2.40 mg/dL Total Bilirubin 3.8 H 0.2-1.0 mg/dL Aspartate Amino Transf (AST/SGOT) 55 H 10-37 U/L Alanine Aminotransferase (ALT/SGPT) 57 12-78 U/L Alkaline Phosphatase 118 50-136 U/L Total Protein 5.8 L 6.0-8.3 g/dL Albumin 2.8 L 3.5-5.0 g/dL Whole Blood Glucose 198 H 70-110 MG/DL Total Creatine Kinase 505 #*H 21-232 U/L Troponin I High Sensitivity 74.4 4-75 ng/L Current Medications Medications (Trade) Dose Ordered Sig/Trisha Route PRN Reason Start Time Stop Time Status Last Admin Dose Admin Acetaminophen (TYLenol 325MG TAB) 650 mg Q4H PRN PO MILD PAIN (1-3) 02/06/24 00:00 03/07/24 00:00 Acetaminophen (TYLenol 325MG TAB) 650 mg Q6H PRN PO TEMPERATURE GREATER THAN 101.5 02/06/24 00:00 03/07/24 00:00 Albuterol (DUOneb) 1 udvial [id number] IH 02/06/24 02:00 02/06/24 18:47 DC 02/06/24 18:41 1 UDVIAL Allopurinol (ZYLOprim 100MG) 200 mg DAILY PO 02/06/24 09:00 02/06/24 17:11 DC Apixaban (EliquIS 2.5 mg) 2.5 mg BID PO 02/06/24 09:00 02/07/24 07:24 DC 02/06/24 22:11 2.5 MG Apixaban (EliquIS 2.5 mg) 2.5 mg BID PO 02/09/24 21:00 03/10/24 20:59 02/11/24 10:59 2.5 MG Aspirin (Aspirin 81mg Ec Tab) 81 mg DAILY PO 02/06/24 09:00 02/08/24 07:58 DC 02/07/24 09:23 81 MG Atorvastatin Calcium (LIPItor 20MG) 20 mg HS PO 02/06/24 21:00 03/07/24 20:59 02/10/24 20:52 20 MG Azithromycin 250 ml @ 250 mls/hr Q24H IVPB 02/09/24 12:00 02/19/24 11:59 02/11/24 11:00 250 MLS/HR Bumetanide (Bumex 1mg Tab) 2 mg BID PO 02/06/24 19:00 02/06/24 19:08 DC Bumetanide (Bumex 1mg Tab) 2 mg BID PO 02/07/24 09:00 02/06/24 19:12 DC Bumetanide (Bumex 1mg Tab) 2 mg DAILY PO 02/06/24 09:00 02/06/24 18:44 DC 02/06/24 09:06 2 MG Bumetanide (Bumex 1mg Vial) 1 mg BID IVP 02/07/24 06:00 02/08/24 07:58 DC 02/07/24 20:45 1 MG Ceftriaxone Sodium (ROCEphine 1G INJ) 1 gm Q24H IVPB 02/08/24 14:00 02/18/24 13:59 02/11/24 15:41 1 GM Chlordiazepoxide HCl (LIBrium 25 MG CAP) 25 mg Q2H PRN PO ALCOHOL WITHDRAWAL PROTOCOL 02/07/24 14:00 02/08/24 13:58 DC 02/08/24 03:34 25 MG Chlordiazepoxide HCl (LIBrium 25 MG CAP) 50 mg Q1H PRN PO ALCOHOL WITHDRAWAL PROTOCOL 02/07/24 14:00 02/08/24 13:58 DC Doxycycline Hyclate 250 ml @ 125 mls/hr Q12H IV 02/06/24 12:00 02/08/24 14:05 DC 02/08/24 12:38 125 MLS/HR Famotidine (Pepcid 20mg Vial) 20 mg DAILY IV 02/06/24 09:00 03/07/24 08:59 02/11/24 10:59 20 MG Folic Acid (FolVITE 5 MG/ML VIAL) 1 mg DAILY IV 02/08/24 09:00 03/09/24 08:59 02/11/24 11:09 1 MG Gabapentin (NEURontin 100 mg CAP) 100 mg BID PO 02/06/24 21:00 03/07/24 08:59 02/11/24 10:59 100 MG Gabapentin (NEURontin 100 mg CAP) 300 mg DAILY PO 02/06/24 09:00 02/06/24 18:47 DC 02/06/24 09:13 300 MG Hydralazine HCl (APRESOLine 20MG INJ) 5 mg Q6H PRN IV For:SBP above 160;DBP above 90 02/08/24 18:00 03/09/24 17:59 Hydralazine HCl (APRESOLine 20MG INJ) 10 mg Q6H PRN IV For:SBP above 160;DBP above 90 02/06/24 00:00 02/08/24 13:58 DC Ipratropium [place] (AtrovENT UD) 0.5 MG [id number] IH 02/06/24 22:00 03/07/24 21:59 02/09/24 23:39 0.5 MG Lactated Ringer's 1,000 ml @ 75 mls/hr [id number] IV 02/10/24 12:30 03/11/24 12:29 02/11/24 15:41 75 MLS/HR Levothyroxine Sodium (SYNTHroid 50MCG TAB) 50 mcg SYN PO 02/06/24 06:30 03/07/24 06:29 02/11/24 05:52 50 MCG Lisinopril (Prinivil 5mg) 5 mg DAILY PO 02/07/24 09:00 02/07/24 07:35 DC Lorazepam (AtiVAN) 0.5 mg Q6H PRN PO ANXIETY/AGITATION 02/06/24 00:30 02/07/24 00:35 DC 02/06/24 22:11 0.5 MG Magnesium Sulfate 50 ml @ 0 mls/hr PROTOCOL PRN IV OTHER [SEE ORDER COMMENTS] 02/06/24 00:00 03/07/24 00:00 02/06/24 15:11 50 MLS/HR Magnesium Sulfate 50 ml @ 0 mls/hr PROTOCOL PRN IV LOW MAGNESIUM 02/06/24 07:00 02/06/24 17:11 DC Melatonin (Melatonin) 10 mg HS PO 02/07/24 21:00 03/08/24 20:59 02/10/24 20:52 10 MG Metoprolol Succinate (TopROL XL) 50 mg DAILY PO 02/06/24 09:00 03/07/24 08:59 02/11/24 10:59 50 MG Metoprolol Tartrate (loprESSOR) 5 mg AD PRN IV INCREASED HEART RATE 02/08/24 14:00 03/09/24 13:59 Metoprolol Tartrate (loprESSOR) 10 mg AD PRN IV INCREASED HEART RATE 02/07/24 07:00 02/08/24 13:58 DC 02/07/24 06:56 10 MG Metoprolol Tartrate (loprESSOR) 10 mg Q6H IV 02/07/24 08:00 02/08/24 13:58 DC 02/08/24 09:32 10 MG Metronidazole/ Sodium Chloride 100 ml @ 100 mls/hr Q8H6 IVPB 02/06/24 06:00 02/06/24 11:43 DC 02/06/24 06:54 100 MLS/HR Montelukast Sodium (SinguLAIR) 10 mg HS PO 02/06/24 21:00 03/07/24 20:59 02/10/24 20:52 10 MG Multivitamins/ Minerals 10 ml/ Folic Acid 1 mg/ Thiamine HCl 100 mg/Sodium Chloride 1,010 ml @ 75 mls/hr DAILY IV 02/07/24 12:00 02/08/24 13:58 DC 02/08/24 10:01 75 MLS/HR Multivitamins/ Minerals 10 ml/ Folic Acid 1 mg/ Thiamine HCl 100 mg/Sodium Chloride 1,010 ml @ 75 mls/hr DAILY IV 02/09/24 09:00 02/10/24 12:25 DC 02/10/24 09:36 75 MLS/HR Nitroglycerin (Nitrostat) 0.4 mg AD SL 02/06/24 00:00 03/07/24 00:00 Ondansetron HCl (zoFRAN 4MG INJ) 4 mg Q6H PRN IV NAUSEA/VOMITING 02/06/24 00:00 03/07/24 00:00 Pharmacy Profile Note (Pharmacy Communication) 1 each PROTOCOL PRN MISC ETOH Withdrawal Score changes 02/07/24 14:00 02/07/24 13:44 DC Piperacillin Sod/ Tazobactam Sod (Zosyn 3.375gm+NS 50ml) 3.375 gm Q8H IV 02/06/24 14:00 02/08/24 13:58 DC 02/08/24 06:48 3.375 GM Potassium Chloride 100 ml @ 50 mls/hr AD PRN IV POTASSIUM PROTOCOL 02/06/24 06:30 02/06/24 06:35 DC Potassium Chloride 100 ml @ 100 mls/hr AD PRN IV POTASSIUM PROTOCOL 02/06/24 00:00 02/06/24 06:34 DC 02/06/24 06:15 100 MLS/HR Potassium Chloride 100 ml @ 100 mls/hr AD PRN IV POTASSIUM PROTOCOL 02/06/24 06:30 03/07/24 06:29 Potassium Chloride (K-Dur 10meq Sr Tab) 10 meq DAILY PO 02/06/24 09:00 02/06/24 06:34 DC Potassium Chloride (K-Dur/Klor-Con 20meq) 20 meq AD PRN PO POTASSIUM PROTOCOL 02/06/24 06:30 03/07/24 06:29 02/11/24 11:00 20 MEQ Potassium Chloride (KCl 10% Elixir 20meq/15ml) 20 meq AD PRN PO POTASSIUM PROTOCOL 02/06/24 06:30 03/07/24 06:29 02/10/24 06:17 20 MEQ Prednisone (deltaSONE/ oraSONE 20MG TAB) 20 mg BID PO 02/06/24 21:00 02/07/24 20:54 DC 02/07/24 20:44 20 MG Ropinirole HCl (REquip) 1 mg BID PO 02/06/24 09:00 02/07/24 20:55 DC 02/07/24 20:44 1 MG Tamsulosin HCl (FloMAX) 0.4 mg DAILY PO 02/09/24 21:00 03/10/24 20:59 02/11/24 10:58 0.4 MG Thiamine HCl (Vitamin B-1) 300 mg ONCE IVP 02/07/24 14:00 02/07/24 13:43 DC DIAGNOSTICS / RADIOLOGY: [ ] ASSESSMENT: Elevated troponin rule out ACS POA Acute on chronic CHF POA Acute respiratory failure POA Persistent atrial fibrillation POA Hypokalemia POA Intractable abdominal pain POA Suspected gastroenteritis POA Elevated liver enzymes POA Acute on chronic renal insufficiency POA Anemia POA Hypertension POA Hyperlipidemia POA Hypothyroidism POA Coronary artery disease with cardiac stent x4 POA History of aortic valve replacement POA AICD status POA Acute metabolic encephalopathy PLAN: Remains admitted to the medical floor Continue quality assurance monitor chassis Continue diet advanced as tolerated Cardiology consultation requested, input noted and appreciated HIDA scan unremarkable Continue aspirin 81 mg p.o. daily Continue antibiotics per ID Continue on Famotidine 20 mg IV daily for GI prophylaxis We will replace electrolytes as needed per protocol Continue on insulin sliding scale AC & HS with hypoglycemia protocol Continue prn medication for fever,pain,nausea and vomiting Reconcile home meds Replace electrolytes IV per protocol GI and DVT prophylaxis Further orders to follow depending on above results Disposition: Pending SNF placement No family members at bedside to discuss goals of care. LIANNA WILKINS MD Feb 11, 2024 18:07
[2024-02-11 19:41] VITALS: O2SAT 100
[2024-02-11 20:46] VITALS: BP 134/78; PULSE 62; RESP 16; TEMP 97.5
[2024-02-12] VITALS (7 sets, daily range): BP systolic 119–139; BP diastolic 53–86; PULSE 66–90; RESP 16–18; TEMP 97.7–98.6; O2SAT 90–99
[2024-02-12 15:15] LABS: C DIFFICILE TOXIN A/B Not Detected (Not Detected); ENTEROAGGREGATIVE ECOLI Not Detected (Not Detected); GIARDIA LAMBLIA Not Detected (Not Detected); PLESIOMONAS SHIGELOIDES Not Detected (Not Detected); SAPOVIRUS Not Detected (Not Detected); SHIGELLA/ENTEROINVASIVE E COLI Not Detected (Not Detected); VIBRIO Not Detected (Not Detected); VIBRIO CHOLERAE Not Detected (Not Detected)
--- NOTE | 2024-02-12 15:54 | HMCIMG ---
MODIFIED BARIUM SWALLOW W CINE REASON: as per ADRIANNE SNIDER FINDINGS: Fluoroscopic assistance was provided to the speech pathologist while performing examination. For findings and dietary recommendations, refer to speech pathologist's report. FLUORO TIME: 3.2 minutes IMPRESSION: Modified barium swallow as described.
--- NOTE | 2024-02-12 17:56 | DS ---
Discharge Summary Hospital Course Summary: 84 yo M presented with epigastric pain and left upper quadrant pain associate with shortness of breath. He was admitted, given a short course of lasix, repeat echo showed normal EF with stage III diastolic dysfunction. Lipase was normal, no intraabdominal abnormalities were noted. He had one night of deli rium that resolved quickly. He was assessed by PT who recommended rehab prior to discharge back home. Cardiology was consulted, and cleared the patient from a cardiac standpoint. By hospital day 7 he was accepted to SNF and transferred. Executive Director Of Marketing(s): Cardiology Pulmonology Nephrology Procedure(s): CHEST 1VW HISTORY: Hypoxia COMPARISON: 02/05/2024 FINDINGS: A frontal projection of the chest was obtained. Mild bilateral pulmonary infiltrates are seen may be related to mild pulmonary vascular congestion with possible superimposed pneumonitis. Poststernotomy changes are seen. The heart is markedly enlarged. Degenerative changes of the thoracolumbar spine are present. Pacemaker is seen entering from the left. No evidence of aortic calcification is seen. IMPRESSION: 1. Mild bilateral pulmonary infiltrates are seen may be related to mild pulmonary vascular congestion with possible superimposed pneumonitis. Markedly enlarged heart. CT HEAD/BRAIN W/O CONTRAST HISTORY: Altered mental status COMPARISON: None TECHNIQUE: Multiple sequential axial images of the head were obtained from the base of the skull through vertex. Patient was not given contrast through intravenous route. FINDINGS: The ventricles and extraventricular CSF spaces are dilated consistent with cerebral atrophy. Nonspecific white matter changes seen. There is no midline shift, mass effect or herniation. No acute intracranial bleed is seen. Visualized portion of the paranasal sinuses are grossly within normal limits. There is atherosclerosis. IMPRESSION: 1. No acute intracranial bleed is seen. 2. Atrophy with white matter changes. Echocardiogram: Conclusion The right ventricle is severely dilated. Right ventricular systolic function is severely reduced. The left atrium is severely dilated. The right atrium is severely dilated. Prosthetic aortic valve is normal in appearance and well seated. NM HIDA WO EF/CCK REASON: Distended gallbladder. COMPARISON: None TECHNIQUE: Hepatobiliary imaging study was performed with 6.5 mCi of Choletec through intravenous route. 2 hour delayed images were obtained. FINDINGS: Normal visualization of gallbladder and bowel activity. IMPRESSION: Normal hepatobiliary imaging study. US ABDOMINAL COMPLETE HISTORY: Abdominal pain COMPARISON: None TECHNIQUE: Multiple transverse and longitudinal ultrasound images of the abdomen were obtained. FINDINGS: Abdominal aorta and inferior vena cava are unremarkable. The visualized portion of the pancreas is within normal limits. Liver measures 16.2 cm. Liver is echogenic consistent with liver parenchymal disease. Gallstones are seen in the distended gallbladder. Common duct measures 3 mm. No evidence of gallbladder wall thickening is seen. There is right renal cyst measuring 10 mm x 13 mm. There is left renal cyst measuring 2.4 cm x 3.3 cm. The study is limited due to overlying bowel gas. Both kidneys are seen. Right kidney measures 11.5 x 6.4 x 5.7 cm. Left kidney measures 10 x 5.2 x 5.9 cm. No hydronephrosis is seen of the both kidneys. Spleen measures 11.9 cm. The spleen is grossly unremarkable. IMPRESSION: 1. Gallstones in the distended gallbladder. No ductal dilatation is seen. 2. No hydronephrosis is seen. Bilateral renal cysts. CT ABDOMEN/PELVIS W/O CONTRAST CLINICAL HISTORY: PAIN COMPARISON: 04/13/2016 TECHNIQUE: Sequential axial images of abdomen and pelvis without contrast and with sagittal and coronal reconstructions. CT was performed with one or more of the following dose reduction techniques: automated exposure control, adjustment of the mA and/or kV according to patient size, or use of iterative reconstruction technique FINDINGS: There is mild atelectasis lung bases. There is demonstrated is cardiomegaly and artifact from pacemaker wires. The liver is and spleen are unremarkable. There are multiple gallbladder calculi. The pancreas adrenal glands and right kidney and bladder are unremarkable. Note is made of a stable exophytic left renal cortical cyst and left renal cortical thinning. There is no identified bowel obstruction. There is no bulky abdominal or retroperitoneal lymphadenopathy. There is no free air or free fluid. The appendix is not identified but there are no findings to suggest acute appendicitis. The prostate gland appears unremarkable. There is stable advanced degenerative changes of the spine. There is also very mild calcified atherosclerotic vascular disease of the aorta without aneurysm dilatation. IMPRESSION: Stable cardiomegaly. Cholelithiasis. Left renal exophytic cortical cyst with renal cortical thinning. Assessment/Plan: Elevated troponin rule out ACS POA Acute on chronic CHF POA Acute respiratory failure POA Persistent atrial fibrillation POA Hypokalemia POA Intractable abdominal pain POA Suspected gastroenteritis POA Elevated liver enzymes POA Acute on chronic renal insufficiency POA Anemia POA Hypertension POA Hyperlipidemia POA Hypothyroidism POA Coronary artery disease with cardiac stent x4 POA History of aortic valve replacement POA AICD status POA Acute metabolic encephalopathy Discharge Instructions: Accepting institution to determine follow up Pt will need eventual follow up with his PCP in 3-7 days 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-3 weeks Home Medications: Reported Medications Lorazepam (Lorazepam) 2 Mg/Ml Oral.conc, 0.5 MG PO Q6HPRN, ML 02/05/24 Apixaban (Eliquis) 2.5 Mg Tablet, 2.5 MG PO BID, TAB 02/05/24 Ropinirole HCl (Ropinirole HCl) 1 Mg Tablet, 1 MG PO BID, TAB 02/05/24 Ibuprofen (Ibuprofen) 600 Mg Tablet, 600 MG PO Q8H PRN for PAIN, TAB 02/05/24 Atorvastatin Calcium (LIPITOR) 20 Mg Tab, 20 MG PO HS, TAB 02/05/24 Potassium Chloride (Potassium Chloride) 10 Meq Tab.er.prt, 10 MEQ PO DAILY 02/05/24 Doxycycline Hyclate (Doxycycline Hyclate) 100 Mg Capsule, 100 MG PO DAILY, CAP 02/05/24 Metoprolol Succinate (Metoprolol Succinate) 50 Mg Tab.er.24h, 50 MG PO DAILY, TAB 02/05/24 Gabapentin (Gabapentin) 100 Mg Capsule, 300 MG PO DAILY, CAP 02/05/24 Bumetanide (Bumetanide) 2 Mg Tablet, 2 MG PO DAILY, TAB 02/05/24 Nitroglycerin (Nitroglycerin) 0.4 Mg Tab.subl, 0.4 MG SL Q5MINS, TAB.SL 02/05/24 Allopurinol (Allopurinol) 100 Mg Tablet, 200 MG PO DAILY, TAB 02/05/24 Levothyroxine Sodium (Levothyroxine) 50 Mcg Capsule, 50 MCG PO ONCE, CAP 02/05/24 Discontinued Reported Medications Potassium Chloride (Potassium Chloride) 10 Meq Capsule.er, 10 MEQ PO DAILY, CAP 04/13/16 Flurazepam HCl (Flurazepam HCl) 15 Mg Capsule, 15 MG PO HS, CAP 04/13/16 Amlodipine Besylate (Amlodipine Besylate) 10 Mg Tablet, 10 MG PO DAILY, TAB 04/13/16 Metoprolol Succinate (Metoprolol Succinate) 100 Mg Tab.er.24h, 100 MG PO DAILY, TAB 04/13/16 Ramipril (Ramipril) 10 Mg Capsule, 20 MG PO DAILY, CAP 06/06/15 Pramipexole Di-HCl (Mirapex) 0.5 Mg Tablet, 0.5 MG PO HS, TAB 06/06/15 Omeprazole (Omeprazole) 20 Mg Capsule.dr, 20 MG PO DAILY, CAP 06/06/15 Levothyroxine Sodium (Levothyroxine Sodium) 25 Mcg Tablet, 25 MCG PO BID, TAB 06/06/15 Furosemide (Furosemide) 40 Mg Tablet, 40 MG PO DAILY, TAB 06/06/15 Apixaban (Eliquis) 2.5 Mg Tablet, 5 MG PO BID, TAB 06/06/15 Atorvastatin Calcium (Atorvastatin Calcium) 40 Mg Tablet, 40 MG PO DAILY, TAB 06/06/15 Adalimumab (Humira) 40 Mg/0.8 Ml Kit, 40 MG SQ [id number], KIT 03/17/14 Lorazepam (Lorazepam) 2 Mg/Ml Oral.conc, 0.5 MG PO Q6HPRN, ML 02/05/24 Discontinued Scripts Clindamycin HCl (Clindamycin HCl) 300 Mg Capsule, 1 CAP PO QID for 10 Days, #40 CAP 0 Refills Prov:ARETMIO PINEDO MD 03/18/22 Amoxicillin/Potassium Clav (Amox Tr-K Clv 875-125 mg Tab) 1 Each Tablet, 1 EACH PO BID for 10 Days, #20 TAB Prov:ARTEMIO PINEDO MD 03/18/22 Time spent arranging discharge: 31-60 minutes LIANNA WILKINS MD Feb 12, 2024 17:56
--- NOTE | 2024-02-12 18:55 | PN ---
SUBJECTIVE: An 84-year-old male initially presented and found to have significant confusion. He has had acute renal failure in the hospital. Creatinine continues to slowly improve. He continues to require one-to-one sitter and he is being seen as a followup visit for all of the above. He remains on the banana bag. REVIEW OF SYSTEMS: He is really unable to give any review of systems. He is quite confused. PHYSICAL EXAMINATION: VITAL SIGNS: Blood pressure 119/80, pulse in the 60s. GENERAL: He is a chronically ill male, elderly, lying in bed on medical floor. HEENT: Head is atraumatic. Pupils equal, roving to light. Oropharynx is without exudate. Nares clear. NECK: There is no JVP. There is no thyromegaly. CARDIOVASCULAR: Regular. There is no S3, S4 gallop. LUNGS: Coarse with equal thoracic movement. ABDOMEN: Soft, nondistended, nontender. EXTREMITIES: Reveal no clubbing, no cyanosis. NEUROLOGIC: He is confused. LABORATORY DATA: Sodium 142, potassium 3.5, BUN 34, creatinine 1.6. Hemoglobin 10, hematocrit 33. IMPRESSION: * Renal dysfunction. * Electrolyte abnormalities. * Altered mental status. * Electrolyte abnormalities. PLAN: The patient continues with improvement of his renal function. The patient remains on the banana bag. He is being seen by case management in regards to final disposition, which will be the senior living. We will continue to follow closely and make further recommendations accordingly. TID: [id number] RECEIPT: [id number]
[2024-02-13] VITALS (7 sets, daily range): BP systolic 120–128; BP diastolic 73–79; PULSE 63–89; RESP 17–20; TEMP 97.7–98.2; O2SAT 96
--- NOTE | 2024-02-13 11:50 | PN ---
FOLLOWUP PROGRESS NOTE SUBJECTIVE: An 84-year-old male with a history of hypertension and coronary artery disease. He initially presented with acute renal failure. The patient with significant confusion. The patient's renal function continues to slowly improve. The patient is tolerating some amount of a diet and he is being seen for all of the above. The patient is being seen by case management for placement at the [facility]. REVIEW OF SYSTEMS: GENERAL: He is feeling weak and tired. HEENT: No change in vision. No change in hearing. CARDIOVASCULAR: There is no current chest pain or palpitations. PULMONARY: There is no shortness of breath. GASTROINTESTINAL: Appetite is poor. MUSCULOSKELETAL: Complains of weakness. PHYSICAL EXAMINATION: VITAL SIGNS: Blood pressure is 120/79, pulse in the 80s. GENERAL: He is a chronically ill male, elderly, lying in bed on the medical floor. HEENT: Head is atraumatic. Pupils equal, roving to light. Oropharynx is without exudate. Nares clear. NECK: There is no JVP. There is no thyromegaly, no mass. CARDIOVASCULAR: Regular. There is no S3, S4 gallop. LUNGS: Coarse with equal thoracic movement. ABDOMEN: Soft, nondistended, nontender. EXTREMITIES: Reveal no clubbing, no cyanosis. NEUROLOGIC: He is still confused. LABORATORY DATA: BUN 34, creatinine 1.6. IMPRESSION: * Acute renal failure. * Debilitation. * Hypertension. * Coronary artery disease. PLAN: The patient's renal function continues to slowly improve. We will repeat the chem-7 in the a.m. The patient is being seen by case management in regards to placement at the retirement. We will continue to follow closely. I did discuss previously with the patient's family. TID: [id number] RECEIPT: [id number]
--- NOTE | 2024-02-13 12:30 | PN ---
[facility] PROGRESS NOTE Date of Service: Feb 13, 2024 Time of Service: 12:[address] Grajeda SUBJECTIVE: The patient has been seen and examined during my rounding, no acute events overnight, BP 114/70, afebrile, saturating normal on room air, he denied chest pain, shortness shortness for breath, no nausea, no vomiting, no abdominal discomfort. No family members at bedside during my visit. 02/06 the patient has been seen and examined during my rounding today, per my discussion with the nurse that is taking care of the patient, he became confused last night, during my visit sitter is at bedside, the patient following simple commands, but not agitated, not combative. is at bedside during my visit, updated. Results of HIDA scan reviewed, discussed with her. All questions answered. 02/07 the patient has been seen and examined during my rounding, no acute events overnight, the patient remains with bedside sitter. He is on multivitamin IV, he is still looks more hydrated and more awake today compared to yesterday, not agitated, not combative, he is able to tell me his name. No family members at bedside during my visit. BP 126/74, rest of the vital signs are unremarkable. 02/08 the patient has been seen and examined during my rounding, no acute events overnight, he is sitting comfortably in the chair, getting multivitamin IV, he is more awake, following more commands, cooperating well, not agitated, he is no longer requiring a bedside sitter. BP 97/60, rest of the vital signs are unremarkable, no family members at bedside during my visit. 02/09 the patient has been seen and examined during my rounding, still confused but answering questions more appropriate today compared to yesterday, having breakfast during my visit tolerating well, no nausea, no vomiting, no abdominal pain. Sitter is at bedside. No family members present in the room during my visit. BP 123/83, afebrile, saturating normal on room air. 02/10 Pt seen at bedside, no acute events overnight. Creatinine improved from 1.9 down to 1.6, remainder of his labs and vitals are relatively unremarkable. Pending placement to SNF 02/11 84 yo M presented with epigastric pain and left upper quadrant pain associate with shortness of breath. He was admitted, given a short course of lasix, repeat echo showed normal EF with stage III diastolic dysfunction. Lipase was normal, no intraabdominal abnormalities were noted. He had one night of delirium that resolved quickly. He was assessed by PT who recommended rehab prior to discharge back home. Cardiology was consulted, and cleared the patient from a cardiac standpoint. By hospital day 7 he was accepted to SNF and gutiérrez sferred. 02/12 patient was seen disposition 420 chair. Patient was accepted to SNF pending discharge patient denies any shortness of breath, chest pain, nausea, any other discomfort at this moment. REVIEW OF SYSTEMS 12 point ROS negative unless noted in HPI PHYSICAL EXAM GENERAL APPEARANCE: Resting comfortably in bed, less confused, dry oral mucosa noted. NEUROLOGICAL: Cranial nerves II-XII grossly intact. Motor is 5/5 in bilateral upper and lower extremities proximal to distal. No sensory deficits. HEENT: Face is symmetric. Pupils are equal and reactive. Extraocular movements are intact. NECK: Supple. No JVD. No thyromegaly. No submental, submandibular, pre- /postauricular, occipital or supraclavicular lymphadenopathy. CHEST: Normal chest expansion. No Telemetry. LUNGS: Absence of any rales, rhonchi or any wheezing. CARDIOVASCULAR: Regular. S1 and S2 normal. No appreciable rubs, murmurs or gallops. ABDOMEN: No rebound tenderness : Deferred. No Castañeda. EXTREMITIES: Trace edema to bilateral lower extremities SKIN: No skin breakdown. Vital Signs (last 8hr) Date Time Temp Pulse Resp B/P (MAP) Pulse Ox O2 Delivery O2 Flow Rate FiO2 02/13/24 11:20 97.7 83 17 120/79 93 Room Air 21 02/13/24 08:14 97.9 74 17 128/73 96 Room Air 21 02/13/24 08:00 96 Room Air* 0 02/13/24 04:54 98.1 89 20 121/76 94 Room Air LABS: Current Medications Medications (Trade) Dose Ordered Sig/Trisha Route PRN Reason Start Time Stop Time Status Last Admin Dose Admin Acetaminophen (TYLenol 325MG TAB) 650 mg Q4H PRN PO MILD PAIN (1-3) 02/06/24 00:00 03/07/24 00:00 Acetaminophen (TYLenol 325MG TAB) 650 mg Q6H PRN PO TEMPERATURE GREATER THAN 101.5 02/06/24 00:00 03/07/24 00:00 Albuterol (DUOneb) 1 udvial [id number] IH 02/06/24 02:00 02/06/24 18:47 DC 02/06/24 18:41 1 UDVIAL Allopurinol (ZYLOprim 100MG) 200 mg DAILY PO 02/06/24 09:00 02/06/24 17:11 DC Apixaban (EliquIS 2.5 mg) 2.5 mg BID PO 02/06/24 09:00 02/07/24 07:24 DC 02/06/24 22:11 2.5 MG Apixaban (EliquIS 2.5 mg) 2.5 mg BID PO 02/09/24 21:00 03/10/24 20:59 02/13/24 09:26 2.5 MG Aspirin (Aspirin 81mg Ec Tab) 81 mg DAILY PO 02/06/24 09:00 02/08/24 07:58 DC 02/07/24 09:23 81 MG Atorvastatin Calcium (LIPItor 20MG) 20 mg HS PO 02/06/24 21:00 03/07/24 20:59 02/12/24 20:23 20 MG Azithromycin 250 ml @ 250 mls/hr Q24H IVPB 02/09/24 12:00 02/19/24 11:59 02/12/24 11:01 250 MLS/HR Bumetanide (Bumex 1mg Tab) 2 mg BID PO 02/06/24 19:00 02/06/24 19:08 DC Bumetanide (Bumex 1mg Tab) 2 mg BID PO 02/07/24 09:00 02/06/24 19:12 DC Bumetanide (Bumex 1mg Tab) 2 mg DAILY PO 02/06/24 09:00 02/06/24 18:44 DC 02/06/24 09:06 2 MG Bumetanide (Bumex 1mg Vial) 1 mg BID IVP 02/07/24 06:00 02/08/24 07:58 DC 02/07/24 20:45 1 MG Ceftriaxone Sodium (ROCEphine 1G INJ) 1 gm Q24H IVPB 02/08/24 14:00 02/18/24 13:59 02/12/24 16:25 1 GM Chlordiazepoxide HCl (LIBrium 25 MG CAP) 25 mg Q2H PRN PO ALCOHOL WITHDRAWAL PROTOCOL 02/07/24 14:00 02/08/24 13:58 DC 02/08/24 03:34 25 MG Chlordiazepoxide HCl (LIBrium 25 MG CAP) 50 mg Q1H PRN PO ALCOHOL WITHDRAWAL PROTOCOL 02/07/24 14:00 02/08/24 13:58 DC Doxycycline Hyclate 250 ml @ 125 mls/hr Q12H IV 02/06/24 12:00 02/08/24 14:05 DC 02/08/24 12:38 125 MLS/HR Famotidine (Pepcid 20mg Vial) 20 mg DAILY IV 02/06/24 09:00 03/07/24 08:59 02/13/24 09:37 20 MG Folic Acid (FolVITE 5 MG/ML VIAL) 1 mg DAILY IV 02/08/24 09:00 03/09/24 08:59 02/13/24 09:26 1 MG Gabapentin (NEURontin 100 mg CAP) 100 mg BID PO 02/06/24 21:00 03/07/24 08:59 02/13/24 09:26 100 MG Gabapentin (NEURontin 100 mg CAP) 300 mg DAILY PO 02/06/24 09:00 02/06/24 18:47 DC 02/06/24 09:13 300 MG Hydralazine HCl (APRESOLine 20MG INJ) 5 mg Q6H PRN IV For:SBP above 160;DBP above 90 02/08/24 18:00 03/09/24 17:59 Hydralazine HCl (APRESOLine 20MG INJ) 10 mg Q6H PRN IV For:SBP above 160;DBP above 90 02/06/24 00:00 02/08/24 13:58 DC Ipratropium Wheatley (AtrovENT UD) 0.5 MG [id number] IH 02/06/24 22:00 03/07/24 21:59 02/09/24 23:39 0.5 MG Lactated Ringer's 1,000 ml @ 75 mls/hr [id number] IV 02/10/24 12:30 03/11/24 12:29 02/12/24 11:01 75 MLS/HR Levothyroxine Sodium (SYNTHroid 50MCG TAB) 50 mcg SYN PO 02/06/24 06:30 03/07/24 06:29 02/13/24 06:32 50 MCG Lisinopril (Prinivil 5mg) 5 mg DAILY PO 02/07/24 09:00 02/07/24 07:35 DC Lorazepam (AtiVAN) 0.5 mg Q6H PRN PO ANXIETY/AGITATION 02/06/24 00:30 02/07/24 00:35 DC 02/06/24 22:11 0.5 MG Magnesium Sulfate 50 ml @ 0 mls/hr PROTOCOL PRN IV OTHER [SEE ORDER COMMENTS] 02/06/24 00:00 03/07/24 00:00 02/06/24 15:11 50 MLS/HR Magnesium Sulfate 50 ml @ 0 mls/hr PROTOCOL PRN IV LOW MAGNESIUM 02/06/24 07:00 02/06/24 17:11 DC Melatonin (Melatonin) 10 mg HS PO 02/07/24 21:00 03/08/24 20:59 02/12/24 20:23 10 MG Metoprolol Succinate (TopROL XL) 50 mg DAILY PO 02/06/24 09:00 03/07/24 08:59 02/13/24 09:26 50 MG Metoprolol Tartrate (loprESSOR) 5 mg AD PRN IV INCREASED HEART RATE 02/08/24 14:00 03/09/24 13:59 Metoprolol Tartrate (loprESSOR) 10 mg AD PRN IV INCREASED HEART RATE 02/07/24 07:00 02/08/24 13:58 DC 02/07/24 06:56 10 MG Metoprolol Tartrate (loprESSOR) 10 mg Q6H IV 02/07/24 08:00 02/08/24 13:58 DC 02/08/24 09:32 10 MG Metronidazole/ Sodium Chloride 100 ml @ 100 mls/hr Q8H6 IVPB 02/06/24 06:00 02/06/24 11:43 DC 02/06/24 06:54 100 MLS/HR Montelukast Sodium (SinguLAIR) 10 mg HS PO 02/06/24 21:00 03/07/24 20:59 02/12/24 20:22 10 MG Multivitamins/ Minerals 10 ml/ Folic Acid 1 mg/ Thiamine HCl 100 mg/Sodium Chloride 1,010 ml @ 75 mls/hr DAILY IV 02/07/24 12:00 02/08/24 13:58 DC 02/08/24 10:01 75 MLS/HR Multivitamins/ Minerals 10 ml/ Folic Acid 1 mg/ Thiamine HCl 100 mg/Sodium Chloride 1,010 ml @ 75 mls/hr DAILY IV 02/09/24 09:00 02/10/24 12:25 DC 02/10/24 09:36 75 MLS/HR Nitroglycerin (Nitrostat) 0.4 mg AD SL 02/06/24 00:00 03/07/24 00:00 Ondansetron HCl (zoFRAN 4MG INJ) 4 mg Q6H PRN IV NAUSEA/VOMITING 02/06/24 00:00 03/07/24 00:00 Pharmacy Profile Note (Pharmacy Communication) 1 each PROTOCOL PRN MISC ETOH Withdrawal Score changes 02/07/24 14:00 02/07/24 13:44 DC Piperacillin Sod/ Tazobactam Sod (Zosyn 3.375gm+NS 50ml) 3.375 gm Q8H IV 02/06/24 14:00 02/08/24 13:58 DC 02/08/24 06:48 3.375 GM Potassium Chloride 100 ml @ 50 mls/hr AD PRN IV POTASSIUM PROTOCOL 02/06/24 06:30 02/06/24 06:35 DC Potassium Chloride 100 ml @ 100 mls/hr AD PRN IV POTASSIUM PROTOCOL 02/06/24 00:00 02/06/24 06:34 DC 02/06/24 06:15 100 MLS/HR Potassium Chloride 100 ml @ 100 mls/hr AD PRN IV POTASSIUM PROTOCOL 02/06/24 06:30 03/07/24 06:29 Potassium Chloride (K-Dur 10meq Sr Tab) 10 meq DAILY PO 02/06/24 09:00 02/06/24 06:34 DC Potassium Chloride (K-Dur/Klor-Con 20meq) 20 meq AD PRN PO POTASSIUM PROTOCOL 02/06/24 06:30 03/07/24 06:29 02/12/24 16:25 20 MEQ Potassium Chloride (KCl 10% Elixir 20meq/15ml) 20 meq AD PRN PO POTASSIUM PROTOCOL 02/06/24 06:30 03/07/24 06:29 02/10/24 06:17 20 MEQ Prednisone (deltaSONE/ oraSONE 20MG TAB) 20 mg BID PO 02/06/24 21:00 02/07/24 20:54 DC 02/07/24 20:44 20 MG Ropinirole HCl (REquip) 1 mg BID PO 02/06/24 09:00 02/07/24 20:55 DC 02/07/24 20:44 1 MG Tamsulosin HCl (FloMAX) 0.4 mg DAILY PO 02/09/24 21:00 03/10/24 20:59 02/13/24 09:26 0.4 MG Thiamine HCl (Vitamin B-1) 300 mg ONCE IVP 02/07/24 14:00 02/07/24 13:43 DC DIAGNOSTICS / RADIOLOGY: [ ] Elevated troponin rule out ACS POA Acute on chronic CHF POA Acute respiratory failure POA Persistent atrial fibrillation POA Hypokalemia POA Intractable abdominal pain POA Suspected gastroenteritis POA Elevated liver enzymes POA Acute on chronic renal insufficiency POA Anemia POA Hypertension POA Hyperlipidemia POA Hypothyroidism POA Coronary artery disease with cardiac stent x4 POA History of aortic valve replacement POA AICD status POA Acute metabolic encephalopathy ATTESTATION BY PHYSICIAN I have seen and examined the patient. I reviewed the documentation, medical decision making, and treatment plan as noted by the mid-level provider above. I agree with the findings and plan of care. LAURA GRAJEDA MD, [facility] Feb 13, 2024 12:30
== END 2024-02-13 14:50 | DRG 291 ==
LOC: EDH 19:18 → EDHIP 23:57 → 2DH 02-06 04:23 → 4DH 02-10 03:00
PROVIDERS: ADMIT Internal Medicine; ATTEND Internal Medicine
DX: I13.0 Hypertensive heart and chronic kidney disease with heart failure and stage 1 through stage 4 chronic kidney disease, or unspecified chronic kidney disease (principal); G93.41 Metabolic encephalopathy; J18.9 Pneumonia, unspecified organism; J96.01 Acute respiratory failure with hypoxia; I50.43 Acute on chronic combined systolic (congestive) and diastolic (congestive) heart failure; K80.10 Calculus of gallbladder with chronic cholecystitis without obstruction; N17.9 Acute kidney failure, unspecified; I87.1 Compression of vein; I48.19 Other persistent atrial fibrillation; K50.90 Crohn's disease, unspecified, without complications; Z20.822 Contact with and (suspected) exposure to COVID-19; K52.9 Noninfective gastroenteritis and colitis, unspecified; E87.6 Hypokalemia; N18.31 Chronic kidney disease, stage 3a; K82.8 Other specified diseases of gallbladder; R74.8 Abnormal levels of other serum enzymes; D64.9 Anemia, unspecified; E03.9 Hypothyroidism, unspecified; I25.10 Atherosclerotic heart disease of native coronary artery without angina pectoris; R62.7 Adult failure to thrive; E11.22 Type 2 diabetes mellitus with diabetic chronic kidney disease; E78.00 Pure hypercholesterolemia, unspecified; K76.89 Other specified diseases of liver; F03.90 Unspecified dementia, unspecified severity, without behavioral disturbance, psychotic disturbance, mood disturbance, and anxiety; G25.81 Restless legs syndrome; D69.6 Thrombocytopenia, unspecified; E86.9 Volume depletion, unspecified; Z95.5 Presence of coronary angioplasty implant and graft; Z95.810 Presence of automatic (implantable) cardiac defibrillator; Z79.01 Long term (current) use of anticoagulants; Z95.3 Presence of xenogenic heart valve; Z95.1 Presence of aortocoronary bypass graft; Z87.891 Personal history of nicotine dependence; Z82.49 Family history of ischemic heart disease and other diseases of the circulatory system; Z79.899 Other long term (current) drug therapy; Z79.82 Long term (current) use of aspirin
CPT/HCPCS: 36415; 36600; 70450; 71045; 74176; 74230; 76700; 78226; 80053; 80061; 80305; 81003; 82140; 82270; 82435; 82550; 82803; 82947; 82948; 83036; 83605; 83690; 83735; 83880; 84132; 84295; 84443; 84484; 85018; 85025; 85027; 85651; 87426; 87507; 87804; 92507; 92610; 92611; 93005; 93306; 93356; 94640; 94664; 94760; A9537; G0378; J0456; J0696; J1630; J1940; J2543; J3411; J3475; J3480; J3486; J3490; J7030; A4600